=== PATIENT | male | born 1975 | race American Indian/Alaskan Native ===

== ENCOUNTER 2021-09-24 12:27 | Inpatient (IN) | payer MEDICARE ==
[2021-09-24] MEDS ORDERED: HYDROmorphone 1 MG/1 ML INJ IV ONE ×2 (14:16→17:55)
[2021-09-24] MEDS ORDERED: ONDANSETRON 4 MG/2 ML INJ IV ONE (14:16)
--- NOTE | 2021-09-24 14:55 | Emergency Department Report ---
HPI - General Chief Complaint: Abdominal Pain Time Seen by Provider: 09/24/21 14:06 - HPI HPI: Room 21 Patient is a 46-year-old male presenting with chief complaint of "pain." The patient does not answer questions or provide history despite questioning. History is obtained from the patient's son at bedside. He states yesterday the patient appeared "under the weather" and he stated states because the patient complained of feeling cold and the son noticed slightly increased work of breathing. Has been no history of cough or fever. Today the patient awakened at 11 AM and has been grabbing at his right upper quadrant. During the history the patient acknowledges he has pain but when asked where his pain is or to point the patient does not respond. Eventually the patient is seen pointing at his groin and the son believes he was trying to get to his right upper quadrant. The son believes there may have been an episode of vomiting and there was an episode of diarrhea. The son denies any recent antibiotics ED Past Medical Hx - Past Medical History Hx Renal Disease: Yes (ESRD on hemodialysis) Additional medical history: Hemolytic uremic syndrome - Surgical History Additional Surgical History: Left upper extremity fistula, renal transplant x2 - Family History Family history: no significant - Social History Smoking Status: Never Smoker Substance Use Type: None (Denies illicit drug use) ED Review of Systems ROS: Stated complaint: ABDONINAL PAIN Other details as noted in HPI Comment: Unobtainable due to pts medical conditions (Patient not answering questions) Physical Exam - Physical Exam Vital Signs: Vital Signs 09/24/21 09/24/21 09/24/21 12:33 13:02 13:16 Temperature 98.6 F Pulse Rate 120 H 117 H 118 H Respiratory 16 39 H Rate Blood Pressure Blood Pressure 183/117 [Left] O2 Sat by Pulse 94 93 Oximetry 09/24/21 09/24/21 09/24/21 13:30 13:46 14:00 Temperature Pulse Rate 116 H 116 H 112 H Respiratory 36 H 40 H 38 H Rate Blood Pressure 184/115 184/115 166/95 Blood Pressure [Left] O2 Sat by Pulse 91 91 100 Oximetry Physical Exam: GENERAL: The patient is well-developed well-nourished male lying on stretcher moaning apparently from pain but not answering questions. [] HEENT: Normocephalic. Atraumatic. Extraocular motions are intact. Patient has moist mucous membranes. NECK: Supple. Trachea midline CHEST/LUNGS: Clear to auscultation. There is no respiratory distress noted. HEART/CARDIOVASCULAR: Regular. There is no tachycardia. There is no gallop rub or murmur. ABDOMEN: Abdomen is soft, but patient moans when palpated in the right upper quadrant midepigastric region. Patient has normal bowel sounds. There is no abdominal distention. SKIN: There is no rash. There is no edema. There is no diaphoresis. NEURO: The patient is awake but does not answer questions during the interview or exam. The patient is not cooperative with history. MUSCULOSKELETAL: There is no evidence of acute injury. ED Course Vital Signs 09/24/21 09/24/21 09/24/21 12:33 13:02 13:16 Temperature 98.6 F Pulse Rate 120 H 117 H 118 H Respiratory 16 39 H Rate Blood Pressure Blood Pressure 183/117 [Left] O2 Sat by Pulse 94 93 Oximetry 09/24/21 09/24/21 09/24/21 13:30 13:46 14:00 Temperature Pulse Rate 116 H 116 H 112 H Respiratory 36 H 40 H 38 H Rate Blood Pressure 184/115 184/115 166/95 Blood Pressure [Left] O2 Sat by Pulse 91 91 100 Oximetry - Consultations Consultation #1: 09/24/21 19:17 Nephrology paged ED Medical Decision Making - Lab Data Result diagrams: 09/24/21 14:28 09/24/21 16:12 - Radiology Data Radiology results: report reviewed (Testicular ultrasound, CT abdomen pelvis, chest x-ray), image reviewed (Testicular ultrasound, CT abdomen pelvis, chest x- ray) interpreted by me: Chest [id number] bilateral infiltrates. No pneumothorax [facility] [address] [place] [address] Ultrasound Report Signed Patient: ARIN HARTMAN MR#: [id number] : 1975 Acct:[id number] Age/Sex: 46 / M ADM Date: 09/24/21 Loc: ED Attending Dr: Ordering Physician: PRISCILA GODFREY MD Date of Service: 09/24/21 Procedure(s): US testicular doppler comp Accession Number(s): [id number] cc: PRISCILA GODFREY MD SCROTAL ULTRASOUND HISTORY: Groin pain. TECHNIQUE: Grayscale and color Doppler imaging performed. COMPARISON: None FINDINGS: The right testicle measures 4.4 x 1.9 x 2.9 cm. The left testicle measures 3. By 2.0 x 3.1 cm. No evidence for testicular cyst, mass or microlithiasis. Spectral Doppler waveforms demonstrate arterial flow bilaterally. The epididymides are unremarkable. Trace bilateral hydroceles are identified which are likely physiologic. No significant varicocele. IMPRESSION: Unremarkable exam. No evidence for mass, torsion or inflammation. Signer Name: Addi Coelho Jr, MD Signed: 09/24/2021 3:27 PM Workstation Name: [id number] Transcribed By: TTR Dictated By: ADDI COELHO JR, MD Electronically Authenticated By: ADDI COELHO JR, MD Signed Date/Time: 09/24/211526 DD/ 25 TD/TT: [place] [address] Cat Scan Report Signed Patient: ARIN HARTMAN MR#: [id number] : 1975 Acct:[id number] Age/Sex: 46 / M ADM Date: 09/24/21 Loc: ED At [facility] Dr: Ordering Physician: PRISCILA GODFREY MD Date of Service: 09/24/21 Procedure(s): CT abdomen pelvis w con Accession Number(s): [id number] cc: PRISCILA GODFREY MD CT ABDOMEN AND PELVIS WITH CONTRAST HISTORY: Epigastric, right upper quadrant tenderness COMPARISON: None TECHNIQUE: Routine abdominal and pelvic CT exam performed following intravenous contrast administration.. All CT scans at this location are performed using CT dose reduction for ALARA by means of automated exposure control. FINDINGS: CT ABDOMEN: Lung Bases: There are small bilateral pleural effusions with airspace disease in the right lower lobe concerning for pneumonia. Liver: No significant abnormality. Biliary: No significant abnormality. Spleen: No significant abnormality. Unenlarged. Pancreas: No significant abnormality. Adrenals: No significant abnormality. Kidneys: Both kidneys are atrophic without focal mass. Lymphatics: No lymphadenopathy. Vasculature: No significant abnormality. Bowel/Peritoneum: No acute findings. Small gastric diverticulum arising from the posterior aspect of the gastric cardia. No obstruction or free air. CT PELVIC: : No significant abnormality. Lymphatics: No lymphadenopathy. Osseous Structures: No aggressive appearing osseous lesions. Sclerotic appearance of the bones in keeping with chronic medical renal disease. Additional Findings: None IMPRESSION: 1. Small bilateral pleural effusions with airspace disease in the right lower lobe suggesting pneumonia. 2. No additional acute findings in the abdomen or pelvis. 3. Bilateral renal atrophy. Signer Name: Kal Woods MD Signed: 09/24/2021 5:23 PM Workstation Name: [id number] Transcribed By: NETO Dictated By: Kal Woods MD Electronically Authenticated By: Kal Woods MD Signed Date/Time: 09/24/211722 DD/ 20 TD/TT: [facility] [address] [place] [address] XRay Report Signed Patient: ARIN HARTMAN MR#: [id number] : 1975 Acct:[id number] Age/Sex: 46 / M ADM Date: 09/24/21 Loc: ED Attending Dr: Ordering Physician: PRISCILA GODFREY MD Date of Service: 09/24/21 Procedure(s): XR chest 1V ap Accession Number(s): [id number] cc: PRISCILA GODFREY MD Fluoro Time In Minutes: CHEST 1 VIEW 09/24/2021 6:05 PM INDICATION / CLINICAL INFORMATION: Fever. COMPARISON: None available. FINDINGS: SUPPORT DEVICES: None. HEART / MEDIASTINUM: The heart size is normal with a left ventricular configuration. LUNGS / PLEURA: There are moderate patchy parenchymal opacities throughout both lungs, more prominent in the lower lung zones. There is a possible minimal right pleural effusion. No pneumothorax. ADDITIONAL FINDINGS: No significant addition al findings. IMPRESSION: Moderate patchy parenchymal opacities in both lungs are probably related to pneumonia. Asymmetric pulmonary edema and aspiration are less likely. Signer Name: Bandar Layton MD Signed: 09/24/2021 7:07 PM Workstation Name: [id number] Transcribed By: RT Dictated By: Bandar Layton MD Electronically Authenticated By: Bandar Layton MD Signed Date/Time: 09/24/211906 DD/ 05 TD/TT: - Differential Diagnosis Symptomatic cholelithiasis, peptic ulcer disease, SBO, testicular torsion Critical care attestation.: If time is entered above; I have spent that time in minutes in the direct care of this critically ill patient, excluding procedure time. ED Disposition Clinical Impression: Bilateral pneumonia, Hypoxia, Altered mental status, Suspected 2019 novel coronavirus infection Disposition: ADMITTED INPATIENT Is pt being admited?: Yes Does the pt Need Aspirin: No Condition: Fair Instructions: Bacterial Pneumonia (ED) Referrals: PRIMARY CARE,MD [Primary Care Provider] - 3-5 Days Time of Disposition: 19:19 (Care transferred to hospitalist (Dr. Epperson))
[2021-09-24 15:06] LABS: INR 1.09 (0.87-1.13)
[2021-09-24] MEDS ORDERED: ALBUTEROL 2.5 MG/3 ML NEBU IH ONE (15:16)
[2021-09-24 15:19] LABS: Basophils # (Auto) 0.1 K/mm3 (0.0-0.1); Basophils % (Auto) 0.4 % (0.0-1.8); Eosinophils % (Auto) 0.1 % (0.0-4.3); Hematocrit 21.1 % (35.5-45.6); Hemoglobin 6.9 gm/dl (11.8-15.2); Lymphocytes # (Auto) 1.1 K/mm3 (1.2-5.4); Lymphocytes % (Auto) 8.9 % (13.4-35.0); Mean Corpuscular HGB Conc 33 % (32-34); Mean Corpuscular Volume 85 fl (84-94); Monocytes # (Auto) 1.4 K/mm3 (0.0-0.8); Monocytes % (Auto) 12.1 % (0.0-7.3); Platelet Count 152 K/mm3 (140-440); Red Blood Count 2.47 M/mm3 (3.65-5.03); Red Cell Distribution Width 17.1 % (13.2-15.2)
--- NOTE | 2021-09-24 15:32 | Ultrasound Report ---
SCROTAL ULTRASOUND HISTORY: Groin pain. TECHNIQUE: Grayscale and color Doppler imaging performed. COMPARISON: None FINDINGS: The right testicle measures 4.4 x 1.9 x 2.9 cm. The left testicle measures 3. By 2.0 x 3.1 cm. No evidence for testicular cyst, mass or microlithiasis. Spectral Doppler waveforms demonstrate a rterial flow bilaterally. The epididymides are unremarkable. Trace bilateral hydroceles are identifie d which are likely physiologic. No significant varicocele. IMPRESSION: Unremarkable exam. No evidence for mass, torsion or inflammation. Signer Name: Addi Coelho Jr, MD Signed: 09/24/2021 3:27 PM Workstation Name: [id number]
[2021-09-24 15:54] LABS: Albumin 3.9 g/dL (3.9-5); Calcium 9.8 mg/dL (8.4-10.2)
[2021-09-24] MEDS ORDERED: ACETAMINOPHEN 500 MG TAB PO ONE (16:37)
[2021-09-24 16:59] LABS: Albumin 3.7 g/dL (3.9-5); Calcium 10.2 mg/dL (8.4-10.2)
[2021-09-24 17:16] LABS: Chol/HDL Ratio 5.08 %
--- NOTE | 2021-09-24 17:27 | Cat Scan Report ---
CT ABDOMEN AND PELVIS WITH CONTRAST HISTORY: Epigastric, right upper quadrant tenderness COMPARISON: None TECHNIQUE: Routine abdominal and pelvic CT exam performed following intravenous contrast administrat ion.. All CT scans at this location are performed using CT dose reduction for ALARA by means of autom ated exposure control. FINDINGS: CT ABDOMEN: Lung Bases: There are small bilateral pleural effusions with airspace disease in the right lower lobe concerning for pneumonia. Liver: No significant abnormality. Biliary: No significant abnormality. Spleen: No significant abnormality. Unenlarged. Pancreas: No significant abnormality. Adrenals: No significant abnormality. Kidneys: Both kidneys are atrophic without focal mass. Lymphatics: No lymphadenopathy. Vasculature: No significant abnormality. Bowel/Peritoneum: No acute findings. Small gastric diverticulum arising from the posterior aspect of the gastric cardia. No obstruction or free air. CT PELVIC: : No significant abnormality. Lymphatics: No lymphadenopathy. Osseous Structures: No aggressive appearing osseous lesions. Sclerotic appearance of the bones in mena kim with chronic medical renal disease. Additional Findings: None IMPRESSION: 1. Small bilateral pleural effusions with airspace disease in the right lower lobe suggesting pneumon ia. 2. No additional acute findings in the abdomen or pelvis. 3. Bilateral renal atrophy. Signer Name: Kal Woods MD Signed: 09/24/2021 5:23 PM Workstation Name: [id number]
[2021-09-24] MEDS ORDERED: INSULIN REGULAR, HUMAN 100 UNITS/1 ML IV ONE (17:28)
[2021-09-24] MEDS ORDERED: DEXTROSE 50% IN WATER (25GM) 50 ML SYRINGE IV ONE (17:28)
[2021-09-24] MEDS ORDERED: SODIUM BICARB 8.4% 50 MEQ/50 ML SYRINGE IV ONE (17:28)
[2021-09-24] MEDS ORDERED: hydrALAZINE 20 MG/1 ML INJ IV ONE (17:30)
[2021-09-24] MEDS ORDERED: cefTRIAXone/NS 1 GM/50 ML 1 GM/50 ML BAG IV ONE (17:41)
[2021-09-24] MEDS ORDERED: AZITHROMYCIN/NS 500 MG/250 ML 500 MG/250 ML BAG IV ONE (17:41)
[2021-09-24] MEDS ORDERED: dexAMETHasone 20 MG/5 ML VIAL IV ONE (18:32)
--- NOTE | 2021-09-24 19:12 | XRay Report ---
CHEST 1 VIEW 09/24/2021 6:05 PM INDICATION / CLINICAL INFORMATION: Fever. COMPARISON: None available. FINDINGS: SUPPORT DEVICES: None. HEART / MEDIASTINUM: The heart size is normal with a left ventricular configuration. LUNGS / PLEURA: There are moderate patchy parenchymal opacities throughout both lungs, more prominent in the lower lung zones. There is a possible minimal right pleural effusion. No pneumothorax. ADDITIONAL FINDINGS: No significant additional findings. IMPRESSION: Moderate patchy parenchymal opacities in both lungs are probably related to pneumonia. As ymmetric pulmonary edema and aspiration are less likely. Signer Name: Bandar Layton MD Signed: 09/24/2021 7:07 PM Workstation Name: [id number]
--- NOTE | 2021-09-24 19:19 | History and Physical Report ---
History of Present Illness Chief complaint: He has been under the weather for the past few days History of present illness: 46 YO Male with ESRD on Home Dialysis, HUS presents to ED for evaluation. Patient is confused with diminished cognition at the time my evaluation is unable to provide history. Patient history taken from EMS staff, ED staff, as well as the patient's son who is at bedside during exam and interview. Patient sounds at the patient has been "under the weather". Over the past 3 days with persistent and worsening symptoms over the same timeframe. Patient signed acknowledges weakness, fatigue, shortness of breath, body aches, diminished sense of smell, diminished sense of taste. The patient awakened today from sleep at 1100 hrs. and complained of abdominal discomfort. Patient was also fou nd to be confused. EMS was notified and upon arrival the patient was found to be in distress and subsequently transported to [facility] for further care and evaluation of the aforementioned symptoms. The patient was seen and evaluated in the emergency department. All lab and imaging studies reviewed. Patient was found to have a pulse oximetry of 88% on room air which is consistent with acute hypoxemic respiratory failure. Patient underwent chest x-ray and was found to have bilateral pneumonia complicated by sepsis. Patient admitted to [facility] and initiated on sepsis protocol as well as pneumonia protocol, in conjunction with coronavirus protocol. No reports of fever, chills, chest pain, palpitation, skin rash, recent ill contacts, or known exposure to COVID-19. No prior admission for review. No medication listed at time of admission for reconciliation. Advanced care planning conducted in ED. Past History Past Medical History: ESRD, other (See HPI) Past Surgical History: Other (Dialysis access, renal transplant) Social history: single. denies: smoking, alcohol abuse, prescription drug abuse Family history: no significant family history Medications and Allergies Allergies Allergy/AdvReac Type Severity Reaction Status Date / Time No Known Allergies Allergy Unverified 09/24/21 12:37 Active Meds: Active Medications Calcium Gluconate 1,000 mg/ (Sodium Chloride) 110 mls @ 660 mls/hr IV ONCE ONE Stop: 09/24/21 17:37 Review of Systems ROS unobtainable: due to mental status Exam - Constitutional Vitals: Temp Pulse Resp BP Pulse Ox 98.5 F 116 H 36 H 194/127 85 09/24/21 16:44 09/24/21 18:46 09/24/21 18:46 09/24/21 18:46 09/24/21 18:46 General appearance: Present: mild distress - EENT Eyes: Present: PERRL ENT: clear oral mucosa, hearing decreased - Neck Neck: Present: supple, normal ROM - Respiratory Respiratory effort: labored Respiratory: bilateral: diminished, rhonchi - Cardiovascular Rhythm: other (Tachycardia) Heart Sounds: Present: S1 & S2. Absent: rub, click - Extremities Extremities: pulses symmetrical, No edema Peripheral Pulses: abnormal (Capillary refill greater than 3.5 seconds) - Abdominal General gastrointestinal: Present: soft, non-tender, non-distended, normal bowel sounds Male genitourinary: Present: normal - Integumentary Integumentary: Present: clear, dry, clammy, decreased turgor - Musculoskeletal Musculoskeletal: generalized weakness - Psychiatric Psychiatric: no appropriate mood/affect, no intact judgment & insight, no memory intact - Neurologic Neurologic: CNII-XII intact, moves all extremities, no gait normal HEART Score - HEART Score Troponin: Troponin T 0.083 ng/mL (0.00-0.029) H 09/24/21 16:12 Results - Labs CBC & Chem 7: 09/24/21 14:28 09/24/21 16:12 Labs: Abnormal lab results 09/24/21 09/24/21 09/24/21 Range/Units 14:28 14:28 14:28 WBC 11.9 H (4.5-11.0) K/mm3 RBC 2.47 L (3.65-5.03) M/mm3 Hgb 6.9 L (11.8-15.2) gm/dl Hct 21.1 L (35.5-45.6) % RDW 17.1 H (13.2-15.2) % Lymph % (Auto) 8.9 L (13.4-35.0) % Eaton % (Auto) 12.1 H (0.0-7.3) % Lymph # (Auto) 1.1 L (1.2-5.4) K/mm3 Eaton # (Auto) 1.4 H (0.0-0.8) K/mm3 Seg Neutrophils % 78.5 H (40.0-70.0) % Seg Neutrophils # 9.3 H (1.8-7.7) K/mm3 PT 15.3 H (12.2-14.9) Sec. Sodium 134 L (137-145) mmol/L Potassium 5.4 H (3.6-5.0) mmol/L Chloride 91.9 L (98-107) mmol/L Carbon Dioxide (22-30) mmol/L BUN 95 H (9-20) mg/dL Creatinine 15.8 H (0.8-1.3) mg/dL Glucose (75-100) mg/dL Magnesium (1.7-2.3) mg/dL Troponin T (0.00-0.029) ng/mL Albumin (3.9-5) g/dL Triglycerides (2-149) mg/dL HDL Cholesterol (40-59) mg/dL 09/24/21 Range/Units 16:12 WBC (4.5-11.0) K/mm3 RBC (3.65-5.03) M/mm3 Hgb (11.8-15.2) gm/dl Hct (35.5-45.6) % RDW (13.2-15.2) % Lymph % (Auto) (13.4-35.0) % Eaton % (Auto) (0.0-7.3) % Lymph # (Auto) (1.2-5.4) K/mm3 Eaton # (Auto) (0.0-0.8) K/mm3 Seg Neutrophils % (40.0-70.0) % Seg Neutrophils # (1.8-7.7) K/mm3 PT (12.2-14.9) Sec. Sodium 134 L (137-145) mmol/L Potassium 5.6 H (3.6-5.0) mmol/L Chloride 89.9 L (98-107) mmol/L Carbon Dioxide 20 L (22-30) mmol/L BUN 94 H (9-20) mg/dL Creatinine 17.1 H (0.8-1.3) mg/dL Glucose 107 H (75-100) mg/dL Magnesium 2.40 H (1.7-2.3) mg/dL Troponin T 0.083 H (0.00-0.029) ng/mL Albumin 3.7 L (3.9-5) g/dL Triglycerides 169 H (2-149) mg/dL HDL Cholesterol 23 L (40-59) mg/dL Assessment and Plan - Patient Problems (1) Sepsis Current Visit: Yes Status: Acute Qualifiers: Acute respiratory failure type: with hypoxia Plan to address problem: Sepsis protocol: Chest x-ray, CBC, CMP, urinalysis, IV antibiotic therapy, IV fluid resuscitation therapy, maintain mean arterial pressure greater than or equal to 65, serial lactic acid level, monitor fluid balance, IV pressor support as clinically indicated. (2) Acute hypoxemic respiratory failure Current Visit: Yes Status: Acute Plan to address problem: Chest x-ray, supplemental oxygen, pulse oximetry, nebulizer therapy, pulmonary toilet. Will consider high flow supplemental oxygen if patient is unable to maintain pulse oximetry on supplemental oxygen via nasal cannula. (3) Pneumonia Current Visit: Yes Status: Acute Plan to address problem: Pneumonia protocol: Chest x-ray, CBC, CMP, IV antibiotic therapy, IV fluid resuscitation therapy, nebulized therapy, blood culture. (4) Anemia of chronic disease Current Visit: Yes Status: Acute Plan to address problem: Nephrology team consulted. Will consider packed red cell transfusion with dialysis. (5) End stage renal disease Current Visit: Yes Status: Acute Plan to address problem: Nephrology team consulted in ED. Dialysis as per renal team. (6) Toxic metabolic encephalopathy Current Visit: Yes Status: Acute Plan to address problem: Supportive care, treat sepsis, BMP, repeat BMP in a.m., neurochecks (7) Suspected 2019 novel coronavirus infection Current Visit: Yes Status: Acute Plan to address problem: Coronavirus protocol: IV antibiotic therapy, IV steroid therapy, supplemental oxygen, pulse oximetry, chest x-ray, vitamin C therapy, vitamin D therapy, zinc therapy, prophylactic anticoagulation, infectious disease service consulted. (8) DVT prophylaxis Current Visit: Yes Status: Acute Plan to address problem: SCD to bilateral lower extremities while in bed, prophylactic anticoagulation. (9) Advance care planning Current Visit: Yes Status: Acute Plan to address problem: Disease education data, care plan discussed, diagnoses discussed, prognosis discussed, patient is full code. Patient family knowledges understanding and agreement with care plan, +30 minutes.
[2021-09-24] MEDS ORDERED: SODIUM CHLORIDE 0.9% 1000 ML IV SOLN IV ONE (19:31)
[2021-09-24] MEDS ORDERED: HYDROmorphone 0.5 MG/0.5 ML INJ IV PRN ×2 (19:31)
[2021-09-24] MEDS ORDERED: oxyCODONE /ACETAMINOPHEN 5-325MG TAB PO PRN (19:31)
[2021-09-24] MEDS ORDERED: ALBUTEROL 2.5 MG/3 ML NEBU IH PRN (19:31)
[2021-09-24] MEDS ORDERED: ACETAMINOPHEN 325 MG TAB PO PRN ×2 (19:31)
[2021-09-24] MEDS ORDERED: CALCIUM GLUCONATE 1,000 MG in SODIUM CHLORIDE 0.9% 100 ML IV ONE (19:50)
[2021-09-24] MEDS: AZITHROMYCIN/NS 500 MG/250 ML 500 MG/250 ML BAG IV SCH (20:10)
[2021-09-24] MEDS: cefTRIAXone/NS 2 GM/100 ML 2 GM/100 ML BAG IV SCH (20:11)
[2021-09-24] MEDS: ZINC SULFATE 220 MG CAP PO SCH (22:00)
[2021-09-24] MEDS: ASCORBIC ACID 500 MG TAB PO SCH (22:00)
[2021-09-24] MEDS: methylPREDNISolone Sod Succinate 40 MG/1 ML INJ IV SCH (22:00)
[2021-09-25] MEDS: HEPARIN 5,000 UNIT/1 ML VIAL SUB-Q SCH ×2 (06:00→10:56)
[2021-09-25] MEDS: methylPREDNISolone Sod Succinate 40 MG/1 ML INJ IV SCH ×3 (06:00→23:56)
[2021-09-25 08:18] LABS: ABG Base Excess -1.4 mmol/L (-2.0-3.0); ABG HCO3 23.2 mmol/L (20.0-26.0); ABG Methemoglobin 0.5 % (0.0-1.5); ABG Oxygen Saturation 91.4 % (95.0-99.0); ABG PCO2 38.5 mm Hg; ABG PH 7.399 pH Units (7.350-7.450)
--- NOTE | 2021-09-25 10:11 | Event Note ---
Date: 09/25/21 Positive Blood Culture: Gram positive cocci in clusters.
[2021-09-25] MEDS: ASCORBIC ACID 500 MG TAB PO SCH ×2 (10:56→23:56)
[2021-09-25] MEDS: ZINC SULFATE 220 MG CAP PO SCH ×2 (10:56→23:57)
[2021-09-25] MEDS: HYDROmorphone 0.5 MG/0.5 ML INJ IV PRN ×2 (12:04→23:57)
[2021-09-25] MEDS ORDERED: VANCOMYCIN 1,500 MG in SODIUM CHLORIDE 0.9% 500 ML 500 ML IV SCH (13:00)
[2021-09-25] MEDS ORDERED: VANCOMYCIN PHARMACY TO DOSE IV SCH (13:00)
--- NOTE | 2021-09-25 13:18 | Consultation ---
History of Present Illness - Reason for Consult Consult date: 09/25/21 end stage renal disease - History of Present Illness This is a 40 year old male who presented to the hospital with a chief complaint of not feeling well. On evaluation in E.R patient is found to be Septic with Hypoxemia and placed on Sepsis protocol. Patient has ESRD and does home hemodialysis. Currently patient is awake and was able to let consent to hemodialysis and told me he does hemodialysis at home under a yard pipe grader named Dr. Estes. He has a left AVG. His orientation is brief at times and he does not remember when last he had dialysis. We are being consulted fopr management of this patient's ESRD. Past History Past Medical History: ESRD, other (See HPI) Past Surgical History: Other (Dialysis access, renal transplant) Social history: single. denies: smoking, alcohol abuse, prescription drug abuse Family history: diabetes Medications and Allergies Allergies Allergy/AdvReac Type Severity Reaction Status Date / Time No Known Allergies Allergy Unverified 09/24/21 12:37 Active Meds: Active Medications Acetaminophen (Acetaminophen 325 Mg Tab) 650 mg PO Q6H PRN PRN Reason: Pain MILD(1-3)/Fever >100.5/GARCIA Last Admin: 09/25/21 11:10 Dose: 650 mg Albuterol (Albuterol 2.5 Mg/3 Ml Nebu) 2.5 mg IH Q3HRT PRN PRN Reason: Shortness Of Breath Ascorbic Acid (Ascorbic Acid 500 Mg Tab) 500 mg PO BID [facility] Last Admin: 09/25/21 10:56 Dose: 500 mg Cholecalciferol (Cholecalciferol (Vit D3) 400 Unit Tab) 1,000 unit PO QDAY [facility] Heparin Sodium (Porcine) (Heparin 5,000 Unit/1 Ml Vial) 5,000 unit SUB-Q Q12HR [facility] Last Admin: 09/25/21 10:56 Dose: 5,000 unit Hydromorphone HCl (Hydromorphone 0.5 Mg/0.5 Ml Inj) 0.25 mg IV Q4H PRN PRN Reason: Pain, Moderate (4-6) Last Admin: 09/24/21 19:55 Dose: 0.25 mg Hydromorphone HCl (Hydromorphone 0.5 Mg/0.5 Ml Inj) 0.5 mg IV Q4H PRN PRN Reason: Pain , Severe (7-10) Last Admin: 09/25/21 12:04 Dose: 0.5 mg Ceftriaxone Sodium (Rocephin/Ns 2 Gm/100 Ml) 2 gm in 100 mls @ 200 mls/hr IV Q24H [facility]; Protocol Last Admin: 09/24/21 20:11 Dose: Not Given Azithromycin (Zithromax/Ns) 500 mg in 250 mls @ 250 mls/hr IV Q24H [facility]; Protocol Last Admin: 09/24/21 20:10 Dose: Not Given Vancomycin HCl 1,500 mg/ (Sodium Chloride) 530 mls @ 333.333 mls/hr IV ONCE@1300 [facility] Stop: 09/25/21 17:00 Methylprednisolone Sodium Succinate (Methylprednisolone Sod Succinate 40 Mg/1 Ml Inj) 40 mg IV Q8HR [facility] Last Admin: 09/25/21 06:00 Dose: 40 mg Oxycodone/Acetaminophen (Oxycodone /Acetaminophen 5-325mg Tab) 1 tab PO Q6H PRN PRN Reason: Pain, Moderate (4-6) Sodium Chloride (Sodium Chloride 0.9% 10 Ml Flush Syringe) 10 ml IV BID [facility] Last Admin: 09/25/21 10:56 Dose: 10 ml Sodium Chloride (Sodium Chloride 0.9% 10 Ml Flush Syringe) 10 ml IV PRN PRN PRN Reason: LINE FLUSH Zinc Sulfate (Zinc Sulfate 220 Mg Cap) 220 mg PO BID [facility] Last Admin: 09/25/21 10:56 Dose: 220 mg Review of Systems ROS unobtainable: due to mental status Exam - Vital Signs Vital signs: Vital Signs Temp Pulse Resp BP Pulse Ox 98.6 F 120 H 16 183/117 94 09/24/21 12:33 09/24/21 12:33 09/24/21 12:33 09/24/21 12:33 09/24/21 12:33 - General Appearance General appearance: well-developed, appears stated age EENT: ATNC, PERRL, hearing intact, vision intact Neck: Present: neck supple, trachea midline Respiratory: Decreased Breath Sounds Heart: S1S2 Gastrointestinal: Present: normoactive bowel sounds Integumentary: warm and dry Neurologic: other (Awake and alert, oriented to self and place) Musculoskeletal: Present: other (No edema. Has left AVG) Results - Lab Results 09/24/21 14:28 09/24/21 16:12 Most recent lab results ABG pH 7.399 pH Units (7.350-7.450) 09/25/21 07:52 ABG pCO2 38.5 mm Hg 09/25/21 07:52 ABG pO2 56.0 mm Hg (80.0-90.0) L 09/25/21 07:52 ABG HCO3 23.2 mmol/L (20.0-26.0) 09/25/21 07:52 ABG O2 Saturation 91.4 % (95.0-99.0) L 09/25/21 07:52 Calcium 10.2 mg/dL (8.4-10.2) 09/24/21 16:12 Magnesium 2.40 mg/dL (1.7-2.3) H 09/24/21 16:12 Assessment and Plan Assessment: ESRD on hemodialysis Hypertension AMS Sepsis Anemia Hyperkalemia Plan: Hemodialysis today for UF and clearance, will also need hemodialysis tomorrow as well Has left AVG noted to left forearm Patient consented to continue receiving HD while hospitalized Fluid restriction of 1 liter per day Low potassium diet Renally dose medications Strict I/O's daily Assess dialysis needs daily Plan of care reviewed by Dr. Villegas
--- NOTE | 2021-09-25 13:18 | Consultation ---
History of Present Illness - Reason for Consult Consult date: 09/25/21 - History of Present Illness 46-year-old male past medical history ESRD on home dialysis presented to hospital with acute encephalopathy. Family reported that he has been sick for the past few days with weakness, fatigue, shortness of breath, other typical COVID symptoms. Afebrile since admission with a white count 11.9. COVID pending. Blood cultures with gram-positive cocci in pairs Imaging personally reviewed: CT abdomen pelvis: No acute findings aside from small bilateral pleural effusions Chest x-ray: Moderate patchy parenchymal opacities Review of systems: Deferred to reduce to the risk of transmission of COVID-19 Past History Past Medical History: ESRD, other (See HPI) Past Surgical History: Other (Dialysis access, renal transplant) Social history: single. denies: smoking, alcohol abuse, prescription drug abuse Family history: diabetes Medications and Allergies Allergies Allergy/AdvReac Type Severity Reaction Status Date / Time No Known Allergies Allergy Unverified 09/24/21 12:37 Active Meds: Active Medications Acetaminophen (Acetaminophen 325 Mg Tab) 650 mg PO Q6H PRN PRN Reason: Pain MILD(1-3)/Fever >100.5/GARCIA Last Admin: 09/25/21 11:10 Dose: 650 mg Albuterol (Albuterol 2.5 Mg/3 Ml Nebu) 2.5 mg IH Q3HRT PRN PRN Reason: Shortness Of Breath Ascorbic Acid (Ascorbic Acid 500 Mg Tab) 500 mg PO BID [facility] Last Admin: 09/25/21 10:56 Dose: 500 mg Cholecalciferol (Cholecalciferol (Vit D3) 400 Unit Tab) 1,000 unit PO QDAY [facility] Heparin Sodium (Porcine) (Heparin 5,000 Unit/1 Ml Vial) 5,000 unit SUB-Q Q12HR [facility] Last Admin: 09/25/21 10:56 Dose: 5,000 unit Hydromorphone HCl (Hydromorphone 0.5 Mg/0.5 Ml Inj) 0.25 mg IV Q4H PRN PRN Reason: Pain, Moderate (4-6) Last Admin: 09/24/21 19:55 Dose: 0.25 mg Hydromorphone HCl (Hydromorphone 0.5 Mg/0.5 Ml Inj) 0.5 mg IV Q4H PRN PRN Reason: Pain , Severe (7-10) Last Admin: 09/25/21 12:04 Dose: 0.5 mg Ceftriaxone Sodium (Rocephin/Ns 2 Gm/100 Ml) 2 gm in 100 mls @ 200 mls/hr IV Q24H [facility]; Protocol Last Admin: 09/24/21 20:11 Dose: Not Given Azithromycin (Zithromax/Ns) 500 mg in 250 mls @ 250 mls/hr IV Q24H [facility]; Protocol Last Admin: 09/24/21 20:10 Dose: Not Given Vancomycin HCl 1,500 mg/ (Sodium Chloride) 530 mls @ 333.333 mls/hr IV ONCE@1300 [facility] Stop: 09/25/21 17:00 Methylprednisolone Sodium Succinate (Methylprednisolone Sod Succinate 40 Mg/1 Ml Inj) 40 mg IV Q8HR [facility] Last Admin: 09/25/21 06:00 Dose: 40 mg Oxycodone/Acetaminophen (Oxycodone /Acetaminophen 5-325mg Tab) 1 tab PO Q6H PRN PRN Reason: Pain, Moderate (4-6) Sodium Chloride (Sodium Chloride 0.9% 10 Ml Flush Syringe) 10 ml IV BID [facility] Last Admin: 09/25/21 10:56 Dose: 10 ml Sodium Chloride (Sodium Chloride 0.9% 10 Ml Flush Syringe) 10 ml IV PRN PRN PRN Reason: LINE FLUSH Zinc Sulfate (Zinc Sulfate 220 Mg Cap) 220 mg PO BID [facility] Last Admin: 09/25/21 10:56 Dose: 220 mg Physical Examination - Physical Exam Narrative exam: Physical exam deferred to reduce risk of transmission of COVID-19. Please refer to primary team's note. - Constitutional Vitals: Vital Signs Temp Pulse Resp BP Pulse Ox 97.5 F L 68 13 155/92 87 09/25/21 10:06 09/25/21 11:00 09/25/21 11:00 09/25/21 11:00 09/25/21 11:00 Temperature -Last 24 Hours Temperature 97.5 F Temperature 98.5 F Results - Labs CBC & Chem 7: 09/24/21 14:28 09/24/21 16:12 Labs: Abnormal lab results 09/24/21 09/24/21 09/24/21 Range/Units 14:28 14:28 14:28 WBC 11.9 H (4.5-11.0) K/mm3 RBC 2.47 L (3.65-5.03) M/mm3 Hgb 6.9 L (11.8-15.2) gm/dl Hct 21.1 L (35.5-45.6) % RDW 17.1 H (13.2-15.2) % Lymph % (Auto) 8.9 L (13.4-35.0) % [place] % (Auto) 12.1 H (0.0-7.3) % Lymph # (Auto) 1.1 L (1.2-5.4) K/mm3 [place] # (Auto) 1.4 H (0.0-0.8) K/mm3 Seg Neutrophils % 78.5 H (40.0-70.0) % Seg Neutrophils # 9.3 H (1.8-7.7) K/mm3 PT 15.3 H (12.2-14.9) Sec. ABG pO2 (80.0-90.0) mm Hg ABG O2 Saturation (95.0-99.0) % ABG Hemoglobin (14.0-18.0) gm/dl Oxyhemoglobin (95.0-99.0) % Sodium 134 L (137-145) mmol/L Potassium 5.4 H (3.6-5.0) mmol/L Chloride 91.9 L (98-107) mmol/L Carbon Dioxide (22-30) mmol/L BUN 95 H (9-20) mg/dL Creatinine 15.8 H (0.8-1.3) mg/dL Glucose (75-100) mg/dL POC Glucose (70-105) mg/dL Magnesium (1.7-2.3) mg/dL Troponin T (0.00-0.029) ng/mL Albumin (3.9-5) g/dL Triglycerides (2-149) mg/dL HDL Cholesterol (40-59) mg/dL 09/24/21 09/24/21 09/25/21 Range/Units 16:12 19:04 07:52 WBC (4.5-11.0) K/mm3 RBC (3.65-5.03) M/mm3 Hgb (11.8-15.2) gm/dl Hct (35.5-45.6) % RDW (13.2-15.2) % Lymph % (Auto) (13.4-35.0) % [place] % (Auto) (0.0-7.3) % Lymph # (Auto) (1.2-5.4) K/mm3 [place] # (Auto) (0.0-0.8) K/mm3 Seg Neutrophils % (40.0-70.0) % Seg Neutrophils # (1.8-7.7) K/mm3 PT (12.2-14.9) Sec. ABG pO2 56.0 L (80.0-90.0) mm Hg ABG O2 Saturation 91.4 L (95.0-99.0) % ABG Hemoglobin 7.3 L (14.0-18.0) gm/dl Oxyhemoglobin 89.5 L (95.0-99.0) % Sodium 134 L (137-145) mmol/L Potassium 5.6 H (3.6-5.0) mmol/L Chloride 89.9 L (98-107) mmol/L Carbon Dioxide 20 L (22-30) mmol/L BUN 94 H (9-20) mg/dL Creatinine 17.1 H (0.8-1.3) mg/dL Glucose 107 H (75-100) mg/dL POC Glucose 124 H (70-105) mg/dL Magnesium 2.40 H (1.7-2.3) mg/dL Troponin T 0.083 H (0.00-0.029) ng/mL Albumin 3.7 L (3.9-5) g/dL Triglycerides 169 H (2-149) mg/dL HDL Cholesterol 23 L (40-59) mg/dL Assessment and Plan Cultures: Blood culture gram-positive cocci in pairs COVID-19 pending A/P: 46-year-old male past medical history ESRD on home dialysis now with: #Acute sepsis: With leukocytosis, tachypnea. Likely secondary to gram-positive bacteremia, possible COVID-19. #COVID PUI: With medical symptoms and x-ray findings. Awaiting PCR #Gram-positive cocci bacteremia: Awaiting culture finalization. Likely secondary to dialysis. #ESRD on HD: Renally dose medications. Recs: -Continue ceftriaxone and azithromycin for now -Continue vancomycin pending culture results. -Follow-up blood cultures -Obtain TTE, repeat blood cultures -Follow COVID-19 PCR -Patient already on empiric steroids per primary -Not a candidate for Remdesivir Thank you for the consult, we will continue to follow. Isidro Sprague MD [facility] O: [phone] F: [phone]
--- NOTE | 2021-09-25 13:24 | Progress Note ---
Assessment and Plan Assessment and plan: 46 YO Male with ESRD on Home Dialysis, HUS presents to ED for evaluation. Patient is confused with diminished cognition at the time my evaluation is unable to provide history. Patient history taken from EMS staff, ED staff, as well as the patient's son who is at bedside during exam and interview. Patient sounds at the patient has been "under the weather". Over the past 3 days with persistent and worsening symptoms over the same timeframe. Patient signed acknowledges weakness, fatigue, shortness of breath, body aches, diminished sense of smell, diminished sense of taste. The patient awakened today from sleep at 1100 hrs. and complained of abdominal discomfort. Patient was also found to be confused. EMS was notified and upon arrival the patient was found to be in distress and subsequently transported to [facility] for further care and evaluation of the aforementioned symptoms. The patient was seen and evaluated in the emergency department. All lab and imaging studies reviewed. Patient was found to have a pulse oximetry of 88% on room air which is consistent with acute hypoxemic respiratory failure. Patient underwent chest x-ray and was found to have bilateral pneumonia complicated by sepsis. Patient admitted to [facility] and initiated on sepsis protocol as well as pneumonia protocol, in conjunction with coronavirus protocol. No reports of fever, chills, chest pain, palpitation, skin rash, recent ill contacts, or known exposure to COVID-19. No prior admission for review. No medication listed at time of admission for reconciliation. Advanced care planning conducted in ED. 09/25: Patient remains confused at this time. Work-up so far has been negative CT abdomen pelvis was negative except for small pleural effusion. Testicular ultrasound was reported negative. Still have not been able to speak to the family to obtain further information. Awaiting further cultures and work-up. We will obtain a CT head. We will obtain neurology evaluation if neuro status does not improve. Will reevaluate following HD. Patient at this time is tolerating bedside swallow evaluation so we will start on renal diet. (1) Sepsis of unknown etiology Current Visit: Yes Status: Acute Qualifiers: Acute respiratory failure type: with hypoxia Plan to address problem: Sepsis protocol: Chest x-ray, CBC, CMP, urinalysis, IV antibiotic therapy, IV fluid resuscitation therapy, maintain mean arterial pressure greater than or equal to 65, serial lactic acid level, monitor fluid balance, IV pressor support as clinically indicated. (2) Acute hypoxemic respiratory failure Current Visit: Yes Status: Acute Plan to address problem: Chest x-ray, supplemental oxygen, pulse oximetry, nebulizer therapy, pulmonary toilet. Will consider high flow supplemental oxygen if patient is unable to maintain pulse oximetry on supplemental oxygen via nasal cannula. (3) Pneumonia Current Visit: Yes Status: Acute Plan to address problem: Pneumonia protocol: Chest x-ray, CBC, CMP, IV antibiotic therapy, IV fluid resuscitation therapy, nebulized therapy, blood culture. (4) Anemia of chronic disease Current Visit: Yes Status: Acute Plan to address problem: Nephrology team consulted. Will consider packed red cell transfusion with dialysis. (5) End stage renal disease Current Visit: Yes Status: Acute Plan to address problem: Nephrology team consulted in ED. Dialysis as per renal team. (6) Toxic metabolic encephalopathy Current Visit: Yes Status: Acute Plan to address problem: Supportive care, treat sepsis, BMP, repeat BMP in a.m., neurochecks Will obtain CT of the head (7) Suspected 2019 novel coronavirus infection Current Visit: Yes Status: Acute Plan to address problem: Coronavirus protocol: IV antibiotic therapy, IV steroid therapy, supplemental oxygen, pulse oximetry, chest x-ray, vitamin C therapy, vitamin D therapy, zinc therapy, prophylactic anticoagulation, infectious disease service consulted. (8) hyperkalemia likely related to renal failure (9) DVT prophylaxis Current Visit: Yes Status: Acute Plan to address problem: SCD to bilateral lower extremities while in bed, prophylactic anticoagulation. (10) Advance care planning Current Visit: Yes Status: Acute Plan to address problem: Disease education data, care plan discussed, diagnoses discussed, prognosis discussed, patient is full code. Patient family knowledges understanding and agreement with care plan, +30 minutes. The high probability of a clinically significant, sudden or life threatening deterioration of the [multiple organs including renal] system(s) required my full and direct attention, intervention and personal management. The aggregate critical care time was [35] minutes. This time is in addition to time spent performing reported procedures but includes the following: [x] Data Review and interpretation [x] Patient assessment and monitoring of vital signs [x] Documentation [x] Medication orders and management History Interval history: Patient seen and examine, remains confused otherwise no new complaints. Have been trying to obtain contact information for family and no contact yet Hospitalist Physical - Physical exam Narrative exam: VITAL SIGNS: Reviewed. GENERAL: The patient appears normally developed, Vital signs as documented. HEAD: No signs of head trauma. EYES: Pupils are equal. Extraocular motions intact. EARS: Hearing grossly intact. MOUTH: Oropharynx is normal. NECK: No adenopathy, no JVD. CHEST: Chest with clear breath sounds bilaterally. No wheezes, rales, or rhonchi. CARDIAC: Regular rate and rhythm. S1 and S2, without murmurs, gallops, or rubs. VASCULAR: No Edema. Peripheral pulses normal and equal in all extremities. ABDOMEN: Soft, non tender and non distended. No rebound or guarding, and no masses palpated. Bowel Sounds normal. MUSCULOSKELETAL: Good range of motion of all major joints. Extremities without clubbing, cyanosis or edema. NEUROLOGIC EXAM: Awake but cannot assess orientation no focal sensory or s trength deficits. Follows some commands otherwise Dysphagia. PSYCHIATRIC: Flat affect SKIN: detail exam as documented in skin assessment - Constitutional Vitals: Temp Pulse Resp BP Pulse Ox 97.5 F L 68 13 155/92 87 09/25/21 10:06 09/25/21 11:00 09/25/21 11:00 09/25/21 11:00 09/25/21 11:00 General appearance: Present: mild distress HEART Score - HEART Score Troponin: Troponin T 0.083 ng/mL (0.00-0.029) H 09/24/21 16:12 Results - Labs CBC & Chem 7: 09/24/21 14:28 09/24/21 16:12 Labs: Laboratory Last Values WBC 11.9 K/mm3 (4.5-11.0) H 09/24/21 14:28 RBC 2.47 M/mm3 (3.65-5.03) L 09/24/21 14:28 Hgb 6.9 gm/dl (11.8-15.2) L 09/24/21 14:28 Hct 21.1 % (35.5-45.6) L 09/24/21 14:28 MCV 85 fl (84-94) 09/24/21 14:28 MCH 28 pg (28-32) 09/24/21 14:28 MCHC 33 % (32-34) 09/24/21 14:28 RDW 17.1 % (13.2-15.2) H 09/24/21 14:28 Plt Count 152 K/mm3 (140-440) 09/24/21 14:28 Lymph % (Auto) 8.9 % (13.4-35.0) L 09/24/21 14:28 [place] % (Auto) 12.1 % (0.0-7.3) H 09/24/21 14:28 Eos % (Auto) 0.1 % (0.0-4.3) 09/24/21 14:28 Baso % (Auto) 0.4 % (0.0-1.8) 09/24/21 14:28 Lymph # (Auto) 1.1 K/mm3 (1.2-5.4) L 09/24/21 14:28 [place] # (Auto) 1.4 K/mm3 (0.0-0.8) H 09/24/21 14:28 Eos # (Auto) 0.0 K/mm3 (0.0-0.4) 09/24/21 14:28 Baso # (Auto) 0.1 K/mm3 (0.0-0.1) 09/24/21 14:28 Seg Neutrophils % 78.5 % (40.0-70.0) H 09/24/21 14:28 Seg Neutrophils # 9.3 K/mm3 (1.8-7.7) H 09/24/21 14:28 PT 15.3 Sec. (12.2-14.9) H 09/24/21 14:28 INR 1.09 (0.87-1.13) 09/24/21 14:28 ABG pH 7.399 pH Units (7.350-7.450) 09/25/21 07:52 ABG pCO2 38.5 mm Hg 09/25/21 07:52 ABG pO2 56.0 mm Hg (80.0-90.0) L 09/25/21 07:52 ABG HCO3 23.2 mmol/L (20.0-26.0) 09/25/21 07:52 ABG O2 Saturation 91.4 % (95.0-99.0) L 09/25/21 07:52 ABG O2 Content 9.3 (0.0-44) 09/25/21 07:52 ABG Base Excess -1.4 mmol/L (-2.0-3.0) 09/25/21 07:52 ABG Hemoglobin 7.3 gm/dl (14.0-18.0) L 09/25/21 07:52 ABG Carboxyhemoglobin 1.7 % (0.0-5.0) 09/25/21 07:52 ABG Methemoglobin 0.5 % (0.0-1.5) 09/25/21 07:52 Oxyhemoglobin 89.5 % (95.0-99.0) L 09/25/21 07:52 FiO2 21 % 09/25/21 07:52 Sodium 134 mmol/L (137-145) L 09/24/21 16:12 Potassium 5.6 mmol/L (3.6-5.0) H 09/24/21 16:12 Chloride 89.9 mmol/L (98-107) L 09/24/21 16:12 Carbon Dioxide 20 mmol/L (22-30) L 09/24/21 16:12 Anion Gap 30 mmol/L 09/24/21 16:12 BUN 94 mg/dL (9-20) H 09/24/21 16:12 Creatinine 17.1 mg/dL (0.8-1.3) H 09/24/21 16:12 Estimated GFR 4 ml/min 09/24/21 16:12 BUN/Creatinine Ratio 5 % 09/24/21 16:12 Glucose 107 mg/dL (75-100) H 09/24/21 16:12 POC Glucose 124 mg/dL (70-105) H 09/24/21 19:04 Lactic Acid 1.40 mmol/L (0.7-2.0) 09/24/21 20:48 Calcium 10.2 mg/dL (8.4-10.2) 09/24/21 16:12 Magnesium 2.40 mg/dL (1.7-2.3) H 09/24/21 16:12 Total Bilirubin 0.50 mg/dL (0.1-1.2) 09/24/21 16:12 AST 15 units/L (5-40) 09/24/21 16:12 ALT 18 units/L (7-56) 09/24/21 16:12 Alkaline Phosphatase 125 units/L (35-129) 09/24/21 16:12 Total Creatine Kinase 63 units/L (55-170) 09/24/21 16:12 Troponin T 0.083 ng/mL (0.00-0.029) H 09/24/21 16:12 Total Protein 8.2 g/dL (6.3-8.2) 09/24/21 16:12 Albumin 3.7 g/dL (3.9-5) L 09/24/21 16:12 Albumin/Globulin Ratio 0.8 % 09/24/21 16:12 Triglycerides 169 mg/dL (2-149) H 09/24/21 16:12 Cholesterol 117 mg/dL (50-199) 09/24/21 16:12 LDL Cholesterol Direct 50 mg/dL (50-130) 09/24/21 16:12 HDL Cholesterol 23 mg/dL (40-59) L 09/24/21 16:12 Cholesterol/HDL Ratio 5.08 % 09/24/21 16:12 Lipase 14 units/L (13-60) 09/24/21 14:28 Microbiology: Microbiology 09/24/21 17:50 Peripheral/Venous Blood Culture - Preliminary 09/24/21 17:50 Peripheral/Venous Blood Culture - Preliminary Active Medications - Current Medications Current Medications: Generic Name Dose Route Start Last Admin Trade Name Freq PRN Reason Stop Dose Admin Acetaminophen 650 mg 09/24/21 19:31 09/25/21 11:10 Acetaminophen 325 Mg Tab PO 650 mg Q6H PRN Administration Pain MILD(1-3)/Fever >100.5/GARCIA Albuterol 2.5 mg 09/24/21 19:31 Albuterol 2.5 Mg/3 Ml Nebu IH Q3HRT PRN Shortness Of Breath Ascorbic Acid 500 mg 09/24/21 22:00 09/25/21 10:56 Ascorbic Acid 500 Mg Tab PO 500 mg BID ANTHONY Administration Cholecalciferol 1,000 unit 09/25/21 10:00 Cholecalciferol (Vit D3) 400 Unit Tab PO QDAY ANTHONY Heparin Sodium (Porcine) 5,000 unit 09/24/21 22:00 09/25/21 10:56 Heparin 5,000 Unit/1 Ml Vial SUB-Q 5,000 unit Q12HR ANTHONY Administration Hydromorphone HCl 0.25 mg 09/24/21 19:31 09/24/21 19:55 Hydromorphone 0.5 Mg/0.5 Ml Inj IV 0.25 mg Q4H PRN Administration Pain, Moderate (4-6) Hydromorphone HCl 0.5 mg 09/25/21 11:00 09/25/21 12:04 Hydromorphone 0.5 Mg/0.5 Ml Inj IV 0.5 mg Q4H PRN Administration Pain , Severe (7-10) Ceftriaxone Sodium 2 gm in 100 mls @ 200 mls/hr 09/24/21 20:00 09/24/21 20:11 Rocephin/Ns 2 Gm/100 Ml IV Not Given Q24H [facility] Protocol Azithromycin 500 mg in 250 mls @ 250 mls/hr 09/24/21 20:00 09/24/21 20:10 Zithromax/Ns IV Not Given Q24H [facility] Protocol Vancomycin HCl 1,500 mg/ 530 mls @ 333.333 mls/hr 09/25/21 13:00 Sodium Chloride IV 09/25/21 17:00 ONCE@1300 ANTHONY Methylprednisolone Sodium Succinate 40 mg 09/24/21 22:00 09/25/21 06:00 Methylprednisolone Sod Succinate 40 Mg/1 Ml Inj IV 40 mg Q8HR ANTHONY Administration Oxycodone/Acetaminophen 1 tab 09/24/21 19:31 Oxycodone /Acetaminophen 5-325mg Tab PO Q6H PRN Pain, Moderate (4-6) Sodium Chloride 10 ml 09/24/21 22:00 09/25/21 10:56 Sodium Chloride 0.9% 10 Ml Flush Syringe IV 10 ml BID ANTHONY Administration Sodium Chloride 10 ml 09/24/21 19:31 Sodium Chloride 0.9% 10 Ml Flush Syringe IV PRN PRN LINE FLUSH Zinc Sulfate 220 mg 09/24/21 22:00 09/25/21 10:56 Zinc Sulfate 220 Mg Cap PO 220 mg BID ANTHONY Administration
[2021-09-25 14:40] LABS: Hepatitis B Surface Antigen Non-Reactive (Negative); Hepatitis C Virus Antibody Non-Reactive (NonReactive)
--- NOTE | 2021-09-25 16:28 | Cat Scan Report ---
CT head/brain wo con INDICATION: Altered mental status. TECHNIQUE: Routine CT head without contrast. All CT scans at this location are performed using CT dos e reduction for ALARA by means of automated exposure control. COMPARISON: None. FINDINGS: BRAIN / INTRACRANIAL CONTENTS: No acute hemorrhage, mass effect, midline shift, or hydrocephalus. No appreciable acute large territorial or lacunar infarct. No chronic infarct or focal atrophy. Normal b rain volume and ventricular/sulcal size for age. Retained contrast in the vascular system from recent CT of the abdomen and pelvis noted. ORBITS: No significant abnormality of visualized orbits. SINUSES / MASTOIDS: No significant abnormality of visualized sinuses and mastoid air cells. ADDITIONAL FINDINGS: None. IMPRESSION: 1. No acute findings. Signer Name: Kal Woods MD Signed: 09/25/2021 4:22 PM Workstation Name: [id number]
[2021-09-25] MEDS ORDERED: hydrALAZINE 20 MG/1 ML INJ IV ONE (17:40)
[2021-09-25] MEDS: CHOLECALCIFEROL (VIT D3) 400 UNIT TAB PO SCH (17:51)
[2021-09-25] MEDS: cefTRIAXone/NS 2 GM/100 ML 2 GM/100 ML BAG IV SCH ×2 (20:15→23:56)
[2021-09-25] MEDS: AZITHROMYCIN/NS 500 MG/250 ML 500 MG/250 ML BAG IV SCH (20:16)
[2021-09-26] MEDS: HEPARIN 5,000 UNIT/1 ML VIAL SUB-Q SCH ×3 (00:24→22:39)
[2021-09-26] MEDS: AZITHROMYCIN/NS 500 MG/250 ML 500 MG/250 ML BAG IV SCH (00:30)
[2021-09-26] MEDS: hydrALAZINE 20 MG/1 ML INJ IV PRN ×2 (00:30→05:45)
[2021-09-26] MEDS: ONDANSETRON 4 MG/2 ML INJ IV PRN ×3 (01:17→19:36)
[2021-09-26 05:18] LABS: Hemoglobin 7.8 gm/dl (11.8-15.2); Red Blood Count 2.76 M/mm3 (3.65-5.03)
[2021-09-26 05:19] LABS: Hematocrit 23.2 % (35.5-45.6); Mean Corpuscular HGB Conc 34 % (32-34); Mean Corpuscular Volume 84 fl (84-94); Platelet Count 154 K/mm3 (140-440); Red Cell Distribution Width 17.1 % (13.2-15.2)
[2021-09-26 05:34] LABS: Calcium 9.5 mg/dL (8.4-10.2)
[2021-09-26] MEDS: methylPREDNISolone Sod Succinate 40 MG/1 ML INJ IV SCH (06:17)
--- NOTE | 2021-09-26 08:01 | Progress Note ---
Assessment and Plan Assessment and plan: 46 YO Male with ESRD on Home Dialysis, HUS presents to ED for evaluation. Patient is confused with diminished cognition at the time my evaluation is unable to provide history. Patient history taken from EMS staff, ED staff, as well as the patient's son who is at bedside during exam and interview. Patient sounds at the patient has been "under the weather". Over the past 3 days with persistent and worsening symptoms over the same timeframe. Patient signed acknowledges weakness, fatigue, shortness of breath, body aches, diminished sense of smell, diminished sense of taste. The patient awakened today from sleep at 1100 hrs. and complained of abdominal discomfort. Patient was also found to be confused. EMS was notified and upon arrival the patient was found to be in distress and subsequently transported to [facility] for further care and evaluation of the aforementioned symptoms. The patient was seen and evaluated in the emergency department. All lab and imaging studies reviewed. Patient was found to have a pulse oximetry of 88% on room air which is consistent with acute hypoxemic respiratory failure. Patient underwent chest x-ray and was found to have bilateral pneumonia complicated by sepsis. Patient admitted to [facility] and initiated on sepsis protocol as well as pneumonia protocol, in conjunction with coronavirus protocol. No reports of fever, chills, chest pain, palpitation, skin rash, recent ill contacts, or known exposure to COVID-19. No prior admission for review. No medication listed at time of admission for reconciliation. Advanced care planning conducted in ED. 09/25: Patient remains confused at this time. Work-up so far has been negative CT abdomen pelvis was negative except for small pleural effusion. Testicular ultrasound was reported negative. Still have not been able to speak to the family to obtain further information. Awaiting further cultures and work-up. We will obtain a CT head. We will obtain neurology evaluation if neuro status does not improve. Will reevaluate following HD. Patient at this time is tolerating bedside swallow evaluation so we will start on renal diet. 09/26: Awaiting Neurology eval, restart home meds, continue abx and follow cultures. Mental status showing some improvement but still intermittently confused. Stop IV steroids. Anemia showing some improvement without transfusion. Patient for another HD today. I discussed with the son extensively, patients last HD was on 09/20/21 before admission. Cultures growing staph aureus. Continue antibiotics await further instructions and adjustments by ID. He continues to complain of abdominal pain. Imaging studies and labs have been negative but today was noted to have green bile emesis. Will obtain abdominal ultrasound and also consult GI (1) Sepsis of unknown etiology Current Visit: Yes Status: Acute Qualifiers: Acute respiratory failure type: with hypoxia Plan to address problem: Sepsis protocol: Chest x-ray, CBC, CMP, urinalysis, IV antibiotic therapy, IV fluid resuscitation therapy, maintain mean arterial pressure greater than or equal to 65, serial lactic acid level, monitor fluid balance, IV pressor support as clinically indicated. (2) Acute hypoxemic respiratory failure Current Visit: Yes Status: Acute Plan to address problem: Chest x-ray, supplemental oxygen, pulse oximetry, nebulizer therapy, pulmonary toilet. Will consider high flow supplemental oxygen if patient is unable to maintain pulse oximetry on supplemental oxygen via nasal cannula. (3) Pneumonia Current Visit: Yes Status: Acute Plan to address problem: Pneumonia protocol: Chest x-ray, CBC, CMP, IV antibiotic therapy, IV fluid resuscitation therapy, nebulized therapy, blood culture. (4) Anemia of chronic disease Current Visit: Yes Status: Acute Plan to address problem: Nephrology team consulted. Will consider packed red cell transfusion with dialysis. (5) End stage renal disease Current Visit: Yes Status: Acute Plan to address problem: Nephrology team consulted in ED. Dialysis as per renal team. (6) Toxic metabolic encephalopathy Current Visit: Yes Status: Acute Plan to address problem: Supportive care, treat sepsis, BMP, repeat BMP in a.m., neurochecks Will obtain CT of the head (7) Suspected 2019 novel coronavirus infection Current Visit: Yes Status: Acute Plan to address problem: Coronavirus protocol: IV antibiotic therapy, IV steroid therapy, supplemental oxygen, pulse oximetry, chest x-ray, vitamin C therapy, vitamin D therapy, zinc therapy, prophylactic anticoagulation, infectious disease service consulted. (8) Herkalemia likely related to renal failure (9) DVT prophylaxis Current Visit: Yes Status: Acute Plan to address problem: SCD to bilateral lower extremities while in bed, prophylactic anticoagulation. (10) Advance care planning Current Visit: Yes Status: Acute Plan to address problem: Disease education data, care plan discussed, diagnoses discussed, prognosis discussed, patient is full code. Patient family knowledges understanding and agreement with care plan, +30 minutes. The high probability of a clinically significant, sudden or life threatening deterioration of the [multiple organs including renal] system(s) required my fu ll and direct attention, intervention and personal management. The aggregate critical care time was [35] minutes. This time is in addition to time spent performing reported procedures but includes the following: [x] Data Review and interpretation [x] Patient assessment and monitoring of vital signs [x] Documentation [x] Medication orders and management History Interval history: Patient seen and examine, remains confused otherwise no new complaints. Spoke to son extensively no prior history of confusional [place] history. Hospitalist Physical - Physical exam Narrative exam: VITAL SIGNS: Reviewed. GENERAL: The patient appears normally developed, Vital signs as documented. HEAD: No signs of head trauma. EYES: Pupils are equal. Extraocular motions intact. EARS: Hearing grossly intact. MOUTH: Oropharynx is normal. NECK: No adenopathy, no JVD. CHEST: Chest with clear breath sounds bilaterally. No wheezes, rales, or rhonchi. CARDIAC: Regular rate and rhythm. S1 and S2, without murmurs, gallops, or rubs. VASCULAR: No Edema. Peripheral pulses normal and equal in all extremities. ABDOMEN: Soft, non tender and non distended. No rebound or guarding, and no masses palpated. Bowel Sounds normal. MUSCULOSKELETAL: Good range of motion of all major joints. Extremities without clubbing, cyanosis or edema. NEUROLOGIC EXAM: Awake oriented to person and place. Follows some commands otherwise Dysphagia. PSYCHIATRIC: Flat affect SKIN: detail exam as documented in skin assessment - Constitutional Vitals: Temp Pulse Resp BP Pulse Ox 97.5 F L 64 13 154/98 98 09/26/21 02:07 09/26/21 06:15 09/26/21 06:15 09/26/21 06:15 09/26/21 06:15 General appearance: Present: mild distress HEART Score - HEART Score Troponin: Troponin T 0.083 ng/mL (0.00-0.029) H 09/24/21 16:12 Results - Labs CBC & Chem 7: 09/26/21 04:37 09/26/21 04:37 Labs: Laboratory Last Values WBC 11.0 K/mm3 (4.5-11.0) 09/26/21 04:37 RBC 2.76 M/mm3 (3.65-5.03) L 09/26/21 04:37 Hgb 7.8 gm/dl (11.8-15.2) L 09/26/21 04:37 Hct 23.2 % (35.5-45.6) L 09/26/21 04:37 MCV 84 fl (84-94) 09/26/21 04:37 MCH 28 pg (28-32) 09/26/21 04:37 MCHC 34 % (32-34) 09/26/21 04:37 RDW 17.1 % (13.2-15.2) H 09/26/21 04:37 Plt Count 154 K/mm3 (140-440) 09/26/21 04:37 Lymph % (Auto) 8.9 % (13.4-35.0) L 09/24/21 14:28 [place] % (Auto) 12.1 % (0.0-7.3) H 09/24/21 14:28 Eos % (Auto) 0.1 % (0.0-4.3) 09/24/21 14:28 Baso % (Auto) 0.4 % (0.0-1.8) 09/24/21 14:28 Lymph # (Auto) 1.1 K/mm3 (1.2-5.4) L 09/24/21 14:28 Dixon # (Auto) 1.4 K/mm3 (0.0-0.8) H 09/24/21 14:28 Eos # (Auto) 0.0 K/mm3 (0.0-0.4) 09/24/21 14:28 Baso # (Auto) 0.1 K/mm3 (0.0-0.1) 09/24/21 14:28 Seg Neutrophils % 78.5 % (40.0-70.0) H 09/24/21 14:28 Seg Neutrophils # 9.3 K/mm3 (1.8-7.7) H 09/24/21 14:28 PT 15.3 Sec. (12.2-14.9) H 09/24/21 14:28 INR 1.09 (0.87-1.13) 09/24/21 14:28 ABG pH 7.399 pH Units (7.350-7.450) 09/25/21 07:52 ABG pCO2 38.5 mm Hg 09/25/21 07:52 ABG pO2 56.0 mm Hg (80.0-90.0) L 09/25/21 07:52 ABG HCO3 23.2 mmol/L (20.0-26.0) 09/25/21 07:52 ABG O2 Saturation 91.4 % (95.0-99.0) L 09/25/21 07:52 ABG O2 Content 9.3 (0.0-44) 09/25/21 07:52 ABG Base Excess -1.4 mmol/L (-2.0-3.0) 09/25/21 07:52 ABG Hemoglobin 7.3 gm/dl (14.0-18.0) L 09/25/21 07:52 ABG Carboxyhemoglobin 1.7 % (0.0-5.0) 09/25/21 07:52 ABG Methemoglobin 0.5 % (0.0-1.5) 09/25/21 07:52 Oxyhemoglobin 89.5 % (95.0-99.0) L 09/25/21 07:52 FiO2 21 % 09/25/21 07:52 Sodium 138 mmol/L (137-145) 09/26/21 04:37 Potassium 5.1 mmol/L (3.6-5.0) H 09/26/21 04:37 Chloride 96.3 mmol/L (98-107) L 09/26/21 04:37 Carbon Dioxide 27 mmol/L (22-30) D 09/26/21 04:37 Anion Gap 20 mmol/L 09/26/21 04:37 BUN 51 mg/dL (9-20) H 09/26/21 04:37 Creatinine 9.5 mg/dL (0.8-1.3) H 09/26/21 04:37 Estimated GFR 7 ml/min 09/26/21 04:37 BUN/Creatinine Ratio 5 % 09/26/21 04:37 Glucose 176 mg/dL (75-100) H 09/26/21 04:37 POC Glucose 124 mg/dL (70-105) H 09/24/21 19:04 Lactic Acid 1.40 mmol/L (0.7-2.0) 09/24/21 20:48 Calcium 9.5 mg/dL (8.4-10.2) 09/26/21 04:37 Phosphorus 6.20 mg/dL (2.5-4.5) H 09/26/21 04:37 Magnesium 2.40 mg/dL (1.7-2.3) H 09/24/21 16:12 Total Bilirubin 0.50 mg/dL (0.1-1.2) 09/24/21 16:12 AST 15 units/L (5-40) 09/24/21 16:12 ALT 18 units/L (7-56) 09/24/21 16:12 Alkaline Phosphatase 125 units/L (35-129) 09/24/21 16:12 Total Creatine Kinase 63 units/L (55-170) 09/24/21 16:12 Troponin T 0.083 ng/mL (0.00-0.029) H 09/24/21 16:12 Total Protein 8.2 g/dL (6.3-8.2) 09/24/21 16:12 Albumin 3.7 g/dL (3.9-5) L 09/24/21 16:12 Albumin/Globulin Ratio 0.8 % 09/24/21 16:12 Triglycerides 169 mg/dL (2-149) H 09/24/21 16:12 Cholesterol 117 mg/dL (50-199) 09/24/21 16:12 LDL Cholesterol Direct 50 mg/dL (50-130) 09/24/21 16:12 HDL Cholesterol 23 mg/dL (40-59) L 09/24/21 16:12 Cholesterol/HDL Ratio 5.08 % 09/24/21 16:12 Lipase 14 units/L (13-60) 09/24/21 14:28 Coronavirus (PCR) Negative (Negative) 09/25/21 Unknown Hepatitis A IgM Ab Non-reactive (NonReactive) 09/25/21 13:32 Hep Bs Antigen Non-reactive (Negative) 09/25/21 13:32 Hep B Core IgM Ab Non-reactive (NonReactive) 09/25/21 13:32 Hepatitis C Antibody Non-reactive (NonReactive) 09/25/21 13:32 Microbiology: Microbiology 09/24/21 17:50 Peripheral/Venous Blood Culture - Preliminary 09/24/21 17:50 Peripheral/Venous Blood Culture - Preliminary Active Medications - Current Medications Current Medications: Generic Name Dose Route Start Last Admin Trade Name Freq PRN Reason Stop Dose Admin Acetaminophen 650 mg 09/24/21 19:31 09/25/21 11:10 Acetaminophen 325 Mg Tab PO 650 mg Q6H PRN Administration Pain MILD(1-3)/Fever >100.5/GARCIA Albuterol 2.5 mg 09/24/21 19:31 Albuterol 2.5 Mg/3 Ml Nebu IH Q3HRT PRN Shortness Of Breath Ascorbic Acid 500 mg 09/24/21 22:00 09/25/21 23:56 Ascorbic Acid 500 Mg Tab PO 500 mg BID ANTHONY Administration Cholecalciferol 1,000 unit 09/25/21 10:00 09/25/21 17:51 Cholecalciferol (Vit D3) 400 Unit Tab PO 1,000 unit QDAY ANTHONY Administration Cyclobenzaprine HCl 10 mg 09/26/21 07:57 Cyclobenzaprine 10 Mg Tab PO QHS PRN Sleep Heparin Sodium (Porcine) 5,000 unit 09/24/21 22:00 09/26/21 00:24 Heparin 5,000 Unit/1 Ml Vial SUB-Q 5,000 unit Q12HR ANTHONY Administration Hydralazine HCl 10 mg 09/26/21 00:19 09/26/21 05:45 Hydralazine 20 Mg/1 Ml Inj IV 10 mg Q4HR PRN Administration Increased Blood Pressure Hydromorphone HCl 0.25 mg 09/24/21 19:31 09/24/21 19:55 Hydromorphone 0.5 Mg/0.5 Ml Inj IV 0.25 mg Q4H PRN Administration Pain, Moderate (4-6) Hydromorphone HCl 0.5 mg 09/25/21 11:00 09/25/21 23:57 Hydromorphone 0.5 Mg/0.5 Ml Inj IV 0.5 mg Q4H PRN Administration Pain , Severe (7-10) Ceftriaxone Sodium 2 gm in 100 mls @ 200 mls/hr 09/24/21 20:00 09/25/21 23:56 Rocephin/Ns 2 Gm/100 Ml IV 200 mls/hr Q24H ANTHONY Administration Protocol Azithromycin 500 mg in 250 mls @ 250 mls/hr 09/24/21 20:00 09/26/21 00:30 Zithromax/Ns IV 250 mls/hr Q24H ANTHONY Administration Protocol Miscellaneous Medication 90 mg 09/26/21 10:00 Nifedipine [Nifedipine Er] PO QDAY ANTHONY Miscellaneous Medication 25 mg 09/26/21 10:00 Carvedilol PO BID ANTHONY Ondansetron HCl 4 mg 09/26/21 01:03 09/26/21 01:17 Ondansetron 4 Mg/2 Ml Inj IV 4 mg Q6H PRN Administration Nausea And Vomiting Oxycodone/Acetaminophen 1 tab 09/24/21 19:31 Oxycodone /Acetaminophen 5-325mg Tab PO Q6H PRN Pain, Moderate (4-6) Sevelamer Carbonate 800 mg 09/26/21 08:00 Sevelamer Carbonate 800 Mg Tab PO TIDWM ANTHONY Sodium Chloride 10 ml 09/24/21 22:00 09/25/21 23:57 Sodium Chloride 0.9% 10 Ml Flush Syringe IV 10 ml BID ANTHONY Administration Sodium Chloride 10 ml 09/24/21 19:31 Sodium Chloride 0.9% 10 Ml Flush Syringe IV PRN PRN LINE FLUSH Zinc Sulfate 220 mg 09/24/21 22:00 09/25/21 23:57 Zinc Sulfate 220 Mg Cap PO 220 mg BID ANTHONY Administration Nutrition/Malnutrition Assess - Dietary Evaluation Nutrition/Malnutrition Findings: Nutrition Notes Start: 09/25/21 17:29 Freq: Status: Active Protocol: Document 09/25/21 17:29 EVELIO (Rec: 09/25/21 17:52 EVELIO [id number]) Nutrition Notes Need for Assessment generated from: project planner Initial or Follow up Assessment Current Diagnosis CKD (stage V CKD),Sepsis Other Pertinent Diagnosis ESRD+HD, Pneumonia, Anemia, Metabolic Encephalopathy, COVID-19 pui, ... Current Diet Renal Diet (since D 09/25). Labs/Tests 09/24: Na 134, K 5.6, Cl 98.9, CO2 20, BUN 94, Crea 17.1, Glu 107, Mg 2.4. Pertinent Medications 09/25: Vit C, Vit D3, ZnSO4, others nutritionally unremarkable. 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 Weight Status Overweight Subjective/Other Information RD consult for skin risk assessment. No reports available on Pt's PO intake of meals at the time , will assess at F/U. Pt is on Nasal Cannula, O2 saturation @ 100%, according to Physical Assesment History notes. Pt has missing teeth, according to Physical Assesment History notes. Pt presents diarrhea, according to Physical Assesment History notes. Pt passed bedside Swallow evaluation on 09/25, according to Progress notes. Pt shows no signs of concern for skin risk at the time, according to Physical Assesment History notes. Percent of energy/protein needs met: Prescribed Renal Diet provides for energy/protein needs (2, 072 Kcal/77 g) during LOS. Burn Absent Trauma Absent GI Symptoms Diarrhea Food Allergy No Skin Integrity/Comment Assessment WNL. Minimum of two criteria No #1 Nutrition Diagnosis No nutrition diagnosis at this time Comments: Will assess Pt's PO intake of meals at F/U. Is patient on ventilator? No Is Patient Ambulatory and/or Out of Bed Yes REE-([place]ambulatory/OOB) [ 2422.784 [id number]] Kcal/Kg value to use for calculation 24 Approximate Energy Requirements Using 2232 kcal/Kg Calculation Used for Recommendations Kcal/kg Additional Notes Protein: >1.2 g/Kg ABW; >112 g /day. Fluids: 1 ml/Kcal, or as per MD. Nutrition Intervention Change Diet Order: Continue Renal Diet. Follow-Up By: 10/02/21 Additional Comments Continue monitoring food tolerance, %PO intake of meals , and BM.
--- NOTE | 2021-09-26 08:32 | Consultation ---
History of Present Illness Consult date: 09/26/21 Reason for Consult: Encephalopathy,Pneumonia,ESRD on dialysis,COVID negative History of present illness: He has been under the weather for the past few days History of present illness: 46 YO Male with ESRD on Home Dialysis, HUS presents to ED for evaluation. Patient is confused with diminished cognition at the time my evaluation is unable to provide history. Patient history taken from EMS staff, ED staff, as well as the patient's son who is at bedside during exam and interview. Patient sounds at the patient has been "under the weather". Over the past 3 days with persistent and worsening symptoms over the same timeframe. Patient signed acknowledges weakness, fatigue, shortness of breath, body aches, diminished sense of smell, diminished sense of taste. The patient awakened today from sleep at 1100 hrs. and complained of abdominal discomfort. Patient was also found to be confused. EMS was notified and upon arrival the patient was found to be in distress and subsequently transported to [facility] for further care and evaluation of the aforementioned symptoms. The patient was seen and evaluated in the emergency department. All lab and imaging studies reviewed. Patient was found to have a pulse oximetry of 88% on room air which is consistent with acute hypoxemic respiratory failure. Patient underwent chest x-ray and was found to have bilateral pneumonia complicated by sepsis. Patient admitted to [facility] and initiated on sepsis protocol as well as pneumonia protocol, in conjunction with coronavirus protocol. No reports of fever, chills, chest pain, palpitation, skin rash, recent ill contacts, or known exposure to COVID-19. No prior admission for review. No medication listed at time of admission for reconciliation. Advanced care planning conducted in ED. Neurology consulted for evaluation of change in mentation today he is alert respond to commands [id number] complains of nausea and abdominal pain Blood culture is positive Grm positive cocci Ct brain is unremarkable BUN/Cr#51/9.5 on dialysis less than a year as per pt. Past History Past Medical History: ESRD, other (See HPI) Past Surgical History: Other (Dialysis access, renal transplant) Social history: single. denies: smoking, alcohol abuse, prescription drug abuse Family history: no significant family history Medications and Allergies Allergies Allergy/AdvReac Type Severity Reaction Status Date / Time No Known Allergies Allergy Unverified 09/24/21 12:37 Active Meds: Active Medications Calcium Gluconate 1,000 mg/ (Sodium Chloride) 110 mls @ 660 mls/hr IV ONCE ONE Stop: 09/24/21 17:37 Review of Systems ROS unobtainable: due to mental status Past History Past Medical History: ESRD, other (See HPI) Past Surgical History: Other (Dialysis access, renal transplant) Social history: single. denies: smoking, alcohol abuse, prescription drug abuse Family history: diabetes Medications and Allergies Allergies Allergy/AdvReac Type Severity Reaction Status Date / Time No Known Allergies Allergy Unverified 09/24/21 12:37 Home Medications Medication Instructions Recorded Confirmed Last Taken Type Acetaminophen with Codeine 1 each PO Q8H PRN 09/25/21 09/25/21 09/16/21 21:00 H istory [Acetaminophen-Cod #3 Tablet] Cyclobenzaprine [Flexeril] 10 mg PO QHS PRN 09/25/21 09/25/21 09/23/21 21:00 History NIFEdipine [Nifedipine ER] 90 mg PO QDAY 09/25/21 09/25/21 09/23/21 09:00 History Sevelamer Carbonate [Renvela] 800 mg PO TIDWM 09/25/21 09/25/21 09/24/21 17:00 History Zolpidem Tartrate [Zolpidem 12.5 mg PO PRN PRN 09/25/21 09/25/21 09/23/21 21:00 History Tartrate ER] carvediloL 25 mg PO BID 09/25/21 09/25/21 09/23/21 21:00 History Active Meds: Active Medications Acetaminophen (Acetaminophen 325 Mg Tab) 650 mg PO Q6H PRN PRN Reason: Pain MILD(1-3)/Fever >100.5/GARCIA Last Admin: 09/25/21 11:10 Dose: 650 mg Albuterol (Albuterol 2.5 Mg/3 Ml Nebu) 2.5 mg IH Q3HRT PRN PRN Reason: Shortness Of Breath Ascorbic Acid (Ascorbic Acid 500 Mg Tab) 500 mg PO BID [facility] Last Admin: 09/25/21 23:56 Dose: 500 mg Carvedilol (Carvedilol 25 Mg Tab) 25 mg PO Q12HR ANTHONY Cholecalciferol (Cholecalciferol (Vit D3) 400 Unit Tab) 1,000 unit PO QDAY [facility] Last Admin: 09/25/21 17:51 Dose: 1,000 unit Cyclobenzaprine HCl (Cyclobenzaprine 10 Mg Tab) 10 mg PO QHS PRN PRN Reason: Sleep Heparin Sodium (Porcine) (Heparin 5,000 Unit/1 Ml Vial) 5,000 unit SUB-Q Q12HR [facility] Last Admin: 09/26/21 00:24 Dose: 5,000 unit Hydralazine HCl (Hydralazine 20 Mg/1 Ml Inj) 10 mg IV Q4HR PRN PRN Reason: Increased Blood Pressure Last Admin: 09/26/21 05:45 Dose: 10 mg Hydromorphone HCl (Hydromorphone 0.5 Mg/0.5 Ml Inj) 0.25 mg IV Q4H PRN PRN Reason: Pain, Moderate (4-6) Last Admin: 09/24/21 19:55 Dose: 0.25 mg Hydromorphone HCl (Hydromorphone 0.5 Mg/0.5 Ml Inj) 0.5 mg IV Q4H PRN PRN Reason: Pain , Severe (7-10) Last Admin: 09/25/21 23:57 Dose: 0.5 mg Ceftriaxone Sodium (Rocephin/Ns 2 Gm/100 Ml) 2 gm in 100 mls @ 200 mls/hr IV Q24H [facility]; Protocol Last Admin: 09/25/21 23:56 Dose: 200 mls/hr Azithromycin (Zithromax/Ns) 500 mg in 250 mls @ 250 mls/hr IV Q24H [facility]; Protocol Last Admin: 09/26/21 00:30 Dose: 250 mls/hr Nifedipine (Nifedipine Xl 90 Mg Tab) 90 mg PO QDAY [facility] Ondansetron HCl (Ondansetron 4 Mg/2 Ml Inj) 4 mg IV Q6H PRN PRN Reason: Nausea And Vomiting Last Admin: 09/26/21 01:17 Dose: 4 mg Oxycodone/Acetaminophen (Oxycodone /Acetaminophen 5-325mg Tab) 1 tab PO Q6H PRN PRN Reason: Pain, Moderate (4-6) Sevelamer Carbonate (Sevelamer Carbonate 800 Mg Tab) 800 mg PO TIDWM [facility] Sodium Chloride (Sodium Chloride 0.9% 10 Ml Flush Syringe) 10 ml IV BID [facility] Last Admin: 09/25/21 23:57 Dose: 10 ml Sodium Chloride (Sodium Chloride 0.9% 10 Ml Flush Syringe) 10 ml IV PRN PRN PRN Reason: LINE FLUSH Zinc Sulfate (Zinc Sulfate 220 Mg Cap) 220 mg PO BID [facility] Last Admin: 09/25/21 23:57 Dose: 220 mg Physical Examination - Vital Signs Vital Signs: Vital Signs Temp Pulse Resp BP Pulse Ox 98.6 F 120 H 16 183/117 94 09/24/21 12:33 09/24/21 12:33 09/24/21 12:33 09/24/21 12:33 09/24/21 12:33 - Constitutional General appearance: uncomfortable - EENT EENT: Present: PERRL, mucous membranes moist - Respiratory Respiratory: Present: lungs clear, rhonchi - Cardiovascular Cardiovascular: Present: regular rate, normal S1, normal S2 Extremities: Present: no peripheral edema bilatateraly, no clubbing, cyanosis - Gastrointestinal Gastrointestinal: Present: normoactive bowel sounds - Integumentary Integumentary: Present: normal - Neurologic Cranial nerve examination: PERRL, EOMI, intact Speech examination: intact Sensorimotor examination: intact Detailed motor examination: grossly full strength in - Psychiatric Psychiatric: Present: other (he is alert oriented to place and date knows p resident name ,his birthday and home address) - Level of Consciousness 1a. Level of Consciousness: alert/keenly responsive - LOC Questions 1b. LOC Questions: answers both correctly - LOC Command 1c. LOC Commands: performs tasks correctly - Best Gaze 2. Best Gaze: normal - Visual 3. Visual: no visual loss - Facial Palsy 4. Facial Palsy: normal symmetrical movement - Motor Arm 5a. Motor Arm Left: no drift 5b. Motor Arm Right: no drift - Motor Leg 6a. Motor Leg Left: no drift 6b. Motor Leg Right: no drift - Limb Ataxia 7. Limb Ataxia: absent - Sensory 8. Sensory: normal - Best Language 9. Best Language: no aphasia - Dysarthria 10. Dysarthria: normal - Extinction and Inattention 11. Extinction/Inattention: no abnormality - Scoring Total Score: 0 Stroke Severity: No Stroke Symptoms Results - Laboratory Findings CBC and BMP: 09/26/21 04:37 09/26/21 04:37 Abnormal Lab Findings: Abnormal Labs 09/24/21 09/24/21 09/24/21 14:28 14:28 14:28 WBC 11.9 H RBC 2.47 L Hgb 6.9 L Hct 21.1 L RDW 17.1 H Lymph % (Auto) 8.9 L Bay % (Auto) 12.1 H Lymph # (Auto) 1.1 L Bay # (Auto) 1.4 H Seg Neutrophils % 78.5 H Seg Neutrophils # 9.3 H PT 15.3 H ABG pO2 ABG O2 Saturation ABG Hemoglobin Oxyhemoglobin Sodium 134 L Potassium 5.4 H Chloride 91.9 L Carbon Dioxide BUN 95 H Creatinine 15.8 H Glucose POC Glucose Phosphorus Magnesium Troponin T Albumin Triglycerides HDL Cholesterol 09/24/21 09/24/21 09/25/21 16:12 19:04 07:52 WBC RBC Hgb Hct RDW Lymph % (Auto) Bay % (Auto) Lymph # (Auto) Bay # (Auto) Seg Neutrophils % Seg Neutrophils # PT ABG pO2 56.0 L ABG O2 Saturation 91.4 L ABG Hemoglobin 7.3 L Oxyhemoglobin 89.5 L Sodium 134 L Potassium 5.6 H Chloride 89.9 L Carbon Dioxide 20 L BUN 94 H Creatinine 17.1 H Glucose 107 H POC Glucose 124 H Phosphorus Magnesium 2.40 H Troponin T 0.083 H Albumin 3.7 L Triglycerides 169 H HDL Cholesterol 23 L 09/26/21 09/26/21 04:37 04:37 WBC RBC 2.76 L Hgb 7.8 L Hct 23.2 L RDW 17.1 H Lymph % (Auto) Bay % (Auto) Lymph # (Auto) Bay # (Auto) Seg Neutrophils % Seg Neutrophils # PT ABG pO2 ABG O2 Saturation ABG Hemoglobin Oxyhemoglobin Sodium Potassium 5.1 H Chloride 96.3 L Carbon Dioxide BUN 51 H Creatinine 9.5 H Glucose 176 H POC Glucose Phosphorus 6.20 H Magnesium Troponin T Albumin Triglycerides HDL Cholesterol Assessment and Plan Assessment and Plan 46 YO Male with ESRD on Home Dialysis, HUS presents to ED for evaluation. Patient is confused with diminished cognition at the time my evaluation is unable to provide history. Patient history taken from EMS staff, ED staff, as well as the patient's son who is at bedside during exam and interview. Patient sounds at the patient has been "under the weather". Over the past 3 days with persistent and worsening symptoms over the same timeframe. Patient signed acknowledges weakness, fatigue, shortness of breath, body aches, diminished sense of smell, diminished sense of taste. The patient awakened today from sleep at 1100 hrs. and complained of abdominal discomfort. Patient was also found to be confused. - Patient Problems # Acute Encephalopathy -resolved today -mostly related to underlying infection and or ESRD -CT brain is unremarkable -Cxy is remarkable for possible pneumonia bilateral -COVID-19 Is negative -Supportive care, treat sepsis, BMP, repeat BMP in a.m., neurochecks # Sepsis -Sepsis protocol: Chest x-ray, CBC, CMP, urinalysis, IV antibiotic therapy, IV fluid resuscitation therapy, maintain mean arterial pressure greater than or equal to 65, serial lactic acid level, monitor fluid balance, IV pressor support as clinically indicated. # Acute hypoxemic respiratory failure -Chest x-ray, supplemental oxygen, pulse oximetry, nebulizer therapy, pulmonary toilet. Will consider high flow supplemental oxygen if patient is unable to maintain pulse oximetry on supplemental oxygen via nasal cannula. # Pneumonia -Pneumonia protocol: Chest x-ray, CBC, CMP, IV antibiotic therapy, IV fluid resuscitation therapy, nebulized therapy, blood culture. # Anemia of chronic disease -Nephrology team consulted. Will consider packed red cell transfusion with dialysis. # End stage renal disease -Nephrology team consulted in ED. Dialysis as per renal team. # DVT prophylaxis -SCD to bilateral lower extremities while in bed, prophylactic anticoagulation. PLAN 1-Treat underlying infection 2- Hemodialysis 3- Correct elctrolytes abnormalities 4- DVT prophylaxis will follow
[2021-09-26] MEDS: SEVELAMER CARBONATE 800 MG TAB PO SCH ×3 (08:43→17:45)
[2021-09-26] MEDS ORDERED: NON-FORMULARY EACH (Nifedipine [Nifedipine Er] 90 MG Tablet.Er) PO SCH (10:00)
[2021-09-26] MEDS ORDERED: NON-FORMULARY EACH (Carvedilol 25 MG) PO SCH (10:00)
[2021-09-26] MEDS: NIFEdipine XL 90 MG TAB PO SCH (10:01)
[2021-09-26] MEDS: carvediloL 25 MG TAB PO SCH ×2 (10:01→22:38)
[2021-09-26] MEDS: ASCORBIC ACID 500 MG TAB PO SCH ×2 (10:01→22:38)
[2021-09-26] MEDS: CHOLECALCIFEROL (VIT D3) 400 UNIT TAB PO SCH (10:01)
[2021-09-26] MEDS: ZINC SULFATE 220 MG CAP PO SCH ×2 (10:01→22:38)
--- NOTE | 2021-09-26 11:04 | Gastroenterology Consultation ---
History of Present Illness - Reason for Consult Consult date: 09/26/21 - History of Present Illness Mr. Colby is a 46 y/o M with ESRD on HD who presented to the ED via EMS for "feeling under the weather" for the past few days. Upon workup pt was found to to have bilateral pneumonia, and sepsis (started on sepsis protocol). GI has been consulted for abdominal pain. On exam pt was unable to tell me why he is in the hospital. He denies abdominal pain and stated that he has x1 episode of "green" vomit this a.m. On physical exam, pt is non-tender, non-distended and has a soft abdomen. CT A/P 09/24 revealed small, bilateral pleural effusion and no other acute findings in abdomen/pelvis. Past History Past Medical History: ESRD, other (See HPI) Past Surgical History: Other (Dialysis access, renal transplant) Social history: single. denies: smoking, alcohol abuse, prescription drug abuse Family history: diabetes Medications and Allergies Allergies Allergy/AdvReac Type Severity Reaction Status Date / Time No Known Allergies Allergy Unverified 09/24/21 12:37 Home Medications Medication Instructions Recorded Confirmed Last Taken Type Acetaminophen with Codeine 1 each PO Q8H PRN 09/25/21 09/25/21 09/16/21 21:00 History [Acetaminophen-Cod #3 Tablet] Cyclobenzaprine [Flexeril] 10 mg PO QHS PRN 09/25/21 09/25/21 09/23/21 21:00 History NIFEdipine [Nifedipine ER] 90 mg PO QDAY 09/25/21 09/25/21 09/23/21 09:00 History Sevelamer Carbonate [Renvela] 800 mg PO TIDWM 09/25/21 09/25/21 09/24/21 17:00 History Zolpidem Tartrate [Zolpidem 12.5 mg PO PRN PRN 09/25/21 09/25/21 09/23/21 21:00 History Tartrate ER] carvediloL 25 mg PO BID 09/25/21 09/25/21 09/23/21 21:00 History Active Meds: Active Medications Acetaminophen (Acetaminophen 325 Mg Tab) 650 mg PO Q6H PRN PRN Reason: Pain MILD(1-3)/Fever >100.5/GARCIA Last Admin: 09/25/21 11:10 Dose: 650 mg Albuterol (Albuterol 2.5 Mg/3 Ml Nebu) 2.5 mg IH Q3HRT PRN PRN Reason: Shortness Of Breath Ascorbic Acid (Ascorbic Acid 500 Mg Tab) 500 mg PO BID [facility] Last Admin: 09/26/21 10:01 Dose: 500 mg Azithromycin (Azithromycin 250 Mg Tab) 500 mg PO Q24H [facility]; Protocol Stop: 09/29/21 20:01 Carvedilol (Carvedilol 25 Mg Tab) 25 mg PO Q12HR [facility] Last Admin: 09/26/21 10:01 Dose: 25 mg Cholecalciferol (Cholecalciferol (Vit D3) 400 Unit Tab) 1,000 unit PO QDAY [facility] Last Admin: 09/26/21 10:01 Dose: 1,000 unit Cyclobenzaprine HCl (Cyclobenzaprine 10 Mg Tab) 10 mg PO QHS PRN PRN Reason: Sleep Heparin Sodium (Porcine) (Heparin 5,000 Unit/1 Ml Vial) 5,000 unit SUB-Q Q12HR [facility] Last Admin: 09/26/21 10:01 Dose: 5,000 unit Hydralazine HCl (Hydralazine 20 Mg/1 Ml Inj) 10 mg IV Q4HR PRN PRN Reason: Increased Blood Pressure Last Admin: 09/26/21 05:45 Dose: 10 mg Hydralazine HCl (Hydralazine 25 Mg Tab) 50 mg PO Q8HR ANTHONY Hydromorphone HCl (Hydromorphone 0.5 Mg/0.5 Ml Inj) 0.25 mg IV Q4H PRN PRN Reason: Pain, Moderate (4-6) Last Admin: 09/24/21 19:55 Dose: 0.25 mg Hydromorphone HCl (Hydromorphone 0.5 Mg/0.5 Ml Inj) 0.5 mg IV Q4H PRN PRN Reason: Pain , Severe (7-10) Last Admin: 09/25/21 23:57 Dose: 0.5 mg Ceftriaxone Sodium (Rocephin/Ns 2 Gm/100 Ml) 2 gm in 100 mls @ 200 mls/hr IV Q24H [facility]; Protocol Last Admin: 09/25/21 23:56 Dose: 200 mls/hr Nifedipine (Nifedipine Xl 90 Mg Tab) 90 mg PO QDAY [facility] Last Admin: 09/26/21 10:01 Dose: 90 mg Ondansetron HCl (Ondansetron 4 Mg/2 Ml Inj) 4 mg IV Q6H PRN PRN Reason: Nausea And Vomiting Last Admin: 09/26/21 08:43 Dose: 4 mg Oxycodone/Acetaminophen (Oxycodone /Acetaminophen 5-325mg Tab) 1 tab PO Q6H PRN PRN Reason: Pain, Moderate (4-6) Sevelamer Carbonate (Sevelamer Carbonate 800 Mg Tab) 800 mg PO TIDWM [facility] Last Admin: 09/26/21 08:43 Dose: 800 mg Sodium Chloride (Sodium Chloride 0.9% 10 Ml Flush Syringe) 10 ml IV BID [facility] Last Admin: 09/26/21 10:00 Dose: 10 ml Sodium Chloride (Sodium Chloride 0.9% 10 Ml Flush Syringe) 10 ml IV PRN PRN PRN Reason: LINE FLUSH Zinc Sulfate (Zinc Sulfate 220 Mg Cap) 220 mg PO BID [facility] Last Admin: 09/26/21 10:01 Dose: 220 mg Review of Systems - Review of Systems Gastrointestinal: vomiting Exam - Constitutional Vital Signs: Temp Pulse Resp BP Pulse Ox 97.5 F L 86 18 178/119 100 09/26/21 09:15 09/26/21 11:00 09/26/21 10:00 09/26/21 11:00 09/26/21 10:00 - Gastrointestinal General gastrointestinal: Present: soft, non-tender, non-distended - Labs CBC & Chem 7: 09/26/21 04:37 09/26/21 04:37 Lab Results: Laboratory Results - last 24 hr 09/25/21 09/25/21 09/26/21 13:32 Unknown 04:37 WBC RBC Hgb Hct MCV MCH MCHC RDW Plt Count Sodium 138 Potassium 5.1 H Chloride 96.3 L Carbon Dioxide 27 D Anion Gap 20 BUN 51 H Creatinine 9.5 H Estimated GFR 7 BUN/Creatinine Ratio 5 Glucose 176 H Calcium 9.5 Phosphorus 6.20 H Random Vancomycin Coronavirus (PCR) Negative Hepatitis A IgM Ab Non-reactive Hep Bs Antigen Non-reactive Hep B Core IgM Ab Non-reactive Hepatitis C Antibody Non-reactive 09/26/21 09/26/21 04:37 09:40 WBC 11.0 RBC 2.76 L Hgb 7.8 L Hct 23.2 L MCV 84 MCH 28 MCHC 34 RDW 17.1 H Plt Count 154 Sodium Potassium Chloride Carbon Dioxide Anion Gap BUN Creatinine Estimated GFR BUN/Creatinine Ratio Glucose Calcium Phosphorus Random Vancomycin 16.0 Coronavirus (PCR) Hepatitis A IgM Ab Hep Bs Antigen Hep B Core IgM Ab Hepatitis C Antibody Assessment and Plan 1. Abdominal pain -resolved as pt denies current abdominal pain -CT A/P 09/24: small pleural effusions, no other acute a/p findings 2. Anemia -No signs of overt upper/lower GI bleeding -H/H 7.8, 23.2 -recommend GI follow-up outpatient -recommend iron studies -GI will sign off.
--- NOTE | 2021-09-26 12:19 | Progress Note ---
Assessment and Plan Assessment: ESRD on hemodialysis Hypertension AMS Sepsis Anemia Hyperkalemia Hyperphosphatemia Plan: S/P Hemodialysis yesterday. Hemodialysis again today for UF and clearance. Will place on T,T,S schedule Anemia- Epogen 20,000 units with HD today Has left AVG to left forearm Hyperphosphatemia- Start Renvela 1 tab TID with meals Fluid restriction of 1 liter per day Low potassium diet Renally dose medications Strict I/O's daily Assess dialysis needs daily Plan of care reviewed by Dr. Villegas Subjective Date of service: 09/26/21 Principal diagnosis: ESRD Interval history: Patient seen lying in bed with cellphone to ear. Objective - Vital Signs Vital signs: Vital Signs - 12hr 09/26/21 09/26/21 09/26/21 00:30 01:00 01:30 Temperature Pulse Rate 61 90 100 H Pulse Rate [ From Monitor] Respiratory 16 17 16 Rate Blood Pressure 181/110 172/119 176/128 O2 Sat by Pulse 100 98 Oximetry O2 Sat by Pulse Oximetry [ Bilateral] 09/26/21 09/26/21 09/26/21 02:00 02:07 02:30 Temperature 97.5 F L Pulse Rate 91 H 77 Pulse Rate [ From Monitor] Respiratory 15 13 Rate Blood Pressure 173/122 180/118 O2 Sat by Pulse 100 99 Oximetry O2 Sat by Pulse Oximetry [ Bilateral] 09/26/21 09/26/21 09/26/21 02:45 03:00 03:15 Temperature Pulse Rate 81 74 78 Pulse Rate [ From Monitor] Respiratory 12 12 12 Rate Blood Pressure 179/124 171/118 177/122 O2 Sat by Pulse 98 100 97 Oximetry O2 Sat by Pulse Oximetry [ Bilateral] 09/26/21 09/26/21 09/26/21 03:30 03:45 04:00 Temperature Pulse Rate 73 72 74 Pulse Rate [ From Monitor] Respiratory 10 L 12 12 Rate Blood Pressure 166/105 156/108 155/104 O2 Sat by Pulse 97 98 95 Oximetry O2 Sat by Pulse Oximetry [ Bilateral] 09/26/21 09/26/21 09/26/21 04:15 04:30 04:45 Temperature Pulse Rate 72 71 75 Pulse Rate [ From Monitor] Respiratory 12 13 18 Rate Blood Pressure 151/100 150/100 166/106 O2 Sat by Pulse 96 97 97 Oximetry O2 Sat by Pulse Oximetry [ Bilateral] 09/26/21 09/26/21 09/26/21 05:00 05:15 05:30 Temperature Pulse Rate 64 69 65 Pulse Rate [ 64 From Monitor] Respiratory 13 15 12 Rate Blood Pressure 159/99 167/104 160/98 O2 Sat by Pulse 99 99 99 Oximetry O2 Sat by Pulse Oximetry [ Bilateral] 09/26/21 09/26/21 09/26/21 05:45 06:00 06:15 Temperature Pulse Rate 71 63 64 Pulse Rate [ From Monitor] Respiratory 12 13 13 Rate Blood Pressure 161/106 153/98 154/98 O2 Sat by Pulse 99 99 98 Oximetry O2 Sat by Pulse Oximetry [ Bilateral] 09/26/21 09/26/21 09/26/21 06:30 06:45 07:00 Temperature 97.8 F Pulse Rate 80 79 84 Pulse Rate [ From Monitor] Respiratory 17 14 17 Rate Blood Pressure 158/108 150/101 156/104 O2 Sat by Pulse 100 99 97 Oximetry O2 Sat by Pulse Oximetry [ Bilateral] 09/26/21 09/26/21 09/26/21 07:15 07:30 07:45 Temperature Pulse Rate 84 82 81 Pulse Rate [ From Monitor] Respiratory 18 11 L 13 Rate Blood Pressure 161/107 159/109 162/111 O2 Sat by Pulse 100 100 100 Oximetry O2 Sat by Pulse Oximetry [ Bilateral] 09/26/21 09/26/21 09/26/21 08:00 08:04 08:15 Temperature Pulse Rate 78 83 Pulse Rate [ From Monitor] Respiratory 14 18 Rate Blood Pressure 178/109 171/114 O2 Sat by Pulse 100 100 99 Oximetry O2 Sat by Pulse Oximetry [ Bilateral] 09/26/21 09/26/21 09/26/21 08:30 08:45 09:00 Temperature Pulse Rate 87 88 85 Pulse Rate [ 76 From Monitor] Respiratory 12 21 15 Rate Blood Pressure 179/122 173/122 185/127 O2 Sat by Pulse 100 100 100 Oximetry O2 Sat by Pulse Oximetry [ Bilateral] 09/26/21 09/26/21 09/26/21 09:15 09:30 09:45 Temperature 97.5 F L Pulse Rate 80 80 88 Pulse Rate [ From Monitor] Respiratory 19 14 14 Rate Blood Pressure 183/123 176/119 173/121 O2 Sat by Pulse 100 99 99 Oximetry O2 Sat by Pulse 100 Oximetry [ Bilateral] 09/26/21 09/26/21 09/26/21 10:00 10:01 10:15 Temperature Pulse Rate 84 86 76 Pulse Rate [ From Monitor] Respiratory 18 14 Rate Blood Pressure 181/126 181/126 175/120 O2 Sat by Pulse 100 99 Oximetry O2 Sat by Pulse Oximetry [ Bilateral] 09/26/21 09/26/21 09/26/21 10:29 10:30 10:45 Temperature Pulse Rate 85 96 H 87 Pulse Rate [ From Monitor] Respiratory 17 14 Rate Blood Pressure 177/126 177/126 O2 Sat by Pulse 100 100 Oximetry O2 Sat by Pulse Oximetry [ Bilateral] 09/26/21 09/26/21 09/26/21 11:00 11:15 11:30 Temperature 98.0 F Pulse Rate 85 85 86 Pulse Rate [ From Monitor] Respiratory 13 14 13 Rate Blood Pressure 178/119 163/115 165/120 O2 Sat by Pulse 97 98 100 Oximetry O2 Sat by Pulse Oximetry [ Bilateral] 09/26/21 09/26/21 11:45 12:01 Temperature Pulse Rate 83 82 Pulse Rate [ From Monitor] Respiratory 11 L 13 Rate Blood Pressure 167/116 165/112 O2 Sat by Pulse 100 98 Oximetry O2 Sat by Pulse Oximetry [ Bilateral] - General Appearance General appearance: well-developed, appears stated age EENT: ATNC, PERRL, hearing intact, vision intact Neck: no JVD, supple Respiratory: Present: Decreased Breath Sounds Cardiology: S1S2 Gastrointestinal: normoactive bowel sounds Integumentary: warm and dry Neurologic: other (Awake and alert) - Lab 09/26/21 04:37 09/26/21 04:37 Most recent lab results ABG pH 7.399 pH Units (7.350-7.450) 09/25/21 07:52 ABG pCO2 38.5 mm Hg 09/25/21 07:52 ABG pO2 56.0 mm Hg (80.0-90.0) L 09/25/21 07:52 ABG HCO3 23.2 mmol/L (20.0-26.0) 09/25/21 07:52 ABG O2 Saturation 91.4 % (95.0-99.0) L 09/25/21 07:52 Calcium 9.5 mg/dL (8.4-10.2) 09/26/21 04:37 Phosphorus 6.20 mg/dL (2.5-4.5) H 09/26/21 04:37 Magnesium 2.40 mg/dL (1.7-2.3) H 09/24/21 16:12 Medications & Allergies - Medications Allergies/Adverse Reactions: Allergies No Known Allergies Allergy (Unverified 09/24/21 12:37) Home Medications: Home Medications Medication Instructions Recorded Confirmed Last Taken Type Acetaminophen with Codeine 1 each PO Q8H PRN 09/25/21 09/25/21 09/16/21 21:00 History [Acetaminophen-Cod #3 Tablet] Cyclobenzaprine [Flexeril] 10 mg PO QHS PRN 09/25/21 09/25/21 09/23/21 21:00 History NIFEdipine [Nifedipine ER] 90 mg PO QDAY 09/25/21 09/25/21 09/23/21 09:00 History Sevelamer Carbonate [Renvela] 800 mg PO TIDWM 09/25/21 09/25/21 09/24/21 17:00 History Zolpidem Tartrate [Zolpidem 12.5 mg PO PRN PRN 09/25/21 09/25/21 09/23/21 21:00 History Tartrate ER] carvediloL 25 mg PO BID 09/25/21 09/25/21 09/23/21 21:00 History Active Medications: Generic Name Dose Route Start Last Admin Trade Name Freq PRN Reason Stop Dose Admin Acetaminophen 650 mg 09/24/21 19:31 09/25/21 11:10 Acetaminophen 325 Mg Tab PO 650 mg Q6H PRN Administration Pain MILD(1-3)/Fever >100.5/GARCIA Albuterol 2.5 mg 09/24/21 19:31 Albuterol 2.5 Mg/3 Ml Nebu IH Q3HRT PRN Shortness Of Breath Ascorbic Acid 500 mg 09/24/21 22:00 09/26/21 10:01 Ascorbic Acid 500 Mg Tab PO 500 mg BID ANTHONY Administration Azithromycin 500 mg 09/26/21 20:00 Azithromycin 250 Mg Tab PO 09/29/21 20:01 Q24H ANTHONY Protocol Carvedilol 25 mg 09/26/21 10:00 09/26/21 10:01 Carvedilol 25 Mg Tab PO 25 mg Q12HR ANTHONY Administration Cholecalciferol 1,000 unit 09/27/21 10:00 Cholecalciferol (Vit D3) 1000 Unit (25 Mcg) Tab PO QDAY ANTHONY Cyclobenzaprine HCl 10 mg 09/26/21 22:00 Cyclobenzaprine 10 Mg Tab PO QHS PRN Sleep Heparin Sodium (Porcine) 5,000 unit 09/24/21 22:00 09/26/21 10:01 Heparin 5,000 Unit/1 Ml Vial SUB-Q 5,000 unit Q12HR ANTHONY Administration Hydralazine HCl 10 mg 09/26/21 00:19 09/26/21 05:45 Hydralazine 20 Mg/1 Ml Inj IV 10 mg Q4HR PRN Administration Increased Blood Pressure Hydralazine HCl 50 mg 09/26/21 14:00 Hydralazine 25 Mg Tab PO Q8HR [facility] Hydromorphone HCl 0.25 mg 09/24/21 19:31 09/24/21 19:55 Hydromorphone 0.5 Mg/0.5 Ml Inj IV 0.25 mg Q4H PRN Administration Pain, Moderate (4-6) Hydromorphone HCl 0.5 mg 09/25/21 11:00 09/25/21 23:57 Hydromorphone 0.5 Mg/0.5 Ml Inj IV 0.5 mg Q4H PRN Administration Pain , Severe (7-10) Ceftriaxone Sodium 2 gm in 100 mls @ 200 mls/hr 09/24/21 20:00 09/25/21 23:56 Rocephin/Ns 2 Gm/100 Ml IV 200 mls/hr Q24H [facility] Administration Protocol Vancomycin HCl 1 gm in 250 mls @ 167.007 mls/hr 09/26/21 21:00 Vancomycin/Ns 1 Gm/250 Ml IV 09/26/21 23:59 ONCE@2100 [facility] Nifedipine 90 mg 09/26/21 10:00 09/26/21 10:01 Nifedipine Xl 90 Mg Tab PO 90 mg QDAY [facility] Administration Ondansetron HCl 4 mg 09/26/21 01:03 09/26/21 08:43 Ondansetron 4 Mg/2 Ml Inj IV 4 mg Q6H PRN Administration Nausea And Vomiting Oxycodone/Acetaminophen 1 tab 09/24/21 19:31 Oxycodone /Acetaminophen 5-325mg Tab PO Q6H PRN Pain, Moderate (4-6) Sevelamer Carbonate 800 mg 09/26/21 08:00 09/26/21 08:43 Sevelamer Carbonate 800 Mg Tab PO 800 mg TIDWM ANTHONY Administration Sodium Chloride 10 ml 09/24/21 22:00 09/26/21 10:00 Sodium Chloride 0.9% 10 Ml Flush Syringe IV 10 ml BID ANTHONY Administration Sodium Chloride 10 ml 09/24/21 19:31 Sodium Chloride 0.9% 10 Ml Flush Syringe IV PRN PRN LINE FLUSH Zinc Sulfate 220 mg 09/24/21 22:00 09/26/21 10:01 Zinc Sulfate 220 Mg Cap PO 220 mg BID ANTHONY Administration
[2021-09-26] MEDS ORDERED: EPOETIN ALFA-EPBX 20,000 UNIT/1 ML VIAL IV PRN (12:22)
--- NOTE | 2021-09-26 14:47 | Progress Note ---
Assessment and Plan Cultures: Blood culture staph aureus COVID-19 pending A/P: 46-year-old male past medical history ESRD on home dialysis now with: #Acute sepsis: With leukocytosis, tachypnea. Likely secondary to gram-positive bacteremia, possible COVID-19. #Staph bacteremia: Awaiting culture finalization. Likely secondary to dialysis. #Pneumonia: Negative COVID-19 PCR. #ESRD on HD: Renally dose medications. Recs: -Continue ceftriaxone and azithromycin for now for pneumonia -Continue vancomycin pending culture results. -Follow-up blood cultures -Obtain TTE, repeat blood cultures -If blood cultures remain persistently positive will check ultrasound of left AVG Thank you for the consult, we will continue to follow. Isidro Sprague MD [facility] O: [phone] F: [phone] Subjective Date of service: 09/26/21 Principal diagnosis: ESRD Interval history: Afebrile, normal white count. Blood cultures with staph aureus. Objective - Exam Narrative Exam: Physical exam deferred to reduce risk of transmission of COVID-19. Please refer to primary team's note. - Constitutional Vitals: Vital Signs Temp Pulse Resp BP Pulse Ox 97.5 F L 82 12 145/98 100 09/26/21 13:30 09/26/21 14:00 09/26/21 14:00 09/26/21 14:00 09/26/21 14:00 Temperature -Last 24 Hours Temperature 97.5 F Temperature 98.0 F Temperature 97.5 F Temperature 97.8 F Temperature 97.5 F Temperature 98.0 F Temperature 97.7 F Temperature 97.7 F - Labs CBC & Chem 7: 09/26/21 04:37 09/26/21 04:37 Labs: Abnormal lab results 09/26/21 09/26/21 Range/Units 04:37 04:37 RBC 2.76 L (3.65-5.03) M/mm3 Hgb 7.8 L (11.8-15.2) gm/dl Hct 23.2 L (35.5-45.6) % RDW 17.1 H (13.2-15.2) % Potassium 5.1 H (3.6-5.0) mmol/L Chloride 96.3 L (98-107) mmol/L BUN 51 H (9-20) mg/dL Creatinine 9.5 H (0.8-1.3) mg/dL Glucose 176 H (75-100) mg/dL Phosphorus 6.20 H (2.5-4.5) mg/dL
[2021-09-26] MEDS: hydrALAZINE 25 MG TAB PO SCH ×2 (15:41→22:38)
--- NOTE | 2021-09-26 17:37 | Ultrasound Report ---
US abdomen limited INDICATION / CLINICAL INFORMATION: gallbladder. COMPARISON: CT from 09/24/2021. FINDINGS: PANCREAS: No significant abnormality. ABDOMINAL AORTA: No significant abnormality. IVC: No significant abnormality. LIVER: Liver is normal in size. The liver demonstrates increased echogenicity. No focal hepatic lesio n. PORTAL VEIN: Normal hepatopedal blood flow in the main portal vein. GALLBLADDER: Gallbladder is contracted. Tiny gallbladder polyps are present. Despite contraction, the re is no significant gallbladder wall thickening. Negative sonographic Cooney's sign. BILE DUCTS: Common bile duct measures 4 mm. No significant abnormality. RIGHT KIDNEY: Right kidney is atrophic with increased cortical echogenicity, consistent with chronic medical renal disease. No acute abnormality. FREE FLUID: None. ADDITIONAL FINDINGS: None. IMPRESSION: 1. Tiny gallbladder polyps. Gallbladder is contracted without evidence of cholecystitis. 2. Fatty infiltration of the liver. 3. Findings indicative of chronic medical renal disease in the right kidney without acute abnormality . Signer Name: Stu Colin MD Signed: 09/26/2021 5:32 PM Workstation Name: [id number]
[2021-09-26] MEDS: cefTRIAXone/NS 2 GM/100 ML 2 GM/100 ML BAG IV SCH (19:36)
[2021-09-26] MEDS: HYDROmorphone 0.5 MG/0.5 ML INJ IV PRN (19:36)
[2021-09-26] MEDS: AZITHROMYCIN 250 MG TAB PO SCH (19:50)
[2021-09-26] MEDS ORDERED: VANCOMYCIN/NS 1 GM/250 ML 1 GM/250 ML BAG IV SCH (21:00)
[2021-09-26] MEDS: CYCLOBENZAPRINE 10 MG TAB PO PRN (22:38)
[2021-09-27] MEDS: ONDANSETRON 4 MG/2 ML INJ IV PRN (00:49)
[2021-09-27] MEDS: HYDROmorphone 0.5 MG/0.5 ML INJ IV PRN (00:49)
[2021-09-27 04:56] LABS: Hematocrit 25.4 % (35.5-45.6); Hemoglobin 8.3 gm/dl (11.8-15.2); Mean Corpuscular HGB Conc 33 % (32-34); Mean Corpuscular Volume 86 fl (84-94); Platelet Count 200 K/mm3 (140-440); Red Blood Count 2.95 M/mm3 (3.65-5.03); Red Cell Distribution Width 17.6 % (13.2-15.2)
[2021-09-27 05:14] LABS: Calcium 9.4 mg/dL (8.4-10.2)
[2021-09-27] MEDS: hydrALAZINE 25 MG TAB PO SCH ×3 (06:42→21:59)
--- NOTE | 2021-09-27 09:50 | Electrocardiograph Report ---
[facility] Test Date: 2021-09-24 Test Time: 13:57:57 Pat Name: ARIN REZA Department: Room: A265 1 Gender: M [employer]: LOGAN : 1975 Requested By: PRISCILA GODFREY Order Number: [id number] Reading MD: Walter Wild Measurements Intervals [place] Rate: 111 P: 56 NH: 178 QRS: 43 QRSD: 86 T: 47 QT: 327 QTc: 445 Interpretive Statements Sinus tachycardia Probable left atrial enlargement Left ventricular hypertrophy PRWP ST elev, probable normal early repol pattern No previous ECG available for comparison Electronically Signed On 09-27-2021 9:50:46 EDT by Walter Wild
--- NOTE | 2021-09-27 10:23 | Progress Note ---
Assessment and Plan Assessment: ESRD on hemodialysis Hypertension AMS Sepsis Anemia Hyperkalemia, Resolved Hyperphosphatemia Plan: S/P Hemodialysis yesterday for UF and clearance. On ,, schedule Anemia- Epogen 20,000 units with HD Has left AVG to left forearm Hyperphosphatemia-On Renvela 1 tab TID with meals Fluid restriction of 1 liter per day Low potassium diet Renally dose medications Strict I/O's daily Assess dialysis needs daily Plan of care reviewed by Dr. Villegas Subjective Date of service: 09/27/21 Principal diagnosis: ESRD Interval history: Patient seen siting up at edge of bed. States he is washing up. Allowed patient to cover himself during visit. Objective - Vital Signs Vital signs: Vital Signs - 12hr 09/26/21 09/26/21 09/26/21 22:30 22:38 22:45 Temperature Pulse Rate 100 H 103 H 110 H Pulse Rate [ From Monitor] Respiratory 13 26 H Rate Blood Pressure 130/89 130/89 134/97 O2 Sat by Pulse 96 Oximetry 09/26/21 09/26/21 09/26/21 23:00 23:15 23:30 Temperature Pulse Rate 95 H 95 H 96 H Pulse Rate [ From Monitor] Respiratory 18 19 17 Rate Blood Pressure 125/92 132/91 125/94 O2 Sat by Pulse 97 97 Oximetry 09/26/21 09/26/21 09/26/21 23:35 23:45 23:50 Temperature Pulse Rate 98 H 96 H 96 H Pulse Rate [ From Monitor] Respiratory 15 17 Rate Blood Pressure 125/94 135/89 O2 Sat by Pulse 97 96 Oximetry 09/27/21 09/27/21 09/27/21 00:00 00:30 01:00 Temperature 98.8 F Pulse Rate 92 H 94 H 91 H Pulse Rate [ 92 H From Monitor] Respiratory 19 16 15 Rate Blood Pressure 131/94 123/89 123/86 O2 Sat by Pulse 97 95 Oximetry 09/27/21 09/27/21 09/27/21 01:30 02:00 02:30 Temperature Pulse Rate 88 87 86 Pulse Rate [ From Monitor] Respiratory 11 L 12 22 Rate Blood Pressure 120/85 119/82 122/80 O2 Sat by Pulse 94 Oximetry 09/27/21 09/27/21 09/27/21 03:00 03:30 03:55 Temperature Pulse Rate 86 85 87 Pulse Rate [ From Monitor] Respiratory 18 22 Rate Blood Pressure 118/81 116/82 O2 Sat by Pulse 94 Oximetry 09/27/21 09/27/21 09/27/21 04:00 04:30 05:00 Temperature 98.9 F Pulse Rate 88 85 87 Pulse Rate [ 85 From Monitor] Respiratory 17 13 13 Rate Blood Pressure 119/83 120/79 121/82 O2 Sat by Pulse 97 Oximetry 09/27/21 09/27/21 09/27/21 05:30 06:00 06:30 Temperature Pulse Rate 86 89 89 Pulse Rate [ From Monitor] Respiratory 13 15 12 Rate Blood Pressure 122/83 126/89 123/89 O2 Sat by Pulse 98 96 Oximetry 09/27/21 06:42 Temperature Pulse Rate 88 Pulse Rate [ From Monitor] Respiratory Rate Blood Pressure 123/89 O2 Sat by Pulse Oximetry - General Appearance General appearance: well-developed, appears stated age EENT: ATNC, PERRL, hearing intact, vision intact Neck: no JVD, supple Respiratory: Present: Decreased Breath Sounds Cardiology: S1S2 Gastrointestinal: normoactive bowel sounds Integumentary: warm and dry Neurologic: alert and oriented x3 Musculoskeletal: other (no edma) - Lab 09/27/21 04:06 09/27/21 04:06 Most recent lab results ABG pH 7.399 pH Units (7.350-7.450) 09/25/21 07:52 ABG pCO2 38.5 mm Hg 09/25/21 07:52 ABG pO2 56.0 mm Hg (80.0-90.0) L 09/25/21 07:52 ABG HCO3 23.2 mmol/L (20.0-26.0) 09/25/21 07:52 ABG O2 Saturation 91.4 % (95.0-99.0) L 09/25/21 07:52 Calcium 9.4 mg/dL (8.4-10.2) 09/27/21 04:06 Phosphorus 6.20 mg/dL (2.5-4.5) H 09/26/21 04:37 Magnesium 2.40 mg/dL (1.7-2.3) H 09/24/21 16:12 Medications & Allergies - Medications Allergies/Adverse Reactions: Allergies No Known Allergies Allergy (Unverified 09/24/21 12:37) Home Medications: Home Medications Medication Instructions Recorded Confirmed Last Taken Type Acetaminophen with Codeine 1 each PO Q8H PRN 09/25/21 09/25/21 09/16/21 21:00 History [Acetaminophen-Cod #3 Tablet] Cyclobenzaprine [Flexeril] 10 mg PO QHS PRN 09/25/21 09/25/21 09/23/21 21:00 History NIFEdipine [Nifedipine ER] 90 mg PO QDAY 09/25/21 09/25/21 09/23/21 09:00 History Sevelamer Carbonate [Renvela] 800 mg PO TIDWM 09/25/21 09/25/21 09/24/21 17:00 History Zolpidem Tartrate [Zolpidem 12.5 mg PO PRN PRN 09/25/21 09/25/21 09/23/21 21:00 History Tartrate ER] carvediloL 25 mg PO BID 09/25/21 09/25/21 09/23/21 21:00 History Active Medications: Generic Name Dose Route Start Last Admin Trade Name Freq PRN Reason Stop Dose Admin Acetaminophen 650 mg 09/24/21 19:31 09/25/21 11:10 Acetaminophen 325 Mg Tab PO 650 mg Q6H PRN Administration Pain MILD(1-3)/Fever >100.5/GARCIA Albuterol 2.5 mg 09/24/21 19:31 Albuterol 2.5 Mg/3 Ml Nebu IH Q3HRT PRN Shortness Of Breath Ascorbic Acid 500 mg 09/24/21 22:00 09/26/21 22:38 Ascorbic Acid 500 Mg Tab PO 500 mg BID ANTHONY Administration Azithromycin 500 mg 09/26/21 20:00 09/26/21 19:50 Azithromycin 250 Mg Tab PO 09/29/21 20:01 500 mg Q24H ANTHONY Administration Protocol Carvedilol 25 mg 09/26/21 10:00 09/26/21 22:38 Carvedilol 25 Mg Tab PO 25 mg Q12HR ANTHONY Administration Cholecalciferol 1,000 unit 09/27/21 10:00 Cholecalciferol (Vit D3) 1000 Unit (25 Mcg) Tab PO QDAY [facility] Cyclobenzaprine HCl 10 mg 09/26/21 22:00 09/26/21 22:38 Cyclobenzaprine 10 Mg Tab PO 10 mg QHS PRN Administration Sleep Epoetin Stephen-epbx 20,000 unit 09/26/21 12:22 Epoetin Stephen-Epbx 20,000 Unit/1 Ml Vial IV PRUDENCE PRN hemodialysis Heparin Sodium (Porcine) 5,000 unit 09/24/21 22:00 09/26/21 22:39 Heparin 5,000 Unit/1 Ml Vial SUB-Q 5,000 unit Q12HR ANTHONY Administration Hydralazine HCl 10 mg 09/26/21 00:19 09/26/21 05:45 Hydralazine 20 Mg/1 Ml Inj IV 10 mg Q4HR PRN Administration Increased Blood Pressure Hydralazine HCl 50 mg 09/26/21 14:00 09/27/21 06:42 Hydralazine 25 Mg Tab PO 50 mg Q8HR ANTHONY Administration Hydromorphone HCl 0.25 mg 09/24/21 19:31 09/24/21 19:55 Hydromorphone 0.5 Mg/0.5 Ml Inj IV 0.25 mg Q4H PRN Administration Pain, Moderate (4-6) Hydromorphone HCl 0.5 mg 09/25/21 11:00 09/27/21 00:49 Hydromorphone 0.5 Mg/0.5 Ml Inj IV 0.5 mg Q4H PRN Administration Pain , Severe (7-10) Ceftriaxone Sodium 2 gm in 100 mls @ 200 mls/hr 09/24/21 20:00 09/26/21 19:36 Rocephin/Ns 2 Gm/100 Ml IV 200 mls/hr Q24H ANTHONY Administration Protocol Nifedipine 90 mg 09/26/21 10:00 09/26/21 10:01 Nifedipine Xl 90 Mg Tab PO 90 mg QDAY ANTHONY Administration Ondansetron HCl 4 mg 09/26/21 01:03 09/27/21 00:49 Ondansetron 4 Mg/2 Ml Inj IV 4 mg Q6H PRN Administration Nausea And Vomiting Oxycodone/Acetaminophen 1 tab 09/24/21 19:31 Oxycodone /Acetaminophen 5-325mg Tab PO Q6H PRN Pain, Moderate (4-6) Sevelamer Carbonate 800 mg 09/26/21 08:00 09/26/21 17:45 Sevelamer Carbonate 800 Mg Tab PO 800 mg TIDWM ANTHONY Administration Sodium Chloride 10 ml 09/24/21 22:00 09/26/21 22:39 Sodium Chloride 0.9% 10 Ml Flush Syringe IV 10 ml BID ANTHONY Administration Sodium Chloride 10 ml 09/24/21 19:31 Sodium Chloride 0.9% 10 Ml Flush Syringe IV PRN PRN LINE FLUSH Zinc Sulfate 220 mg 09/24/21 22:00 09/26/21 22:38 Zinc Sulfate 220 Mg Cap PO 220 mg BID ANTHONY Administration
[2021-09-27] MEDS: HEPARIN 5,000 UNIT/1 ML VIAL SUB-Q SCH ×2 (10:30→21:59)
[2021-09-27] MEDS: ZINC SULFATE 220 MG CAP PO SCH ×2 (10:30→21:59)
[2021-09-27] MEDS: NIFEdipine XL 90 MG TAB PO SCH (10:30)
[2021-09-27] MEDS: carvediloL 25 MG TAB PO SCH ×2 (10:30→21:59)
[2021-09-27] MEDS: ASCORBIC ACID 500 MG TAB PO SCH ×2 (10:30→21:59)
[2021-09-27] MEDS: CHOLECALCIFEROL (VIT D3) 1000 UNIT (25 mcg) TAB PO SCH (10:30)
[2021-09-27] MEDS: SEVELAMER CARBONATE 800 MG TAB PO SCH ×4 (10:30→17:06)
--- NOTE | 2021-09-27 10:30 | Progress Note ---
Assessment and Plan Assessment and plan: 46 YO Male with ESRD on Home Dialysis, HUS presents to ED for evaluation. Patient is confused with diminished cognition at the time my evaluation is unable to provide history. Patient history taken from EMS staff, ED staff, as well as the patient's son who is at bedside during exam and interview. Patient sounds at the patient has been "under the weather". Over the past 3 days with persistent and worsening symptoms over the same timeframe. Patient signed acknowledges weakness, fatigue, shortness of breath, body aches, diminished sense of smell, diminished sense of taste. The patient awakened today from sleep at 1100 hrs. and complained of abdominal discomfort. Patient was also found to be confused. EMS was notified and upon arrival the patient was found to be in distress and subsequently transported to [facility] for further care and evaluation of the aforementioned symptoms. The patient was seen and evaluated in the emergency department. All lab and imaging studies reviewed. Patient was found to have a pulse oximetry of 88% on room air which is consistent with acute hypoxemic respiratory failure. Patient underwent chest x-ray and was found to have bilateral pneumonia complicated by sepsis. Patient admitted to [facility] and initiated on sepsis protocol as well as pneumonia protocol, in conjunction with coronavirus protocol. No reports of fever, chills, chest pain, palpitation, skin rash, recent ill contacts, or known exposure to COVID-19. No prior admission for review. No medication listed at time of admission for reconciliation. Advanced care planning conducted in ED. 09/25: Patient remains confused at this time. Work-up so far has been negative CT abdomen pelvis was negative except for small pleural effusion. Testicular ultrasound was reported negative. Still have not been able to speak to the family to obtain further information. Awaiting further cultures and work-up. We will obtain a CT head. We will obtain neurology evaluation if neuro status does not improve. Will reevaluate following HD. Patient at this time is tolerating bedside swallow evaluation so we will start on renal diet. 09/26: Awaiting Neurology eval, restart home meds, continue abx and follow cultures. Mental status showing some improvement but still intermittently confused. Stop IV steroids. Anemia showing some improvement without transfusion. Patient for another HD today. I discussed with the son extensively, patients last HD was on 09/20/21 before admission. Cultures growing staph aureus. Continue antibiotics await further instructions and adjustments by ID. He continues to complain of abdominal pain. Imaging studies and labs have been negative but today was noted to have green bile emesis. Will obtain abdominal ultrasound and also consult GI 09/27: Patient seen and examined, no fever today, repeat culture and Echo pending. Continue HD and Antibiotics (1) Sepsis of unknown etiology Current Visit: Yes Status: Acute Qualifiers: Acute respiratory failure type: with hypoxia Plan to address problem: Sepsis protocol: Chest x-ray, CBC, CMP, urinalysis, IV antibiotic therapy, IV fluid resuscitation therapy, maintain mean arterial pressure greater than or equal to 65, serial lactic acid level, monitor fluid balance, IV pressor support as clinically indicated. (2) Acute hypoxemic respiratory failure Current Visit: Yes Status: Acute Plan to address problem: Chest x-ray, supplemental oxygen, pulse oximetry, nebulizer therapy, pulmonary t oilet. Will consider high flow supplemental oxygen if patient is unable to maintain pulse oximetry on supplemental oxygen via nasal cannula. (3) Pneumonia Current Visit: Yes Status: Acute Plan to address problem: Pneumonia protocol: Chest x-ray, CBC, CMP, IV antibiotic therapy, IV fluid resuscitation therapy, nebulized therapy, blood culture. (4) Anemia of chronic disease Current Visit: Yes Status: Acute Plan to address problem: Nephrology team consulted. Will consider packed red cell transfusion with dialysis. (5) End stage renal disease Current Visit: Yes Status: Acute Plan to address problem: Nephrology team consulted in ED. Dialysis as per renal team. (6) Toxic metabolic encephalopathy Current Visit: Yes Status: Acute Plan to address problem: Supportive care, treat sepsis, BMP, repeat BMP in a.m., neurochecks Will obtain CT of the head (7) Suspected 2019 novel coronavirus infection Current Visit: Yes Status: Acute Plan to address problem: Negative (8) Hyperkalemia likely related to renal failure (9) DVT prophylaxis Current Visit: Yes Status: Acute Plan to address problem: SCD to bilateral lower extremities while in bed, prophylactic anticoagulation. (10) Advance care planning Current Visit: Yes Status: Acute Plan to address problem: Disease education data, care plan discussed, diagnoses discussed, prognosis discussed, patient is full code. Patient family knowledges understanding and agreement with care plan, +30 minutes. The high probability of a clinically significant, sudden or life threatening deterioration of the [multiple organs including renal] system(s) required my full and direct attention, intervention and personal management. The aggregate critical care time was [35] minutes. This time is in addition to time spent performing reported procedures but includes the following: [x] Data Review and interpretation [x] Patient assessment and monitoring of vital signs [x] Documentation [x] Medication orders and management Hospitalist Physical - Constitutional Vitals: Temp Pulse Resp BP Pulse Ox 98.9 F 88 12 123/89 96 09/27/21 04:00 09/27/21 06:42 09/27/21 06:30 09/27/21 06:42 09/27/21 06:00 General appearance: Present: mild distress HEART Score - HEART Score Troponin: Troponin T 0.083 ng/mL (0.00-0.029) H 09/24/21 16:12 Results - Labs CBC & Chem 7: 09/27/21 04:06 09/27/21 04:06 Labs: Laboratory Last Values WBC 9.1 K/mm3 (4.5-11.0) 09/27/21 04:06 RBC 2.95 M/mm3 (3.65-5.03) L 09/27/21 04:06 Hgb 8.3 gm/dl (11.8-15.2) L 09/27/21 04:06 Hct 25.4 % (35.5-45.6) L 09/27/21 04:06 MCV 86 fl (84-94) 09/27/21 04:06 MCH 28 pg (28-32) 09/27/21 04:06 MCHC 33 % (32-34) 09/27/21 04:06 RDW 17.6 % (13.2-15.2) H 09/27/21 04:06 Plt Count 200 K/mm3 (140-440) 09/27/21 04:06 Lymph % (Auto) 8.9 % (13.4-35.0) L 09/24/21 14:28 [place] % (Auto) 12.1 % (0.0-7.3) H 09/24/21 14:28 Eos % (Auto) 0.1 % (0.0-4.3) 09/24/21 14:28 Baso % (Auto) 0.4 % (0.0-1.8) 09/24/21 14:28 Lymph # (Auto) 1.1 K/mm3 (1.2-5.4) L 09/24/21 14:28 [place] # (Auto) 1.4 K/mm3 (0.0-0.8) H 09/24/21 14:28 Eos # (Auto) 0.0 K/mm3 (0.0-0.4) 09/24/21 14:28 Baso # (Auto) 0.1 K/mm3 (0.0-0.1) 09/24/21 14:28 Seg Neutrophils % 78.5 % (40.0-70.0) H 09/24/21 14:28 Seg Neutrophils # 9.3 K/mm3 (1.8-7.7) H 09/24/21 14:28 PT 15.3 Sec. (12.2-14.9) H 09/24/21 14:28 INR 1.09 (0.87-1.13) 09/24/21 14:28 ABG pH 7.399 pH Units (7.350-7.450) 09/25/21 07:52 ABG pCO2 38.5 mm Hg 09/25/21 07:52 ABG pO2 56.0 mm Hg (80.0-90.0) L 09/25/21 07:52 ABG HCO3 23.2 mmol/L (20.0-26.0) 09/25/21 07:52 ABG O2 Saturation 91.4 % (95.0-99.0) L 09/25/21 07:52 ABG O2 Content 9.3 (0.0-44) 09/25/21 07:52 ABG Base Excess -1.4 mmol/L (-2.0-3.0) 09/25/21 07:52 ABG Hemoglobin 7.3 gm/dl (14.0-18.0) L 09/25/21 07:52 ABG Carboxyhemoglobin 1.7 % (0.0-5.0) 09/25/21 07:52 ABG Methemoglobin 0.5 % (0.0-1.5) 09/25/21 07:52 Oxyhemoglobin 89.5 % (95.0-99.0) L 09/25/21 07:52 FiO2 21 % 09/25/21 07:52 Sodium 137 mmol/L (137-145) 09/27/21 04:06 Potassium 4.5 mmol/L (3.6-5.0) 09/27/21 04:06 Chloride 93.3 mmol/L (98-107) L 09/27/21 04:06 Carbon Dioxide 27 mmol/L (22-30) 09/27/21 04:06 Anion Gap 21 mmol/L 09/27/21 04:06 BUN 41 mg/dL (9-20) H 09/27/21 04:06 Creatinine 7.6 mg/dL (0.8-1.3) H 09/27/21 04:06 Estimated GFR 9 ml/min 09/27/21 04:06 BUN/Creatinine Ratio 5 % 09/27/21 04:06 Glucose 148 mg/dL (75-100) H 09/27/21 04:06 POC Glucose 124 mg/dL (70-105) H 09/24/21 19:04 Lactic Acid 1.40 mmol/L (0.7-2.0) 09/24/21 20:48 Calcium 9.4 mg/dL (8.4-10.2) 09/27/21 04:06 Phosphorus 6.20 mg/dL (2.5-4.5) H 09/26/21 04:37 Magnesium 2.40 mg/dL (1.7-2.3) H 09/24/21 16:12 Total Bilirubin 0.50 mg/dL (0.1-1.2) 09/24/21 16:12 AST 15 units/L (5-40) 09/24/21 16:12 ALT 18 units/L (7-56) 09/24/21 16:12 Alkaline Phosphatase 125 units/L (35-129) 09/24/21 16:12 Total Creatine Kinase 63 units/L (55-170) 09/24/21 16:12 Troponin T 0.083 ng/mL (0.00-0.029) H 09/24/21 16:12 Total Protein 8.2 g/dL (6.3-8.2) 09/24/21 16:12 Albumin 3.7 g/dL (3.9-5) L 09/24/21 16:12 Albumin/Globulin Ratio 0.8 % 09/24/21 16:12 Triglycerides 169 mg/dL (2-149) H 09/24/21 16:12 Cholesterol 117 mg/dL (50-199) 09/24/21 16:12 LDL Cholesterol Direct 50 mg/dL (50-130) 09/24/21 16:12 HDL Cholesterol 23 mg/dL (40-59) L 09/24/21 16:12 Cholesterol/HDL Ratio 5.08 % 09/24/21 16:12 Lipase 14 units/L (13-60) 09/24/21 14:28 Nasal Screen MRSA (PCR) Negative (Negative) 09/25/21 Unknown Random Vancomycin 16.0 ug/mL (0-40.0) 09/26/21 09:40 Coronavirus (PCR) Negative (Negative) 09/25/21 Unknown Hepatitis A IgM Ab Non-reactive (NonReactive) 09/25/21 13:32 Hep Bs Antigen Non-reactive (Negative) 09/25/21 13:32 Hep B Core IgM Ab Non-reactive (NonReactive) 09/25/21 13:32 Hepatitis C Antibody Non-reactive (NonReactive) 09/25/21 13:32 Microbiology: Microbiology 09/24/21 17:50 Peripheral/Venous Blood Culture - Preliminary Staphylococcus Aureus 09/24/21 17:50 Peripheral/Venous Blood Culture - Preliminary Staphylococcus Aureus 09/26/21 15:46 Peripheral/Venous Blood Culture - Preliminary Culture in Progress 09/26/21 15:46 Peripheral/Venous Blood Culture - Preliminary Culture in Progress Active Medications - Current Medications Current Medications: Generic Name Dose Route Start Last Admin Trade Name Freq PRN Reason Stop Dose Admin Acetaminophen 650 mg 09/24/21 19:31 09/25/21 11:10 Acetaminophen 325 Mg Tab PO 650 mg Q6H PRN Administration Pain MILD(1-3)/Fever >100.5/GARCIA Albuterol 2.5 mg 09/24/21 19:31 Albuterol 2.5 Mg/3 Ml Nebu IH Q3HRT PRN Shortness Of Breath Ascorbic Acid 500 mg 09/24/21 22:00 09/26/21 22:38 Ascorbic Acid 500 Mg Tab PO 500 mg BID ANTHONY Administration Azithromycin 500 mg 09/26/21 20:00 09/26/21 19:50 Azithromycin 250 Mg Tab PO 09/29/21 20:01 500 mg Q24H ANTHONY Administration Protocol Carvedilol 25 mg 09/26/21 10:00 09/26/21 22:38 Carvedilol 25 Mg Tab PO 25 mg Q12HR ANTHONY Administration Cholecalciferol 1,000 unit 09/27/21 10:00 Cholecalciferol (Vit D3) 1000 Unit (25 Mcg) Tab PO QDAY ANTHONY Cyclobenzaprine HCl 10 mg 09/26/21 22:00 09/26/21 22:38 Cyclobenzaprine 10 Mg Tab PO 10 mg QHS PRN Administration Sleep Epoetin Stephen-epbx 20,000 unit 09/26/21 12:22 Epoetin Stephen-Epbx 20,000 Unit/1 Ml Vial IV PRUDENCE PRN hemodialysis Heparin Sodium (Porcine) 5,000 unit 09/24/21 22:00 09/26/21 22:39 Heparin 5,000 Unit/1 Ml Vial SUB-Q 5,000 unit Q12HR ANTHONY Administration Hydralazine HCl 10 mg 09/26/21 00:19 09/26/21 05:45 Hydralazine 20 Mg/1 Ml Inj IV 10 mg Q4HR PRN Administration Increased Blood Pressure Hydralazine HCl 50 mg 09/26/21 14:00 09/27/21 06:42 Hydralazine 25 Mg Tab PO 50 mg Q8HR ANTHONY Administration Hydromorphone HCl 0.25 mg 09/24/21 19:31 09/24/21 19:55 Hydromorphone 0.5 Mg/0.5 Ml Inj IV 0.25 mg Q4H PRN Administration Pain, Moderate (4-6) Hydromorphone HCl 0.5 mg 09/25/21 11:00 09/27/21 00:49 Hydromorphone 0.5 Mg/0.5 Ml Inj IV 0.5 mg Q4H PRN Administration Pain , Severe (7-10) Ceftriaxone Sodium 2 gm in 100 mls @ 200 mls/hr 09/24/21 20:00 09/26/21 19:36 Rocephin/Ns 2 Gm/100 Ml IV 200 mls/hr Q24H ANTHONY Administration Protocol Nifedipine 90 mg 09/26/21 10:00 09/26/21 10:01 Nifedipine Xl 90 Mg Tab PO 90 mg QDAY ANTHONY Administration Ondansetron HCl 4 mg 09/26/21 01:03 09/27/21 00:49 Ondansetron 4 Mg/2 Ml Inj IV 4 mg Q6H PRN Administration Nausea And Vomiting Oxycodone/Acetaminophen 1 tab 09/24/21 19:31 Oxycodone /Acetaminophen 5-325mg Tab PO Q6H PRN Pain, Moderate (4-6) Sevelamer Carbonate 800 mg 09/26/21 08:00 09/26/21 17:45 Sevelamer Carbonate 800 Mg Tab PO 800 mg TIDWM ANTHONY Administration Sodium Chloride 10 ml 09/24/21 22:00 09/26/21 22:39 Sodium Chloride 0.9% 10 Ml Flush Syringe IV 10 ml BID ANTHONY Administration Sodium Chloride 10 ml 09/24/21 19:31 Sodium Chloride 0.9% 10 Ml Flush Syringe IV PRN PRN LINE FLUSH Zinc Sulfate 220 mg 09/24/21 22:00 09/26/21 22:38 Zinc Sulfate 220 Mg Cap PO 220 mg BID ANTHONY Administration Nutrition/Malnutrition Assess - Dietary Evaluation Nutrition/Malnutrition Findings: Nutrition Notes Start: 09/25/21 17: 29 Freq: Status: Active Protocol: Document 09/25/21 17:29 EVELIO (Rec: 09/25/21 17:52 EVELIO [email or web address]) Nutrition Notes 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 Current Diet Renal Diet (since D 09/25). Labs/Tests 09/24: Na 134, K 5.6, Cl 98.9, CO2 20, BUN 94, Crea 17.1, Glu 107, Mg 2.4. Pertinent Medications 09/25: Vit C, Vit D3, ZnSO4, others nutritionally unremarkable. 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 Weight Status Overweight Subjective/Other Information RD consult for skin risk assessment. No reports available on Pt's PO intake of meals at the time , will assess at F/U. Pt is on Nasal Cannula, O2 saturation @ 100%, according to Physical Assesment History notes. Pt has missing teeth, according to Physical Assesment History notes. Pt presents diarrhea, according to Physical Assesment History notes. Pt passed bedside Swallow evaluation on 09/25, according to Progress notes. Pt shows no signs of concern for skin risk at the time, according to Physical Assesment History notes. Percent of energy/protein needs met: Prescribed Renal Diet provides for energy/protein needs (2, 072 Kcal/77 g) during LOS. Burn Absent Trauma Absent GI Symptoms Diarrhea Food Allergy No Skin Integrity/Comment Assessment WNL. Minimum of two criteria No #1 Nutrition Diagnosis No nutrition diagnosis at this time Comments: Will assess Pt's PO intake of meals at F/U. Is patient on ventilator? No Is Patient Ambulatory and/or Out of Bed Yes REE-([place]-St. Jeor-ambulatory/OOB) [ 2422.784 [id number]] Kcal/Kg value to use for calculation 24 Approximate Energy Requirements Using 2232 kcal/Kg Calculation Used for Recommendations Kcal/kg Additional Notes Protein: >1.2 g/Kg ABW; >112 g /day. Fluids: 1 ml/Kcal, or as per MD. Nutrition Intervention Change Diet Order: Continue Renal Diet. Follow-Up By: 10/02/21 Additional Comments Continue monitoring food tolerance, %PO intake of meals , and BM.
--- NOTE | 2021-09-27 11:51 | Progress Note ---
Assessment and Plan Assessment and Plan 46 YO Male with ESRD on Home Dialysis, HUS presents to ED for evaluation. Patient is confused with diminished cognition at the time my evaluation is unable to provide history. Patient history taken from EMS staff, ED staff, as well as the patient's son who is at bedside during exam and interview. Patient sounds at the patient has been "under the weather". Over the past 3 days with persistent and worsening symptoms over the same timeframe. Patient signed acknowledges weakness, fatigue, shortness of breath, body aches, diminished sense of smell, diminished sense of taste. The patient awakened today from sleep at 1100 hrs. and complained of abdominal discomfort. Patient was also f ound to be confused. - Patient Problems # Acute Encephalopathy -resolved today -mostly related to underlying infection and or ESRD -CT brain is unremarkable -Cxy is remarkable for possible pneumonia bilateral -COVID-19 Is negative -Positive blood culture Gram positive cocci -Echo is pending -Supportive care, treat sepsis, BMP, repeat BMP in a.m., neurochecks # Sepsis -Sepsis protocol: Chest x-ray, CBC, CMP, urinalysis, IV antibiotic therapy, IV fluid resuscitation therapy, maintain mean arterial pressure greater than or equal to 65, serial lactic acid level, monitor fluid balance, IV pressor support as clinically indicated. # Acute hypoxemic respiratory failure -Chest x-ray, supplemental oxygen, pulse oximetry, nebulizer therapy, pulmonary toilet. Will consider high flow supplemental oxygen if patient is unable to maintain pulse oximetry on supplemental oxygen via nasal cannula. # Pneumonia -Pneumonia protocol: Chest x-ray, CBC, CMP, IV antibiotic therapy, IV fluid resuscitation therapy, nebulized therapy, blood culture. # Anemia of chronic disease -Nephrology team consulted. Will consider packed red cell transfusion with dialysis. # End stage renal disease -Nephrology team consulted in ED. Dialysis as per renal team. # DVT prophylaxis -SCD to bilateral lower extremities while in bed, prophylactic anticoagulation. PLAN 1-Treat underlying infection 2- Hemodialysis 3- Correct elctrolytes abnormalities 4- DVT prophylaxis 5- review echo 6- ID is following will follow Subjective Date of service: 09/27/21 Principal diagnosis: ESRD Interval history: More alert interactive Blood c/s is positive had dialysis Creat--7.6 Objective - Vital Sign Vital Signs - 12hr 09/26/21 09/27/21 09/27/21 23:50 00:00 00:30 Temperature 98.8 F Pulse Rate 96 H 92 H 94 H Pulse Rate [ 92 H From Monitor] Respiratory 19 16 Rate Blood Pressure 131/94 123/89 O2 Sat by Pulse 97 95 Oximetry 09/27/21 09/27/21 09/27/21 01:00 01:30 02:00 Temperature Pulse Rate 91 H 88 87 Pulse Rate [ From Monitor] Respiratory 15 11 L 12 Rate Blood Pressure 123/86 120/85 119/82 O2 Sat by Pulse Oximetry 09/27/21 09/27/21 09/27/21 02:30 03:00 03:30 Temperature Pulse Rate 86 86 85 Pulse Rate [ From Monitor] Respiratory 22 18 22 Rate Blood Pressure 122/80 118/81 116/82 O2 Sat by Pulse 94 94 Oximetry 09/27/21 09/27/21 09/27/21 03:55 04:00 04:30 Temperature 98.9 F Pulse Rate 87 88 85 Pulse Rate [ 85 From Monitor] Respiratory 17 13 Rate Blood Pressure 119/83 120/79 O2 Sat by Pulse 97 Oximetry 09/27/21 09/27/21 09/27/21 05:00 05:30 06:00 Temperature Pulse Rate 87 86 89 Pulse Rate [ From Monitor] Respiratory 13 13 15 Rate Blood Pressure 121/82 122/83 126/89 O2 Sat by Pulse 98 96 Oximetry 09/27/21 09/27/21 09/27/21 06:30 06:42 10:30 Temperature Pulse Rate 89 88 92 H Pulse Rate [ From Monitor] Respiratory 12 Rate Blood Pressure 123/89 123/89 128/90 O2 Sat by Pulse Oximetry - General Apperance Constitutional: comfortable - EENT EENT: PERRL - Respiratory Respiratory: lungs clear, rhonchi - Cardiovascular Cardiovascular: regular rate, normal S1, normal S2 Extremities: no peripheral edema bilat, no clubbing, cyanosis - Gastrointestinal Gastrointestinal: normoactive bowel sounds - Integumentary Integumentary: normal - Neurologic Cranial nerve examination: PERRL, EOMI, intact Speech examination: intact Detailed motor examination: grossly full strength in - Laboratory Findings CBC and BMP: 09/27/21 04:06 09/27/21 04:06 Abnormal Lab Findings: Abnormal Labs 09/24/21 09/24/21 09/24/21 14:28 14:28 14:28 WBC 11.9 H RBC 2.47 L Hgb 6.9 L Hct 21.1 L RDW 17.1 H Lymph % (Auto) 8.9 L [place] % (Auto) 12.1 H Lymph # (Auto) 1.1 L [place] # (Auto) 1.4 H Seg Neutrophils % 78.5 H Seg Neutrophils # 9.3 H PT 15.3 H ABG pO2 ABG O2 Saturation ABG Hemoglobin Oxyhemoglobin Sodium 134 L Potassium 5.4 H Chloride 91.9 L Carbon Dioxide BUN 95 H Creatinine 15.8 H Glucose POC Glucose Phosphorus Magnesium Troponin T Albumin Triglycerides HDL Cholesterol 09/24/21 09/24/21 09/25/21 16:12 19:04 07:52 WBC RBC Hgb Hct RDW Lymph % (Auto) [place] % (Auto) Lymph # (Auto) [place] # (Auto) Seg Neutrophils % Seg Neutrophils # PT ABG pO2 56.0 L ABG O2 Saturation 91.4 L ABG Hemoglobin 7.3 L Oxyhemoglobin 89.5 L Sodium 134 L Potassium 5.6 H Chloride 89.9 L Carbon Dioxide 20 L BUN 94 H Creatinine 17.1 H Glucose 107 H POC Glucose 124 H Phosphorus Magnesium 2.40 H Troponin T 0.083 H Albumin 3.7 L Triglycerides 169 H HDL Cholesterol 23 L 09/26/21 09/26/21 09/27/21 04:37 04:37 04:06 WBC RBC 2.76 L 2.95 L Hgb 7.8 L 8.3 L Hct 23.2 L 25.4 L RDW 17.1 H 17.6 H Lymph % (Auto) [place] % (Auto) Lymph # (Auto) [place] # (Auto) Seg Neutrophils % Seg Neutrophils # PT ABG pO2 ABG O2 Saturation ABG Hemoglobin Oxyhemoglobin Sodium Potassium 5.1 H Chloride 96.3 L Carbon Dioxide BUN 51 H Creatinine 9.5 H Glucose 176 H POC Glucose Phosphorus 6.20 H Magnesium Troponin T Albumin Triglycerides HDL Cholesterol 09/27/21 04:06 WBC RBC Hgb Hct RDW Lymph % (Auto) [place] % (Auto) Lymph # (Auto) [place] # (Auto) Seg Neutrophils % Seg Neutrophils # PT ABG pO2 ABG O2 Saturation ABG Hemoglobin Oxyhemoglobin Sodium Potassium Chloride 93.3 L Carbon Dioxide BUN 41 H Creatinine 7.6 H Glucose 148 H POC Glucose Phosphorus Magnesium Troponin T Albumin Triglycerides HDL Cholesterol
--- NOTE | 2021-09-27 15:36 | Progress Note ---
Assessment and Plan Cultures: Blood culture MSSA COVID-19 pending A/P: 46-year-old male past medical history ESRD on home dialysis now with: #Acute sepsis: With leukocytosis, tachypnea. Likely secondary to gram-positive bacteremia, possible COVID-19. #Staph bacteremia: MSSA. Likely secondary to dialysis. #Pneumonia: Negative COVID-19 PCR. #ESRD on HD: Renally dose medications. Recs: -Stop ceftriaxone and vancomycin. -Start Ancef renally dosed -Obtain TTE, follow-up repeat blood cultures -If blood cultures remain persistently positive will check ultrasound of left AVG Thank you for the consult, we will continue to follow. Isidro Sprague MD [facility] ([facility] O: [phone] F: [phone] Subjective Date of service: 09/27/21 Principal diagnosis: ESRD Interval history: Afebrile, normal white count. Cultures with MSSA. Objective - Exam Narrative Exam: Physical exam deferred to reduce risk of transmission of COVID-19. Please refer to primary team's note. - Constitutional Vitals: Vital Signs Temp Pulse Resp BP Pulse Ox 98.8 F 81 15 120/73 100 09/27/21 12:00 09/27/21 15:10 09/27/21 14:30 09/27/21 15:10 09/27/21 14:30 Temperature -Last 24 Hours Temperature 98.8 F Temperature 98.7 F Temperature 98.9 F Temperature 98.8 F Temperature 98.3 F - Labs CBC & Chem 7: 09/27/21 04:06 09/27/21 04:06 Labs: Abnormal lab results 09/27/21 09/27/21 Range/Units 04:06 04:06 RBC 2.95 L (3.65-5.03) M/mm3 Hgb 8.3 L (11.8-15.2) gm/dl Hct 25.4 L (35.5-45.6) % RDW 17.6 H (13.2-15.2) % Chloride 93.3 L (98-107) mmol/L BUN 41 H (9-20) mg/dL Creatinine 7.6 H (0.8-1.3) mg/dL Glucose 148 H (75-100) mg/dL
[2021-09-27] MEDS ORDERED: PNEUMOCOCCAL 23 Valent 0.5 ML VIAL IM ONE (15:38)
[2021-09-27] MEDS: AZITHROMYCIN 250 MG TAB PO SCH (20:48)
[2021-09-28] MEDS: HYDROmorphone 0.5 MG/0.5 ML INJ IV PRN ×3 (00:13→23:47)
[2021-09-28 05:16] LABS: Calcium 8.8 mg/dL (8.4-10.2)
[2021-09-28] MEDS: hydrALAZINE 25 MG TAB PO SCH ×3 (05:39→21:10)
[2021-09-28] MEDS: SEVELAMER CARBONATE 800 MG TAB PO SCH ×4 (08:38→19:49)
[2021-09-28] MEDS: CHOLECALCIFEROL (VIT D3) 1000 UNIT (25 mcg) TAB PO SCH (09:51)
[2021-09-28] MEDS: NIFEdipine XL 90 MG TAB PO SCH (09:51)
[2021-09-28] MEDS: ZINC SULFATE 220 MG CAP PO SCH ×2 (09:51→23:45)
[2021-09-28] MEDS: carvediloL 25 MG TAB PO SCH ×2 (09:51→21:09)
[2021-09-28] MEDS: HEPARIN 5,000 UNIT/1 ML VIAL SUB-Q SCH ×2 (09:52→21:09)
[2021-09-28] MEDS: ASCORBIC ACID 500 MG TAB PO SCH ×2 (09:52→21:10)
--- NOTE | 2021-09-28 09:52 | Progress Note ---
Assessment and Plan Assessment and plan: 46 YO Male with ESRD on Home Dialysis, HUS presents to ED for evaluation. Patient is confused with diminished cognition at the time my evaluation is unable to provide history. Patient history taken from EMS staff, ED staff, as well as the patient's son who is at bedside during exam and interview. Patient sounds at the patient has been "under the weather". Over the past 3 days with persistent and worsening symptoms over the same timeframe. Patient signed acknowledges weakness, fatigue, shortness of breath, body aches, diminished sense of smell, diminished sense of taste. The patient awakened today from sleep at 1100 hrs. and complained of abdominal discomfort. Patient was also found to be confused. EMS was notified and upon arrival the patient was found to be in distress and subsequently transported to [facility] for further care and evaluation of the aforementioned symptoms. The patient was seen and evaluated in the emergency department. All lab and imaging studies reviewed. Patient was found to have a pulse oximetry of 88% on room air which is consistent with acute hypoxemic respiratory failure. Patient underwent chest x-ray and was found to have bilateral pneumonia complicated by sepsis. Patient admitted to [facility] and initiated on sepsis protocol as well as pneumonia protocol, in conjunction with coronavirus protocol. No reports of fever, chills, chest pain, palpitation, skin rash, recent ill contacts, or known exposure to COVID-19. No prior admission for review. No medication listed at time of admission for reconciliation. Advanced care planning conducted in ED. 09/25: Patient remains confused at this time. Work-up so far has been negative CT abdomen pelvis was negative except for small pleural effusion. Testicular ultrasound was reported negative. Still have not been able to speak to the family to obtain further information. Awaiting further cultures and work-up. We will obtain a CT head. We will obtain neurology evaluation if neuro status does not improve. Will reevaluate following HD. Patient at this time is tolerating bedside swallow evaluation so we will start on renal diet. 09/26: Awaiting Neurology eval, restart home meds, continue abx and follow cultures. Mental status showing some improvement but still intermittently confused. Stop IV steroids. Anemia showing some improvement without transfusion. Patient for another HD today. I discussed with the son extensively, patients last HD was on 09/20/21 before admission. Cultures growing staph aureus. Continue antibiotics await further instructions and adjustments by ID. He continues to complain of abdominal pain. Imaging studies and labs have been negative but today was noted to have green bile emesis. Will obtain abdominal ultrasound and also consult GI 09/27: Patient seen and examined, no fever today, repeat culture and Echo pending. Continue HD and Antibiotics 09/28: Patient continues to show remarkable improvements. Renal function stable with HD. He undergoes HD at home. He tells me that he is on the transplant list and his son will be done eating. At this time awaiting for culture at 48 back to normal if any growth. Echocardiogram shows preserved EF with no vegetations noted. If cleared by renal patient can be discharged tomorrow. (1) Sepsis secondary to pneumonia Current Visit: Yes Status: Acute Qualifiers: Acute respiratory failure type: with hypoxia Plan to address problem: Sepsis protocol: Chest x-ray, CBC, CMP, urinalysis, IV antibiotic therapy, IV fluid resuscitation therapy, maintain mean arterial pressure greater than or equal to 65, serial lactic acid level, monitor fluid balance, IV pressor support as clinically indicated. (2) Acute hypoxemic respiratory failure Current Visit: Yes Status: Acute Plan to address problem: Chest x-ray, supplemental oxygen, pulse oximetry, nebulizer therapy, pulmonary toilet. Will consider high flow supplemental oxygen if patient is unable to maintain pulse oximetry on supplemental oxygen via nasal cannula. (3) Pneumonia Current Visit: Yes Status: Acute Plan to address problem: Pneumonia protocol: Chest x-ray, CBC, CMP, IV antibiotic therapy, IV fluid resuscitation therapy, nebulized therapy, blood culture. (4) Anemia of chronic disease Current Visit: Yes Status: Acute Plan to address problem: Nephrology team consulted. Will consider packed red cell transfusion with dialysis. (5) End stage renal disease Current Visit: Yes Status: Acute Plan to address problem: Nephrology team consulted in ED. Dialysis as per renal team. (6) Toxic metabolic encephalopathy Current Visit: Yes Status: Acute Plan to address problem: Supportive care, treat sepsis, BMP, repeat BMP in a.m., neurochecks Will obtain CT of the head (7) Suspected 2019 novel coronavirus infection Current Visit: Yes Status: Acute Plan to address problem: Negative (8) Hyperkalemia likely related to renal failure (9) MSSA bacteremia (10) DVT prophylaxis Current Visit: Yes Status: Acute Plan to address problem: SCD to bilateral lower extremities while in bed, prophylactic anticoagulation. (11) Advance care planning Current Visit: Yes Status: Acute Plan to address problem: Disease education data, care plan discussed, diagnoses discussed, prognosis discussed, patient is full code. Patient family knowledges understanding and agreement with care plan, +30 minutes. History Interval history: Patient seen and examine, no further confusion noted. Hospitalist Physical - Physical exam Narrative exam: VITAL SIGNS: Reviewed. GENERAL: The patient appears normally developed, Vital signs as documented. HEAD: No signs of head trauma. EYES: Pupils are equal. Extraocular motions intact. EARS: Hearing grossly intact. MOUTH: Oropharynx is normal. NECK: No adenopathy, no JVD. CHEST: Chest with clear breath sounds bilaterally. No wheezes, rales, or rhonchi. CARDIAC: Regular rate and rhythm. S1 and S2, without murmurs, gallops, or rubs. VASCULAR: No Edema. Peripheral pulses normal and equal in all extremities. ABDOMEN: Soft, non tender and non distended. No rebound or guarding, and no masses palpated. Bowel Sounds normal. MUSCULOSKELETAL: Good range of motion of all major joints. Extremities without clubbing, cyanosis or edema. NEUROLOGIC EXAM: Awake and oriented x3. Follows all commands. No dysphagia noted PSYCHIATRIC: Flat affect SKIN: detail exam as documented in skin assessment - Constitutional Vitals: Temp Pulse Resp BP Pulse Ox 97.5 F L 81 27 H 127/82 93 09/28/21 04:00 09/28/21 06:00 09/28/21 06:00 09/28/21 06:00 09/28/21 06:00 General appearance: Present: mild distress HEART Score - HEART Score Troponin: Troponin T 0.083 ng/mL (0.00-0.029) H 09/24/21 16:12 Results - Labs CBC & Chem 7: 09/27/21 04:06 09/28/21 04:33 Labs: Laboratory Last Values WBC 9.1 K/mm3 (4.5-11.0) 09/27/21 04:06 RBC 2.95 M/mm3 (3.65-5.03) L 09/27/21 04:06 Hgb 8.3 gm/dl (11.8-15.2) L 09/27/21 04:06 Hct 25.4 % (35.5-45.6) L 09/27/21 04:06 MCV 86 fl (84-94) 09/27/21 04:06 MCH 28 pg (28-32) 09/27/21 04:06 MCHC 33 % (32-34) 09/27/21 04:06 RDW 17.6 % (13.2-15.2) H 09/27/21 04:06 Plt Count 200 K/mm3 (140-440) 09/27/21 04:06 Lymph % (Auto) 8.9 % (13.4-35.0) L 09/24/21 14:28 [place] % (Auto) 12.1 % (0.0-7.3) H 09/24/21 14:28 Eos % (Auto) 0.1 % (0.0-4.3) 09/24/21 14:28 Baso % (Auto) 0.4 % (0.0-1.8) 09/24/21 14:28 Lymph # (Auto) 1.1 K/mm3 (1.2-5.4) L 09/24/21 14:28 [place] # (Auto) 1.4 K/mm3 (0.0-0.8) H 09/24/21 14:28 Eos # (Auto) 0.0 K/mm3 (0.0-0.4) 09/24/21 14:28 Baso # (Auto) 0.1 K/mm3 (0.0-0.1) 09/24/21 14:28 Seg Neutrophils % 78.5 % (40.0-70.0) H 09/24/21 14:28 Seg Neutrophils # 9.3 K/mm3 (1.8-7.7) H 09/24/21 14:28 PT 15.3 Sec. (12.2-14.9) H 09/24/21 14:28 INR 1.09 (0.87-1.13) 09/24/21 14:28 ABG pH 7.399 pH Units (7.350-7.450) 09/25/21 07:52 ABG pCO2 38.5 mm Hg 09/25/21 07:52 ABG pO2 56.0 mm Hg (80.0-90.0) L 09/25/21 07:52 ABG HCO3 23.2 mmol/L (20.0-26.0) 09/25/21 07:52 ABG O2 Saturation 91.4 % (95.0-99.0) L 09/25/21 07:52 ABG O2 Content 9.3 (0.0-44) 09/25/21 07:52 ABG Base Excess -1.4 mmol/L (-2.0-3.0) 09/25/21 07:52 ABG Hemoglobin 7.3 gm/dl (14.0-18.0) L 09/25/21 07:52 ABG Carboxyhemoglobin 1.7 % (0.0-5.0) 09/25/21 07:52 ABG Methemoglobin 0.5 % (0.0-1.5) 09/25/21 07:52 Oxyhemoglobin 89.5 % (95.0-99.0) L 09/25/21 07:52 FiO2 21 % 09/25/21 07:52 Sodium 134 mmol/L (137-145) L 09/28/21 04:33 Potassium 3.6 mmol/L (3.6-5.0) 09/28/21 04:33 Chloride 91.1 mmol/L (98-107) L 09/28/21 04:33 Carbon Dioxide 25 mmol/L (22-30) 09/28/21 04:33 Anion Gap 22 mmol/L 09/28/21 04:33 BUN 57 mg/dL (9-20) H 09/28/21 04:33 Creatinine 10.7 mg/dL (0.8-1.3) H 09/28/21 04:33 Estimated GFR 6 ml/min 09/28/21 04:33 BUN/Creatinine Ratio 5 % 09/28/21 04:33 Glucose 105 mg/dL (75-100) H 09/28/21 04:33 POC Glucose 124 mg/dL (70-105) H 09/24/21 19:04 Lactic Acid 1.40 mmol/L (0.7-2.0) 09/24/21 20:48 Calcium 8.8 mg/dL (8.4-10.2) 09/28/21 04:33 Phosphorus 6.20 mg/dL (2.5-4.5) H 09/26/21 04:37 Magnesium 2.40 mg/dL (1.7-2.3) H 09/24/21 16:12 Total Bilirubin 0.50 mg/dL (0.1-1.2) 09/24/21 16:12 AST 15 units/L (5-40) 09/24/21 16:12 ALT 18 units/L (7-56) 09/24/21 16:12 Alkaline Phosphatase 125 units/L (35-129) 09/24/21 16:12 Total Creatine Kinase 63 units/L (55-170) 09/24/21 16:12 Troponin T 0.083 ng/mL (0.00-0.029) H 09/24/21 16:12 Total Protein 8.2 g/dL (6.3-8.2) 09/24/21 16:12 Albumin 3.7 g/dL (3.9-5) L 09/24/21 16:12 Albumin/Globulin Ratio 0.8 % 09/24/21 16:12 Triglycerides 169 mg/dL (2-149) H 09/24/21 16:12 Cholesterol 117 mg/dL (50-199) 09/24/21 16:12 LDL Cholesterol Direct 50 mg/dL (50-130) 09/24/21 16:12 HDL Cholesterol 23 mg/dL (40-59) L 09/24/21 16:12 Cholesterol/HDL Ratio 5.08 % 09/24/21 16:12 Lipase 14 units/L (13-60) 09/24/21 14:28 Nasal Screen MRSA (PCR) Negative (Negative) 09/25/21 Unknown Random Vancomycin 16.0 ug/mL (0-40.0) 09/26/21 09:40 Coronavirus (PCR) Negative (Negative) 09/25/21 Unknown Hepatitis A IgM Ab Non-reactive (NonReactive) 09/25/21 13:32 Hep Bs Antigen Non-reactive (Negative) 09/25/21 13:32 Hep B Core IgM Ab Non-reactive (NonReactive) 09/25/21 13:32 Hepatitis C Antibody Non-reactive (NonReactive) 09/25/21 13:32 Microbiology: Microbiology 09/24/21 17:50 Peripheral/Venous Blood Culture - Preliminary Staphylococcus Aureus 09/26/21 15:46 Peripheral/Venous Blood Culture - Preliminary NO GROWTH AFTER 24 HOURS 09/26/21 15:46 Peripheral/Venous Blood Culture - Preliminary NO GROWTH AFTER 24 HOURS 09/24/21 17:50 Peripheral/Venous Blood Culture - Preliminary Staphylococcus Aureus Active Medications - Current Medications Current Medications: Generic Name Dose Route Start Last Admin Trade Name Freq PRN Reason Stop Dose Admin Acetaminophen 650 mg 09/24/21 19:31 09/25/21 11:10 Acetaminophen 325 Mg Tab PO 650 mg Q6H PRN Administration Pain MILD(1-3)/Fever >100.5/GARCIA Albuterol 2.5 mg 09/24/21 19:31 Albuterol 2.5 Mg/3 Ml Nebu IH Q3HRT PRN Shortness Of Breath Ascorbic Acid 500 mg 09/24/21 22:00 09/27/21 21:59 Ascorbic Acid 500 Mg Tab PO 500 mg BID ANTHONY Administration Azithromycin 500 mg 09/26/21 20:00 09/27/21 20:48 Azithromycin 250 Mg Tab PO 09/29/21 20:01 500 mg Q24H ANTHONY Administration Protocol Carvedilol 25 mg 09/26/21 10:00 09/27/21 21:59 Carvedilol 25 Mg Tab PO 25 mg Q12HR ANTHONY Administration Cholecalciferol 1,000 unit 09/27/21 10:00 09/27/21 10:30 Cholecalciferol (Vit D3) 1000 Unit (25 Mcg) Tab PO 1,000 unit QDAY ANTHONY Administration Cyclobenzaprine HCl 10 mg 09/26/21 22:00 09/26/21 22:38 Cyclobenzaprine 10 Mg Tab PO 10 mg QHS PRN Administration Sleep Epoetin Stephen-epbx 20,000 unit 09/26/21 12:22 Epoetin Stephen-Epbx 20,000 Unit/1 Ml Vial IV PRUDENCE PRN hemodialysis Heparin Sodium (Porcine) 5,000 unit 09/24/21 22:00 09/27/21 21:59 Heparin 5,000 Unit/1 Ml Vial SUB-Q 5,000 unit Q12HR ANTHONY Administration Hydralazine HCl 10 mg 09/26/21 00:19 09/26/21 05:45 Hydralazine 20 Mg/1 Ml Inj IV 10 mg Q4HR PRN Administration Increased Blood Pressure Hydralazine HCl 50 mg 09/26/21 14:00 09/28/21 05:39 Hydralazine 25 Mg Tab PO 50 mg Q8HR ANTHONY Administration Hydromorphone HCl 0.25 mg 09/24/21 19:31 09/24/21 19:55 Hydromorphone 0.5 Mg/0.5 Ml Inj IV 0.25 mg Q4H PRN Administration Pain, Moderate (4-6) Hydromorphone HCl 0.5 mg 09/25/21 11:00 09/28/21 00:13 Hydromorphone 0.5 Mg/0.5 Ml Inj IV 0.5 mg Q4H PRN Administration Pain , Severe (7-10) Cefazolin Sodium 2 gm/ Sodium 100 mls @ 200 mls/hr 09/28/21 18:00 Chloride IV Q24H ANTHONY Protocol Nifedipine 90 mg 09/26/21 10:00 09/27/21 10:30 Nifedipine Xl 90 Mg Tab PO 90 mg QDAY ANTHONY Administration Ondansetron HCl 4 mg 09/26/21 01:03 09/27/21 00:49 Ondansetron 4 Mg/2 Ml Inj IV 4 mg Q6H PRN Administration Nausea And Vomiting Oxycodone/Acetaminophen 1 tab 09/24/21 19:31 Oxycodone /Acetaminophen 5-325mg Tab PO Q6H PRN Pain, Moderate (4-6) Sevelamer Carbonate 800 mg 09/26/21 08:00 09/28/21 08:38 Sevelamer Carbonate 800 Mg Tab PO 800 mg TIDWM ANTHONY Administration Sodium Chloride 10 ml 09/24/21 22:00 09/27/21 21:59 Sodium Chloride 0.9% 10 Ml Flush Syringe IV 10 ml BID ANTHONY Administration Sodium Chloride 10 ml 09/24/21 19:31 Sodium Chloride 0.9% 10 Ml Flush Syringe IV PRN PRN LINE FLUSH Zinc Sulfate 220 mg 09/24/21 22:00 09/27/21 21:59 Zinc Sulfate 220 Mg Cap PO 220 mg BID ANTHONY Administration Nutrition/Malnutrition Assess - Dietary Evaluation Nutrition/Malnutrition Findings: Nutrition Notes Start: 09/25/21 17:29 Freq: Status: Active Protocol: Document 09/25/21 17:29 EVELIO (Rec: 09/25/21 17:52 EVELIO [id number]) Nutrition Notes 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 Current Diet Renal Diet (since D 09/25). Labs/Tests 09/24: Na 134, K 5.6, Cl 98.9, CO2 20, BUN 94, Crea 17.1, Glu 107, Mg 2.4. Pertinent Medications 09/25: Vit C, Vit D3, ZnSO4, others nutritionally unremarkable. 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 Weight Status Overweight Subjective/Other Information RD consult for skin risk assessment. No reports available on Pt's PO intake of meals at the time , will assess at F/U. Pt is on Nasal Cannula, O2 saturation @ 100%, according to Physical Assesment History notes. Pt has missing teeth, according to Physical Assesment History notes. Pt presents diarrhea, according to Physical Assesment History notes. Pt passed bedside Swallow evaluation on 09/25, according to Progress notes. Pt shows no signs of concern for skin risk at the time, according to Physical Assesment History notes. Percent of energy/protein needs met: Prescribed Renal Diet provides for energy/protein needs (2, 072 Kcal/77 g) during LOS. Burn Absent Trauma Absent GI Symptoms Diarrhea Food Allergy No Skin Integrity/Comment Assessment WNL. Minimum of two criteria No #1 Nutrition Diagnosis No nutrition diagnosis at this time Comments: Will assess Pt's PO intake of meals at F/U. Is patient on ventilator? No Is Patient Ambulatory and/or Out of Bed Yes REE-([facility]-ambulatory/OOB) [ 2422.784 [id number]] Kcal/Kg value to use for calculation 24 Approximate Energy Requirements Using 2232 kcal/Kg Calculation Used for Recommendations Kcal/kg Additional Notes Protein: >1.2 g/Kg ABW; >112 g /day. Fluids: 1 ml/Kcal, or as per MD. Nutrition Intervention Change Diet Order: Continue Renal Diet. Follow-Up By: 10/02/21 Additional Comments Continue monitoring food tolerance, %PO intake of meals , and BM.
--- NOTE | 2021-09-28 10:12 | Progress Note ---
Assessment and Plan Assessment and Plan 46 YO Male with ESRD on Home Dialysis, HUS presents to ED for evaluation. Patient is confused with diminished cognition at the time my evaluation is unable to provide history. Patient history taken from EMS staff, ED staff, as well as the patient's son who is at bedside during exam and interview. Patient sounds at the patient has been "under the weather". Over the past 3 days with persistent and worsening symptoms over the same timeframe. Patient signed acknowledges weakness, fatigue, shortness of breath, body aches, diminished sense of smell, diminished sense of taste. The patient awakened today from sleep at 1100 hrs. and complained of abdominal discomfort. Patient was also f ound to be confused. - Patient Problems # Acute Encephalopathy -resolved today -mostly related to underlying infection and or ESRD -CT brain is unremarkable -Cxy is remarkable for possible pneumonia bilateral -COVID-19 Is negative -Positive blood culture Gram positive cocci -Echo is Ef#55-60 % LVH, No vegetations -Supportive care, treat sepsis, BMP, repeat BMP in a.m., neurochecks # Sepsis -Sepsis protocol: Chest x-ray, CBC, CMP, urinalysis, IV antibiotic therapy, IV fluid resuscitation therapy, maintain mean arterial pressure greater than or equal to 65, serial lactic acid level, monitor fluid balance, IV pressor support as clinically indicated. # Acute hypoxemic respiratory failure -Chest x-ray, supplemental oxygen, pulse oximetry, nebulizer therapy, pulmonary toilet. Will consider high flow supplemental oxygen if patient is unable to maintain pulse oximetry on supplemental oxygen via nasal cannula. # Pneumonia -Pneumonia protocol: Chest x-ray, CBC, CMP, IV antibiotic therapy, IV fluid resuscitation therapy, nebulized therapy, blood culture. # Anemia of chronic disease -Nephrology team consulted. Will consider packed red cell transfusion with dialysis. # End stage renal disease -Nephrology team consulted in ED. Dialysis as per renal team. # DVT prophylaxis -SCD to bilateral lower extremities while in bed, prophylactic anticoagulation. PLAN 1-Treat underlying infection 2- Hemodialysis 3- Correct elctrolytes abnormalities 4- DVT prophylaxis 5- ID is following will follow Subjective Date of service: 09/28/21 Principal diagnosis: ESRD Interval history: More alert interactive Blood c/s is positive last 2 bottles positive for staph aureus ? had dialysis Creat--7.6-- today 10.7 Echo with EF#55-60% with LVH , no vegetation is noted Objective - Vital Sign Vital Signs - 12hr 09/27/21 09/27/21 09/27/21 22:30 23:00 23:01 Temperature Pulse Rate 83 81 83 Pulse Rate [ From Monitor] Respiratory 11 L 11 L 12 Rate Blood Pressure 121/78 126/82 126/82 O2 Sat by Pulse 96 98 Oximetry 09/27/21 09/28/21 09/28/21 23:30 00:00 00:30 Temperature 97.9 F Pulse Rate 80 79 86 Pulse Rate [ From Monitor] Respiratory 17 15 15 Rate Blood Pressure 132/87 127/83 126/85 O2 Sat by Pulse 94 96 97 Oximetry 09/28/21 09/28/21 09/28/21 01:00 01:30 02:00 Temperature Pulse Rate 87 90 75 Pulse Rate [ 72 From Monitor] Respiratory 16 16 16 Rate Blood Pressure 132/89 124/86 121/79 O2 Sat by Pulse 98 93 94 Oximetry 09/28/21 09/28/21 09/28/21 02:30 03:00 03:30 Temperature Pulse Rate 83 83 82 Pulse Rate [ From Monitor] Respiratory 15 16 15 Rate Blood Pressure 108/65 109/66 113/68 O2 Sat by Pulse 93 93 Oximetry 09/28/21 09/28/21 09/28/21 04:00 04:30 05:00 Temperature 97.5 F L Pulse Rate 79 79 81 Pulse Rate [ 79 From Monitor] Respiratory 17 16 13 Rate Blood Pressure 106/67 109/66 128/81 O2 Sat by Pulse 93 91 94 Oximetry 09/28/21 09/28/21 09/28/21 05:30 06:00 09:51 Temperature Pulse Rate 84 81 90 Pulse Rate [ From Monitor] Respiratory 15 27 H Rate Blood Pressure 123/82 127/82 144/95 O2 Sat by Pulse 94 93 Oximetry - General Apperance Constitutional: comfortable - EENT EENT: PERRL, mucous membranes moist - Respiratory Respiratory: lungs clear, rhonchi - Cardiovascular Cardiovascular: regular rate, normal S1, normal S2 Extremities: no peripheral edema bilat, no clubbing, cyanosis - Gastrointestinal Gastrointestinal: normoactive bowel sounds - Integumentary Integumentary: normal - Neurologic Cranial nerve examination: PERRL, EOMI, intact Speech examination: intact Detailed motor examination: grossly full strength in - Laboratory Findings CBC and BMP: 09/27/21 04:06 09/28/21 04:33 Abnormal Lab Findings: Abnormal Labs 09/24/21 09/24/21 09/24/21 14:28 14:28 14:28 WBC 11.9 H RBC 2.47 L Hgb 6.9 L Hct 21.1 L RDW 17.1 H Lymph % (Auto) 8.9 L [place] % (Auto) 12.1 H Lymph # (Auto) 1.1 L [place] # (Auto) 1.4 H Seg Neutrophils % 78.5 H Seg Neutrophils # 9.3 H PT 15.3 H ABG pO2 ABG O2 Saturation ABG Hemoglobin Oxyhemoglobin Sodium 134 L Potassium 5.4 H Chloride 91.9 L Carbon Dioxide BUN 95 H Creatinine 15.8 H Glucose POC Glucose Phosphorus Magnesium Troponin T Albumin Triglycerides HDL Cholesterol 09/24/21 09/24/21 09/25/21 16:12 19:04 07:52 WBC RBC Hgb Hct RDW Lymph % (Auto) [place] % (Auto) Lymph # (Auto) [place] # (Auto) Seg Neutrophils % Seg Neutrophils # PT ABG pO2 56.0 L ABG O2 Saturation 91.4 L ABG Hemoglobin 7.3 L Oxyhemoglobin 89.5 L Sodium 134 L Potassium 5.6 H Chloride 89.9 L Carbon Dioxide 20 L BUN 94 H Creatinine 17.1 H Glucose 107 H POC Glucose 124 H Phosphorus Magnesium 2.40 H Troponin T 0.083 H Albumin 3.7 L Triglycerides 169 H HDL Cholesterol 23 L 09/26/21 09/26/21 09/27/21 04:37 04:37 04:06 WBC RBC 2.76 L 2.95 L Hgb 7.8 L 8.3 L Hct 23.2 L 25.4 L RDW 17.1 H 17.6 H Lymph % (Auto) [place] % (Auto) Lymph # (Auto) [place] # (Auto) Seg Neutrophils % Seg Neutrophils # PT ABG pO2 ABG O2 Saturation ABG Hemoglobin Oxyhemoglobin Sodium Potassium 5.1 H Chloride 96.3 L Carbon Dioxide BUN 51 H Creatinine 9.5 H Glucose 176 H POC Glucose Phosphorus 6.20 H Magnesium Troponin T Albumin Triglycerides HDL Cholesterol 09/27/21 09/28/21 04:06 04:33 WBC RBC Hgb Hct RDW Lymph % (Auto) [place] % (Auto) Lymph # (Auto) [place] # (Auto) Seg Neutrophils % Seg Neutrophils # PT ABG pO2 ABG O2 Saturation ABG Hemoglobin Oxyhemoglobin Sodium 134 L Potassium Chloride 93.3 L 91.1 L Carbon Dioxide BUN 41 H 57 H Creatinine 7.6 H 10.7 H Glucose 148 H 105 H POC Glucose Phosphorus Magnesium Troponin T Albumin Triglycerides HDL Cholesterol
--- NOTE | 2021-09-28 14:28 | Progress Note ---
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 Villegas Subjective Date of service: 09/28/21 Principal diagnosis: ESRD Interval history: Pt seen in bed, states he has some shortness of breath, no acute distress. Pt about to start HD at bedside, transferred to 459 Objective - Vital Signs Vital signs: Vital Signs - 12hr 09/28/21 09/28/21 09/28/21 02:30 03:00 03:30 Temperature Pulse Rate 83 83 82 Pulse Rate [ From Monitor] Respiratory 15 16 15 Rate Blood Pressure 108/65 109/66 113/68 O2 Sat by Pulse 93 93 Oximetry 09/28/21 09/28/21 09/28/21 04:00 04:30 05:00 Temperature 97.5 F L Pulse Rate 79 79 81 Pulse Rate [ 79 From Monitor] Respiratory 17 16 13 Rate Blood Pressure 106/67 109/66 128/81 O2 Sat by Pulse 93 91 94 Oximetry 09/28/21 09/28/21 09/28/21 05:30 06:00 06:30 Temperature Pulse Rate 84 81 77 Pulse Rate [ From Monitor] Respiratory 15 27 H 19 Rate Blood Pressure 123/82 127/82 133/83 O2 Sat by Pulse 94 93 93 Oximetry 09/28/21 09/28/21 09/28/21 07:00 07:30 08:00 Temperature 98.0 F Pulse Rate 81 84 85 Pulse Rate [ From Monitor] Respiratory 17 14 16 Rate Blood Pressure 129/84 127/84 131/86 O2 Sat by Pulse 92 96 96 Oximetry 09/28/21 09/28/21 09/28/21 08:30 09:00 09:30 Temperature Pulse Rate 88 89 86 Pulse Rate [ 77 From Monitor] Respiratory 16 18 21 Rate Blood Pressure 136/89 138/95 145/92 O2 Sat by Pulse 94 98 90 Oximetry 09/28/21 09/28/21 09/28/21 09:51 10:00 10:30 Temperature Pulse Rate 90 77 78 Pulse Rate [ From Monitor] Respiratory 33 H 20 Rate Blood Pressure 144/95 141/95 141/95 O2 Sat by Pulse 96 100 Oximetry 09/28/21 09/28/21 09/28/21 11:00 11:30 12:00 Temperature 98.7 F Pulse Rate 74 75 76 Pulse Rate [ From Monitor] Respiratory 16 15 17 Rate Blood Pressure 139/93 132/88 123/79 O2 Sat by Pulse 98 95 95 Oximetry 09/28/21 09/28/21 12:30 13:32 Temperature Pulse Rate 87 85 Pulse Rate [ From Monitor] Respiratory 16 Rate Blood Pressure 142/105 130/85 O2 Sat by Pulse Oximetry - General Appearance General appearance: well-developed EENT: ATNC Respiratory: Present: Decreased Breath Sounds Cardiology: regular, S1S2, other (ACCESS: Left AVF) Gastrointestinal: normoactive bowel sounds Integumentary: warm and dry Neurologic: alert and oriented x3 Musculoskeletal: other (trace edema to BLE) Psychiatric: cooperative - Lab 09/27/21 04:06 09/28/21 04:33 Most recent lab results ABG pH 7.399 pH Units (7.350-7.450) 09/25/21 07:52 ABG pCO2 38.5 mm Hg 09/25/21 07:52 ABG pO2 56.0 mm Hg (80.0-90.0) L 09/25/21 07:52 ABG HCO3 23.2 mmol/L (20.0-26.0) 09/25/21 07:52 ABG O2 Saturation 91.4 % (95.0-99.0) L 09/25/21 07:52 Calcium 8.8 mg/dL (8.4-10.2) 09/28/21 04:33 Phosphorus 6.20 mg/dL (2.5-4.5) H 09/26/21 04:37 Magnesium 2.40 mg/dL (1.7-2.3) H 09/24/21 16:12 Medications & Allergies - Medications Allergies/Adverse Reactions: Allergies No Known Allergies Allergy (Unverified 09/24/21 12:37) Home Medications: Home Medications Medication Instructions Recorded Confirmed Last Taken Type Acetaminophen with Codeine 1 each PO Q8H PRN 09/25/21 09/25/21 09/16/21 21:00 History [Acetaminophen-Cod #3 Tablet] Cyclobenzaprine [Flexeril] 10 mg PO QHS PRN 09/25/21 09/25/21 09/23/21 21:00 History NIFEdipine [Nifedipine ER] 90 mg PO QDAY 09/25/21 09/25/21 09/23/21 09:00 History Sevelamer Carbonate [Renvela] 800 mg PO TIDWM 09/25/21 09/25/21 09/24/21 17:00 History Zolpidem Tartrate [Zolpidem 12.5 mg PO PRN PRN 09/25/21 09/25/21 09/23/21 21:00 History Tartrate ER] carvediloL 25 mg PO BID 09/25/21 09/25/21 09/23/21 21:00 History Active Medications: Generic Name Dose Route Start Last Admin Trade Name Freq PRN Reason Stop Dose Admin Acetaminophen 650 mg 09/24/21 19:31 09/25/21 11:10 Acetaminophen 325 Mg Tab PO 650 mg Q6H PRN Administration Pain MILD(1-3)/Fever >100.5/GARCIA Albuterol 2.5 mg 09/24/21 19:31 Albuterol 2.5 Mg/3 Ml Nebu IH Q3HRT PRN Shortness Of Breath Ascorbic Acid 500 mg 09/24/21 22:00 09/28/21 09:52 Ascorbic Acid 500 Mg Tab PO 500 mg BID ANTHONY Administration Azithromycin 500 mg 09/26/21 20:00 09/27/21 20:48 Azithromycin 250 Mg Tab PO 09/29/21 20:01 500 mg Q24H ANTHONY Administration Protocol Carvedilol 25 mg 09/26/21 10:00 09/28/21 09:51 Carvedilol 25 Mg Tab PO 25 mg Q12HR ANTHONY Administration Cholecalciferol 1,000 unit 09/27/21 10:00 09/28/21 09:51 Cholecalciferol (Vit D3) 1000 Unit (25 Mcg) Tab PO 1,000 unit QDAY ANTHONY Administration Cyclobenzaprine HCl 10 mg 09/26/21 22:00 09/26/21 22:38 Cyclobenzaprine 10 Mg Tab PO 10 mg QHS PRN Administration Sleep Epoetin Stephen-epbx 20,000 unit 09/26/21 12:22 Epoetin Stephen-Epbx 20,000 Unit/1 Ml Vial IV PRUDENCE PRN hemodialysis Heparin Sodium (Porcine) 5,000 unit 09/24/21 22:00 09/28/21 09:52 Heparin 5,000 Unit/1 Ml Vial SUB-Q 5,000 unit Q12HR ANTHONY Administration Hydralazine HCl 10 mg 09/26/21 00:19 09/26/21 05:45 Hydralazine 20 Mg/1 Ml Inj IV 10 mg Q4HR PRN Administration Increased Blood Pressure Hydralazine HCl 50 mg 09/26/21 14:00 09/28/21 13:32 Hydralazine 25 Mg Tab PO 50 mg Q8HR ANTHONY Administration Hydromorphone HCl 0.25 mg 09/24/21 19:31 09/24/21 19:55 Hydromorphone 0.5 Mg/0.5 Ml Inj IV 0.25 mg Q4H PRN Administration Pain, Moderate (4-6) Hydromorphone HCl 0.5 mg 09/25/21 11:00 09/28/21 00:13 Hydromorphone 0.5 Mg/0.5 Ml Inj IV 0.5 mg Q4H PRN Administration Pain , Severe (7-10) Cefazolin Sodium 2 gm/ Sodium 100 mls @ 200 mls/hr 09/28/21 18:00 Chloride IV Q24H [facility] Protocol Nifedipine 90 mg 09/26/21 10:00 09/28/21 09:51 Nifedipine Xl 90 Mg Tab PO 90 mg QDAY [facility] Administration Ondansetron HCl 4 mg 09/26/21 01:03 09/27/21 00:49 Ondansetron 4 Mg/2 Ml Inj IV 4 mg Q6H PRN Administration Nausea And Vomiting Oxycodone/Acetaminophen 1 tab 09/24/21 19:31 Oxycodone /Acetaminophen 5-325mg Tab PO Q6H PRN Pain, Moderate (4-6) Sevelamer Carbonate 800 mg 09/26/21 08:00 09/28/21 12:02 Sevelamer Carbonate 800 Mg Tab PO 800 mg TIDWM ANTHONY Administration Sodium Chloride 10 ml 09/24/21 22:00 09/28/21 09:52 Sodium Chloride 0.9% 10 Ml Flush Syringe IV 10 ml BID ANTHONY Administration Sodium Chloride 10 ml 09/24/21 19:31 Sodium Chloride 0.9% 10 Ml Flush Syringe IV PRN PRN LINE FLUSH Zinc Sulfate 220 mg 09/24/21 22:00 09/28/21 09:51 Zinc Sulfate 220 Mg Cap PO 220 mg BID ANTHONY Administration
[2021-09-28] MEDS: AZITHROMYCIN 250 MG TAB PO SCH (21:10)
[2021-09-29] MEDS: hydrALAZINE 25 MG TAB PO SCH ×3 (05:14→23:44)
--- NOTE | 2021-09-29 08:42 | Discharge Summary ---
Providers - Providers Date of Admission: 09/24/21 19:31 Attending physician: FARNAZ SCHAFFER MD 09/24/21 19:30 Consult to Physician [CONS] Urgent Comment: Consulting Provider: ANGELA NG Physician Instructions: Reason For Exam: ESRD/hyperkalemia 09/24/21 19:34 Consult to Physician [CONS] Routine Comment: Consulting Provider: GABRIEL ORTIZ Physician Instructions: Reason For Exam: PUI 09/25/21 13:22 Consult to Physician [CONS] Routine Comment: left message on drJaydaphone/carmen Consulting Provider: LEIGHTON CHERY Physician Instructions: Reason For Exam: Acute Metabolic Encephalopathy 09/26/21 08:28 Consult to Physician [CONS] Routine Comment: called office/ doug Consulting Provider: JAMES CULP Physician Instructions: Reason For Exam: abdominal pain Primary care physician: MASTER GLAZIER Hospitalization Reason for admission: Sepsis Condition: Stable Hospital course: 46 YO Male with ESRD on Home Dialysis, HUS presents to ED for evaluation. Patient is confused with diminished cognition at the time my evaluation is unable to provide history. Patient history taken from EMS staff, ED staff, as w ell as the patient's son who is at bedside during exam and interview. Patient sounds at the patient has been "under the weather". Over the past 3 days with persistent and worsening symptoms over the same timeframe. Patient signed acknowledges weakness, fatigue, shortness of breath, body aches, diminished sense of smell, diminished sense of taste. The patient awakened today from sleep at 1100 hrs. and complained of abdominal discomfort. Patient was also found to be confused. EMS was notified and upon arrival the patient was found to be in distress and subsequently transported to [facility] for further care and evaluation of the aforementioned symptoms. The patient was seen and evaluated in the emergency department. All lab and imaging studies reviewed. Patient was found to have a pulse oximetry of 88% on room air which is consistent with acute hypoxemic respiratory failure. Patient underwent chest x-ray and was found to have bilateral pneumonia complicated by sepsis. Patient admitted to [facility] and initiated on sepsis protocol as well as pneumonia protocol, in conjunction with coronavirus protocol. No reports of fever, chills, chest pain, palpitation, skin rash, recent ill contacts, or known exposure to COVID-19. No prior admission for review. No medication listed at time of admission for reconciliation. Advanced care planning conducted in ED. 09/25: Patient remains confused at this time. Work-up so far has been negative CT abdomen pelvis was negative except for small pleural effusion. Testicular ultrasound was reported negative. Still have not been able to speak to the family to obtain further information. Awaiting further cultures and work-up. We will obtain a CT head. We will obtain neurology evaluation if neuro status does not improve. Will reevaluate following HD. Patient at this time is tolerating bedside swallow evaluation so we will start on renal diet. 09/26: Awaiting Neurology eval, restart home meds, continue abx and follow cultures. Mental status showing some improvement but still intermittently confused. Stop IV steroids. Anemia showing some improvement without transfusion. Patient for another HD today. I discussed with the son extensively, patients last HD was on 09/20/21 before admission. Cultures growing staph aureus. Continue antibiotics await further instructions and adjustments by ID. He continues to complain of abdominal pain. Imaging studies and labs have been negative but today was noted to have green bile emesis. Will obtain abdominal ultrasound and also consult GI 09/27: Patient seen and examined, no fever today, repeat culture and Echo pending. Continue HD and Antibiotics 09/28: Patient continues to show remarkable improvements. Renal function stable with HD. He undergoes HD at home. He tells me that he is on the transplant list and his son will be done eating. At this time awaiting for culture at 48 back to normal if any growth. Echocardiogram shows preserved EF with no vegetations noted. If cleared by renal patient can be discharged tomorrow. 09/29: Patient today seen and evaluated remains afebrile. Discussed with infectious disease patient will need IV antibiotic and this is being arranged by them. Extensive counseling was provided to the patient to have close discussion with his ditch digger about his continued home HD. He is on a transplant list according to him. Documentation per ditch digger shows that the patient had a history of failed DD and LAD transplants in the past. Also has a history of HUS. He tells me that his son is going to be his daughter at this time. (1) Sepsis secondary to pneumonia Current Visit: Yes Status: Acute Qualifiers: Acute respiratory failure type: with hypoxia Plan to address problem: Sepsis protocol: Chest x-ray, CBC, CMP, urinalysis, IV antibiotic therapy, IV fluid resuscitation therapy, maintain mean arterial pressure greater than or equal to 65, serial lactic acid level, monitor fluid balance, IV pressor support as clinically indicated. (2) Acute hypoxemic respiratory failure Current Visit: Yes Status: Acute Plan to address problem: Chest x-ray, supplemental oxygen, pulse oximetry, nebulizer therapy, pulmonary toilet. Will consider high flow supplemental oxygen if patient is unable to maintain pulse oximetry on supplemental oxygen via nasal cannula. (3) Pneumonia Current Visit: Yes Status: Acute Plan to address problem: Pneumonia protocol: Chest x-ray, CBC, CMP, IV antibiotic therapy, IV fluid resuscitation therapy, nebulized therapy, blood culture. (4) Anemia of chronic disease Current Visit: Yes Status: Acute Plan to address problem: Nephrology team consulted. Will consider packed red cell transfusion with dialysis. (5) End stage renal disease Current Visit: Yes Status: Acute Plan to address problem: Nephrology team consulted in ED. Dialysis as per renal team. (6) Toxic metabolic encephalopathy Current Visit: Yes Status: Acute Plan to address problem: Supportive care, treat sepsis, BMP, repeat BMP in a.m., neurochecks Will obtain CT of the head (7) Suspected 2019 novel coronavirus infection Current Visit: Yes Status: Acute Plan to address problem: Negative (8) Hyperkalemia likely related to renal failure (9) anemia of chronic disease related to end-stage renal disease (10) MSSA bacteremia (11) Hyperphosphatemia Disposition: 01 HOME / SELF CARE / HOMELESS Final Discharge Diagnosis (Prints w/discharge instructions): (1) Sepsis secondary to pneumonia. (2) Acute hypoxemic respiratory failure. (3) Pneumonia. (4) Anemia of chronic disease. (5) End stage renal disease Time spent for discharge: 35 minutes Core Measure Documentation - Palliative Care Palliative Care/ Comfort Measures: Not Applicable - Core Measures Any of the following diagnoses?: none Exam - Physical Exam Narrative exam: VITAL SIGNS: Reviewed. GENERAL: The patient appears normally developed, Vital signs as documented. HEAD: No signs of head trauma. EYES: Pupils are equal. Extraocular motions intact. EARS: Hearing grossly intact. MOUTH: Oropharynx is normal. NECK: No adenopathy, no JVD. CHEST: Chest with clear breath sounds bilaterally. No wheezes, rales, or rhonchi. CARDIAC: Regular rate and rhythm. S1 and S2, without murmurs, gallops, or rubs. VASCULAR: No Edema. Peripheral pulses normal and equal in all extremities. ABDOMEN: Soft, non tender and non distended. No rebound or guarding, and no masses palpated. Bowel Sounds normal. MUSCULOSKELETAL: Good range of motion of all major joints. Extremities without clubbing, cyanosis or edema. NEUROLOGIC EXAM: Awake and oriented x3. Follows all commands. No dysphagia noted PSYCHIATRIC: Flat affect SKIN: detail exam as documented in skin assessment - Constitutional Vitals: Temp Pulse Resp BP Pulse Ox 98.9 F 89 18 149/109 97 09/29/21 05:07 09/29/21 05:07 09/29/21 05:07 09/29/21 05:14 09/29/21 05:07 Plan Activity: advance as tolerated, fall precautions Diet: renal Special Instructions: restrict fluid intake to (1 liter a day) Follow up with: GABRIEL ORTIZ MD [Staff Physician] - 7 Days ANGELA NG MD [Staff Physician] - 7 Days BRITTANIE TRIANA MD [Staff Physician] - 7 Days Prescriptions: Acetaminophen with Codeine [Acetaminophen-Cod #3 Tablet] 1 each PO Q8H PRN #10 PRN Reason: Pain , Severe (7-10) carvediloL 25 mg PO BID #60 NIFEdipine [Nifedipine ER] 90 mg PO QDAY #30 Sevelamer Carbonate [Renvela] 800 mg PO TIDWM #30
--- NOTE | 2021-09-29 09:47 | Progress Note ---
Assessment and Plan Assessment and Plan 46 YO Male with ESRD on Home Dialysis, HUS presents to ED for evaluation. Patient is confused with diminished cognition at the time my evaluation is unable to provide history. Patient history taken from EMS staff, ED staff, as well as the patient's son who is at bedside during exam and interview. Patient sounds at the patient has been "under the weather". Over the past 3 days with persistent and worsening symptoms over the same timeframe. Patient signed acknowledges weakness, fatigue, shortness of breath, body aches, diminished sense of smell, diminished sense of taste. The patient awakened today from sleep at 1100 hrs. and complained of abdominal discomfort. Patient was also f ound to be confused. - Patient Problems # Acute Encephalopathy -resolved today -mostly related to underlying infection and or ESRD -CT brain is unremarkable -Cxy is remarkable for possible pneumonia bilateral -COVID-19 Is negative -Positive blood culture Gram positive cocci -Echo is Ef#55-60 % LVH, No vegetations -Supportive care, treat sepsis, BMP, repeat BMP in a.m., neurochecks # Sepsis -Sepsis protocol: Chest x-ray, CBC, CMP, urinalysis, IV antibiotic therapy, IV fluid resuscitation therapy, maintain mean arterial pressure greater than or equal to 65, serial lactic acid level, monitor fluid balance, IV pressor support as clinically indicated. # Acute hypoxemic respiratory failure -Chest x-ray, supplemental oxygen, pulse oximetry, nebulizer therapy, pulmonary toilet. Will consider high flow supplemental oxygen if patient is unable to maintain pulse oximetry on supplemental oxygen via nasal cannula. # Pneumonia -Pneumonia protocol: Chest x-ray, CBC, CMP, IV antibiotic therapy, IV fluid resuscitation therapy, nebulized therapy, blood culture. # Anemia of chronic disease -Nephrology team consulted. Will consider packed red cell transfusion with dialysis. # End stage renal disease -Nephrology team consulted in ED. Dialysis as per renal team. # DVT prophylaxis -SCD to bilateral lower extremities while in bed, prophylactic anticoagulation. PLAN 1-Treat underlying infection 2- Hemodialysis 3- Correct elctrolytes abnormalities 4- DVT prophylaxis 5- ID is following will sign off Subjective Date of service: 09/29/21 Principal diagnosis: ESRD Interval history: More alert interactive Blood c/s is positive last 2 bottles positive for staph aureus ? had dialysis Creat--7.6-- today 10.7 Echo with EF#55-60% with LVH , no vegetation is noted Objective - Vital Sign Vital Signs - 12hr 09/28/21 09/28/21 09/29/21 22:00 23:52 00:01 Temperature 98.0 F Pulse Rate 88 70 Respiratory 50 H 18 Rate Respiratory 20 Rate [Back] Blood Pressure 150/99 O2 Sat by Pulse 100 Oximetry 09/29/21 09/29/21 05:07 05:14 Temperature 98.9 F Pulse Rate 89 Respiratory 18 Rate Respiratory Rate [Back] Blood Pressure 149/109 149/109 O2 Sat by Pulse 97 Oximetry - General Apperance Constitutional: comfortable - EENT EENT: PERRL, mucous membranes moist - Respiratory Respiratory: lungs clear, rhonchi - Cardiovascular Cardiovascular: regular rate, normal S1, normal S2 Extremities: no peripheral edema bilat, no clubbing, cyanosis - Gastrointestinal Gastrointestinal: normoactive bowel sounds - Integumentary Integumentary: normal - Neurologic Cranial nerve examination: PERRL, intact Speech examination: intact Detailed motor examination: grossly full strength in - Laboratory Findings CBC and BMP: 09/27/21 04:06 09/28/21 04:33 Abnormal Lab Findings: Abnormal Labs 09/24/21 09/24/21 09/24/21 14:28 14:28 14:28 WBC 11.9 H RBC 2.47 L Hgb 6.9 L Hct 21.1 L RDW 17.1 H Lymph % (Auto) 8.9 L [place] % (Auto) 12.1 H Lymph # (Auto) 1.1 L [place] # (Auto) 1.4 H Seg Neutrophils % 78.5 H Seg Neutrophils # 9.3 H PT 15.3 H ABG pO2 ABG O2 Saturation ABG Hemoglobin Oxyhemoglobin Sodium 134 L Potassium 5.4 H Chloride 91.9 L Carbon Dioxide BUN 95 H Creatinine 15.8 H Glucose POC Glucose Phosphorus Magnesium Troponin T Albumin Triglycerides HDL Cholesterol 09/24/21 09/24/21 09/25/21 16:12 19:04 07:52 WBC RBC Hgb Hct RDW Lymph % (Auto) [place] % (Auto) Lymph # (Auto) [place] # (Auto) Seg Neutrophils % Seg Neutrophils # PT ABG pO2 56.0 L ABG O2 Saturation 91.4 L ABG Hemoglobin 7.3 L Oxyhemoglobin 89.5 L Sodium 134 L Potassium 5.6 H Chloride 89.9 L Carbon Dioxide 20 L BUN 94 H Creatinine 17.1 H Glucose 107 H POC Glucose 124 H Phosphorus Magnesium 2.40 H Troponin T 0.083 H Albumin 3.7 L Triglycerides 169 H HDL Cholesterol 23 L 09/26/21 09/26/21 09/27/21 04:37 04:37 04:06 WBC RBC 2.76 L 2.95 L Hgb 7.8 L 8.3 L Hct 23.2 L 25.4 L RDW 17.1 H 17.6 H Lymph % (Auto) [place] % (Auto) Lymph # (Auto) [place] # (Auto) Seg Neutrophils % Seg Neutrophils # PT ABG pO2 ABG O2 Saturation ABG Hemoglobin Oxyhemoglobin Sodium Potassium 5.1 H Chloride 96.3 L Carbon Dioxide BUN 51 H Creatinine 9.5 H Glucose 176 H POC Glucose Phosphorus 6.20 H Magnesium Troponin T Albumin Triglycerides HDL Cholesterol 09/27/21 09/28/21 04:06 04:33 WBC RBC Hgb Hct RDW Lymph % (Auto) [place] % (Auto) Lymph # (Auto) [place] # (Auto) Seg Neutrophils % Seg Neutrophils # PT ABG pO2 ABG O2 Saturation ABG Hemoglobin Oxyhemoglobin Sodium 134 L Potassium Chloride 93.3 L 91.1 L Carbon Dioxide BUN 41 H 57 H Creatinine 7.6 H 10.7 H Glucose 148 H 105 H POC Glucose Phosphorus Magnesium Troponin T Albumin Triglycerides HDL Cholesterol
[2021-09-29] MEDS: ZINC SULFATE 220 MG CAP PO SCH ×2 (10:29→23:43)
[2021-09-29] MEDS: NIFEdipine XL 90 MG TAB PO SCH (10:29)
[2021-09-29] MEDS: ASCORBIC ACID 500 MG TAB PO SCH ×2 (10:29→23:44)
[2021-09-29] MEDS: carvediloL 25 MG TAB PO SCH ×2 (10:29→23:44)
[2021-09-29] MEDS: SEVELAMER CARBONATE 800 MG TAB PO SCH ×3 (10:29→16:21)
[2021-09-29] MEDS: HEPARIN 5,000 UNIT/1 ML VIAL SUB-Q SCH ×2 (10:29→23:44)
[2021-09-29] MEDS: CHOLECALCIFEROL (VIT D3) 1000 UNIT (25 mcg) TAB PO SCH (10:29)
--- NOTE | 2021-09-29 15:07 | Progress Note ---
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 Villegas Subjective Date of service: 09/29/21 Principal diagnosis: ESRD Interval history: Pt seen in bed, states he feels good today and is supposed to get discharged home on IV Abx Objective - Vital Signs Vital signs: Vital Signs - 12hr 09/29/21 09/29/21 09/29/21 05:07 05:14 10:00 Temperature 98.9 F Pulse Rate 89 78 Respiratory 18 Rate Respiratory 20 Rate [Back] Blood Pressure 149/109 149/109 O2 Sat by Pulse 97 97 Oximetry 09/29/21 11:01 Temperature 97.7 F Pulse Rate 78 Respiratory 18 Rate Respiratory Rate [Back] Blood Pressure 171/114 O2 Sat by Pulse 96 Oximetry - General Appearance General appearance: well-developed EENT: ATNC Neck: no JVD Respiratory: Present: Decreased Breath Sounds Cardiology: regular, S1S2, other (ACCESS: Left AVF + thrill and bruit) Gastrointestinal: normoactive bowel sounds, no tenderness Integumentary: warm and dry Neurologic: alert and oriented x3 Musculoskeletal: other (no edema to BLE) Psychiatric: cooperative - Lab 09/27/21 04:06 09/28/21 04:33 Most recent lab results ABG pH 7.399 pH Units (7.350-7.450) 09/25/21 07:52 ABG pCO2 38.5 mm Hg 09/25/21 07:52 ABG pO2 56.0 mm Hg (80.0-90.0) L 09/25/21 07:52 ABG HCO3 23.2 mmol/L (20.0-26.0) 09/25/21 07:52 ABG O2 Saturation 91.4 % (95.0-99.0) L 09/25/21 07:52 Calcium 8.8 mg/dL (8.4-10.2) 09/28/21 04:33 Phosphorus 6.20 mg/dL (2.5-4.5) H 09/26/21 04:37 Magnesium 2.40 mg/dL (1.7-2.3) H 09/24/21 16:12 Medications & Allergies - Medications Allergies/Adverse Reactions: Allergies No Known Allergies Allergy (Unverified 09/24/21 12:37) Home Medications: Home Medications Medication Instructions Recorded Confirmed Last Taken Type Cyclobenzaprine [Flexeril 10 MG 10 mg PO QHS PRN 09/25/21 09/25/21 09/23/21 21:00 History TAB] Zolpidem Tartrate [Zolpidem 12.5 mg PO PRN PRN 09/25/21 09/25/21 09/23/21 21:00 History Tartrate ER] Acetaminophen with Codeine 1 each PO Q8H PRN #10 09/29/21 Unknown Rx [Acetaminophen-Cod #3 Tablet] NIFEdipine [Nifedipine ER] 90 mg PO QDAY #30 09/29/21 Unknown Rx Sevelamer Carbonate [Renvela] 800 mg PO TIDWM #30 09/29/21 Unknown Rx carvediloL 25 mg PO BID #60 09/29/21 Unknown Rx Active Medications: Generic Name Dose Route Start Last Admin Trade Name Freq PRN Reason Stop Dose Admin Acetaminophen 650 mg 09/24/21 19:31 09/25/21 11:10 Acetaminophen 325 Mg Tab PO 650 mg Q6H PRN Administration Pain MILD(1-3)/Fever >100.5/GARCIA Albuterol 2.5 mg 09/24/21 19:31 Albuterol 2.5 Mg/3 Ml Nebu IH Q3HRT PRN Shortness Of Breath Ascorbic Acid 500 mg 09/24/21 22:00 09/29/21 10:29 Ascorbic Acid 500 Mg Tab PO 500 mg BID ANTHONY Administration Azithromycin 500 mg 09/26/21 20:00 09/28/21 21:10 Azithromycin 250 Mg Tab PO 09/29/21 20:01 500 mg Q24H ANTHONY Administration Protocol Carvedilol 25 mg 09/26/21 10:00 09/29/21 10:29 Carvedilol 25 Mg Tab PO 25 mg Q12HR ANHTONY Administration Cholecalciferol 1,000 unit 09/27/21 10:00 09/29/21 10:29 Cholecalciferol (Vit D3) 1000 Unit (25 Mcg) Tab PO 1,000 unit QDAY ANTHONY Administration Cyclobenzaprine HCl 10 mg 09/26/21 22:00 09/26/21 22:38 Cyclobenzaprine 10 Mg Tab PO 10 mg QHS PRN Administration Sleep Epoetin Stephen-epbx 20,000 unit 09/26/21 12:22 Epoetin Stephen-Epbx 20,000 Unit/1 Ml Vial IV PRUDENCE PRN hemodialysis Heparin Sodium (Porcine) 5,000 unit 09/24/21 22:00 09/29/21 10:29 Heparin 5,000 Unit/1 Ml Vial SUB-Q Not Given Q12HR [facility] Hydralazine HCl 10 mg 09/26/21 00:19 09/26/21 05:45 Hydralazine 20 Mg/1 Ml Inj IV 10 mg Q4HR PRN Administration Increased Blood Pressure Hydralazine HCl 50 mg 09/26/21 14:00 09/29/21 14:52 Hydralazine 25 Mg Tab PO 50 mg Q8HR ANTHONY Administration Hydromorphone HCl 0.25 mg 09/24/21 19:31 09/24/21 19:55 Hydromorphone 0.5 Mg/0.5 Ml Inj IV 0.25 mg Q4H PRN Administration Pain, Moderate (4-6) Hydromorphone HCl 0.5 mg 09/25/21 11:00 09/28/21 23:47 Hydromorphone 0.5 Mg/0.5 Ml Inj IV 0.5 mg Q4H PRN Administration Pain , Severe (7-10) Cefazolin Sodium 2 gm/ Sodium 100 mls @ 200 mls/hr 09/28/21 18:00 09/28/21 19:49 Chloride IV 200 mls/hr Q24H ANTHONY Administration Protocol Nifedipine 90 mg 09/26/21 10:00 09/29/21 10:29 Nifedipine Xl 90 Mg Tab PO 90 mg QDAY [facility] Administration Ondansetron HCl 4 mg 09/26/21 01:03 09/27/21 00:49 Ondansetron 4 Mg/2 Ml Inj IV 4 mg Q6H PRN Administration Nausea And Vomiting Oxycodone/Acetaminophen 1 tab 09/24/21 19:31 Oxycodone /Acetaminophen 5-325mg Tab PO Q6H PRN Pain, Moderate (4-6) Sevelamer Carbonate 800 mg 09/26/21 08:00 09/29/21 14:52 Sevelamer Carbonate 800 Mg Tab PO 800 mg TIDWM ANTHONY Administration Sodium Chloride 10 ml 09/24/21 22:00 09/29/21 10:29 Sodium Chloride 0.9% 10 Ml Flush Syringe IV 10 ml BID ANTHONY Administration Sodium Chloride 10 ml 09/24/21 19:31 Sodium Chloride 0.9% 10 Ml Flush Syringe IV PRN PRN LINE FLUSH Zinc Sulfate 220 mg 09/24/21 22:00 09/29/21 10:29 Zinc Sulfate 220 Mg Cap PO Not Given BID ANTHONY
[2021-09-29] MEDS: HYDROmorphone 0.5 MG/0.5 ML INJ IV PRN (23:45)
[2021-09-29] MEDS: AZITHROMYCIN 250 MG TAB PO SCH (23:46)
[2021-09-30] MEDS: hydrALAZINE 20 MG/1 ML INJ IV PRN (00:25)
[2021-09-30] MEDS: hydrALAZINE 25 MG TAB PO SCH ×3 (06:30→22:30)
[2021-09-30] MEDS: NIFEdipine XL 90 MG TAB PO SCH (09:52)
[2021-09-30] MEDS: HEPARIN 5,000 UNIT/1 ML VIAL SUB-Q SCH ×2 (09:52→22:30)
[2021-09-30] MEDS: carvediloL 25 MG TAB PO SCH ×2 (09:52→22:30)
[2021-09-30] MEDS: SEVELAMER CARBONATE 800 MG TAB PO SCH ×3 (09:52→17:04)
[2021-09-30] MEDS: ASCORBIC ACID 500 MG TAB PO SCH (09:53)
[2021-09-30] MEDS: CHOLECALCIFEROL (VIT D3) 1000 UNIT (25 mcg) TAB PO SCH (09:53)
[2021-09-30] MEDS: ZINC SULFATE 220 MG CAP PO SCH (09:53)
--- NOTE | 2021-09-30 10:42 | Progress Note ---
Assessment and Plan Assessment and plan: #Sepsis secondary to pneumonia and bacteremia-resolved #Pneumonia #MSSA bacteremia -not requiring supplemental O2 -continue cefazolin until 10/25/2021 -awaiting IV abx set up -ID following, assistance appreciated #Acute hypoxemic respiratory failure-resolved -currently on RA -secondary to pneumonia #Anemia of chronic disease -stable -likely secondary to ESRD -transfuse for Hgb less than 7 #End stage renal disease requiring dialysis #Hyperkalemia-resolved -performs dialysis at home -HD while inpatient -Nephrology following, assistance appreciated #Hypertension -uncontrolled -continue hydralazine, nifedipine, and coreg -continue PRN medications #Toxic metabolic encephalopathy-resolved -likely secondary to sepsis #Advance care planning -Disease education data, care plan discussed, diagnoses discussed, prognosis discussed, patient is full code. Patient family knowledges understanding and agreement with care plan, +30 minutes. History Interval history: No acute events overnight. Patient upset about not being discharged due to IV antibiotics not being set up. He has no complaints at this time. Hospitalist Physical - Physical exam Narrative exam: GENERAL: Well-developed well-nourished. In no acute distress. HEENT: Normocephalic. Atraumatic. CHEST/LUNGS: CTAB on room air HEART/CARDIOVASCULAR: RRR. No murmur, rubs or gallops appreciated. ABDOMEN: +BS. NT/ND. NEURO: No focal motor deficit. Follows all commands and is ambulatory. MUSCULOSKELETAL: No joint effusion EXTREMITIES: No cyanosis, clubbing or edema. PSYCH: Cooperative. - Constitutional Vitals: Temp Pulse Resp BP Pulse Ox 98.2 F 76 20 179/113 97 09/30/21 08:00 09/30/21 10:00 09/30/21 10:00 09/30/21 08:00 09/30/21 10:00 General appearance: Present: mild distress HEART Score - HEART Score Troponin: Troponin T 0.083 ng/mL (0.00-0.029) H 09/24/21 16:12 Results - Labs CBC & Chem 7: 09/27/21 04:06 09/28/21 04:33 Labs: Laboratory Last Values WBC 9.1 K/mm3 (4.5-11.0) 09/27/21 04:06 RBC 2.95 M/mm3 (3.65-5.03) L 09/27/21 04:06 Hgb 8.3 gm/dl (11.8-15.2) L 09/27/21 04:06 Hct 25.4 % (35.5-45.6) L 09/27/21 04:06 MCV 86 fl (84-94) 09/27/21 04:06 MCH 28 pg (28-32) 09/27/21 04:06 MCHC 33 % (32-34) 09/27/21 04:06 RDW 17.6 % (13.2-15.2) H 09/27/21 04:06 Plt Count 200 K/mm3 (140-440) 09/27/21 04:06 Lymph % (Auto) 8.9 % (13.4-35.0) L 09/24/21 14:28 [place] % (Auto) 12.1 % (0.0-7.3) H 09/24/21 14:28 Eos % (Auto) 0.1 % (0.0-4.3) 09/24/21 14:28 Baso % (Auto) 0.4 % (0.0-1.8) 09/24/21 14:28 Lymph # (Auto) 1.1 K/mm3 (1.2-5.4) L 09/24/21 14:28 [place] # (Auto) 1.4 K/mm3 (0.0-0.8) H 09/24/21 14:28 Eos # (Auto) 0.0 K/mm3 (0.0-0.4) 09/24/21 14:28 Baso # (Auto) 0.1 K/mm3 (0.0-0.1) 09/24/21 14:28 Seg Neutrophils % 78.5 % (40.0-70.0) H 09/24/21 14:28 Seg Neutrophils # 9.3 K/mm3 (1.8-7.7) H 09/24/21 14:28 PT 15.3 Sec. (12.2-14.9) H 09/24/21 14:28 INR 1.09 (0.87-1.13) 09/24/21 14:28 ABG pH 7.399 pH Units (7.350-7.450) 09/25/21 07:52 ABG pCO2 38.5 mm Hg 09/25/21 07:52 ABG pO2 56.0 mm Hg (80.0-90.0) L 09/25/21 07:52 ABG HCO3 23.2 mmol/L (20.0-26.0) 09/25/21 07:52 ABG O2 Saturation 91.4 % (95.0-99.0) L 09/25/21 07:52 ABG O2 Content 9.3 (0.0-44) 09/25/21 07:52 ABG Base Excess -1.4 mmol/L (-2.0-3.0) 09/25/21 07:52 ABG Hemoglobin 7.3 gm/dl (14.0-18.0) L 09/25/21 07:52 ABG Carboxyhemoglobin 1.7 % (0.0-5.0) 09/25/21 07:52 ABG Methemoglobin 0.5 % (0.0-1.5) 09/25/21 07:52 Oxyhemoglobin 89.5 % (95.0-99.0) L 09/25/21 07:52 FiO2 21 % 09/25/21 07:52 Sodium 134 mmol/L (137-145) L 09/28/21 04:33 Potassium 3.6 mmol/L (3.6-5.0) 09/28/21 04:33 Chloride 91.1 mmol/L (98-107) L 09/28/21 04:33 Carbon Dioxide 25 mmol/L (22-30) 09/28/21 04:33 Anion Gap 22 mmol/L 09/28/21 04:33 BUN 57 mg/dL (9-20) H 09/28/21 04:33 Creatinine 10.7 mg/dL (0.8-1.3) H 09/28/21 04:33 Estimated GFR 6 ml/min 09/28/21 04:33 BUN/Creatinine Ratio 5 % 09/28/21 04:33 Glucose 105 mg/dL (75-100) H 09/28/21 04:33 POC Glucose 124 mg/dL (70-105) H 09/24/21 19:04 Lactic Acid 1.40 mmol/L (0.7-2.0) 09/24/21 20:48 Calcium 8.8 mg/dL (8.4-10.2) 09/28/21 04:33 Phosphorus 6.20 mg/dL (2.5-4.5) H 09/26/21 04:37 Magnesium 2.40 mg/dL (1.7-2.3) H 09/24/21 16:12 Total Bilirubin 0.50 mg/dL (0.1-1.2) 09/24/21 16:12 AST 15 units/L (5-40) 09/24/21 16:12 ALT 18 units/L (7-56) 09/24/21 16:12 Alkaline Phosphatase 125 units/L (35-129) 09/24/21 16:12 Total Creatine Kinase 63 units/L (55-170) 09/24/21 16:12 Troponin T 0.083 ng/mL (0.00-0.029) H 09/24/21 16:12 Total Protein 8.2 g/dL (6.3-8.2) 09/24/21 16:12 Albumin 3.7 g/dL (3.9-5) L 09/24/21 16:12 Albumin/Globulin Ratio 0.8 % 09/24/21 16:12 Triglycerides 169 mg/dL (2-149) H 09/24/21 16:12 Cholesterol 117 mg/dL (50-199) 09/24/21 16:12 LDL Cholesterol Direct 50 mg/dL (50-130) 09/24/21 16:12 HDL Cholesterol 23 mg/dL (40-59) L 09/24/21 16:12 Cholesterol/HDL Ratio 5.08 % 09/24/21 16:12 Lipase 14 units/L (13-60) 09/24/21 14:28 Nasal Screen MRSA (PCR) Negative (Negative) 09/25/21 Unknown Random Vancomycin 16.0 ug/mL (0-40.0) 09/26/21 09:40 Coronavirus (PCR) Negative (Negative) 09/25/21 Unknown Hepatitis A IgM Ab Non-reactive (NonReactive) 09/25/21 13:32 Hep Bs Antigen Non-reactive (Negative) 09/25/21 13:32 Hep B Core IgM Ab Non-reactive (NonReactive) 09/25/21 13:32 Hepatitis C Antibody Non-reactive (NonReactive) 09/25/21 13:32 Microbiology: Microbiology 09/26/21 15:46 Peripheral/Venous Blood Culture - Preliminary NO GROWTH AFTER 72 HOURS 09/26/21 15:46 Peripheral/Venous Blood Culture - Preliminary NO GROWTH AFTER 72 HOURS Active Medications - Current Medications Current Medications: Generic Name Dose Route Start Last Admin Trade Name Freq PRN Reason Stop Dose Admin Acetaminophen 650 mg 09/24/21 19:31 09/25/21 11:10 Acetaminophen 325 Mg Tab PO 650 mg Q6H PRN Administration Pain MILD(1-3)/Fever >100.5/GARCIA Albuterol 2.5 mg 09/24/21 19:31 Albuterol 2.5 Mg/3 Ml Nebu IH Q3HRT PRN Shortness Of Breath Ascorbic Acid 500 mg 09/24/21 22:00 09/30/21 09:53 Ascorbic Acid 500 Mg Tab PO 500 mg BID ANTHONY Administration Carvedilol 25 mg 09/26/21 10:00 09/30/21 09:52 Carvedilol 25 Mg Tab PO 25 mg Q12HR ANTHONY Administration Cholecalciferol 1,000 unit 09/27/21 10:00 09/30/21 09:53 Cholecalciferol (Vit D3) 1000 Unit (25 Mcg) Tab PO 1,000 unit QDAY ANTHONY Administration Cyclobenzaprine HCl 10 mg 09/26/21 22:00 09/26/21 22:38 Cyclobenzaprine 10 Mg Tab PO 10 mg QHS PRN Administration Sleep Epoetin Stephen-epbx 20,000 unit 09/26/21 12:22 Epoetin Stephen-Epbx 20,000 Unit/1 Ml Vial IV PRUDENCE PRN hemodialysis Heparin Sodium (Porcine) 5,000 unit 09/24/21 22:00 09/30/21 09:52 Heparin 5,000 Unit/1 Ml Vial SUB-Q 5,000 unit Q12HR ANTHONY Administration Hydralazine HCl 10 mg 09/26/21 00:19 09/30/21 00:25 Hydralazine 20 Mg/1 Ml Inj IV 10 mg Q4HR PRN Administration Increased Blood Pressure Hydralazine HCl 50 mg 09/26/21 14:00 09/30/21 06:30 Hydralazine 25 Mg Tab PO 50 mg Q8HR ANTHONY Administration Hydromorphone HCl 0.25 mg 09/24/21 19:31 09/24/21 19:55 Hydromorphone 0.5 Mg/0.5 Ml Inj IV 0.25 mg Q4H PRN Administration Pain, Moderate (4-6) Hydromorphone HCl 0.5 mg 09/25/21 11:00 09/29/21 23:45 Hydromorphone 0.5 Mg/0.5 Ml Inj IV 0.5 mg Q4H PRN Administration Pain , Severe (7-10) Cefazolin Sodium 2 gm/ Sodium 100 mls @ 200 mls/hr 09/28/21 18:00 09/29/21 18:21 Chloride IV 200 mls/hr Q24H ANTHONY Administration Protocol Nifedipine 90 mg 09/26/21 10:00 09/30/21 09:52 Nifedipine Xl 90 Mg Tab PO 90 mg QDAY ANTHONY Administration Ondansetron HCl 4 mg 09/26/21 01:03 09/27/21 00:49 Ondansetron 4 Mg/2 Ml Inj IV 4 mg Q6H PRN Administration Nausea And Vomiting Oxycodone/Acetaminophen 1 tab 09/24/21 19:31 Oxycodone /Acetaminophen 5-325mg Tab PO Q6H PRN Pain, Moderate (4-6) Sevelamer Carbonate 800 mg 09/26/21 08:00 09/30/21 09:52 Sevelamer Carbonate 800 Mg Tab PO 800 mg TIDWM ANTHONY Administration Sodium Chloride 10 ml 09/24/21 22:00 09/30/21 09:53 Sodium Chloride 0.9% 10 Ml Flush Syringe IV 10 ml BID ANTHONY Administration Sodium Chloride 10 ml 09/24/21 19:31 Sodium Chloride 0.9% 10 Ml Flush Syringe IV PRN PRN LINE FLUSH Zinc Sulfate 220 mg 09/24/21 22:00 09/30/21 09:53 Zinc Sulfate 220 Mg Cap PO 220 mg BID ANTHONY Administration Nutrition/Malnutrition Assess - Dietary Evaluation Nutrition/Malnutrition Findings: Nutrition Notes Start: 09/25/21 17:29 Freq: Status: Active Protocol: Document 09/25/21 17:29 EVELIO (Rec: 09/25/21 17:52 EVELIO [id number]) Nutrition Notes Need for Assessment generated from: housefellow Initial or Follow up Assessment Current Diagnosis CKD (stage V CKD),Sepsis Other Pertinent Diagnosis ESRD+HD, Pneumonia, Anemia, Metabolic Encephalopathy, COVID-19 pui, ... Current Diet Renal Diet (since D 09/25). Labs/Tests 09/24: Na 134, K 5.6, Cl 98.9, CO2 20, BUN 94, Crea 17.1, Glu 107, Mg 2.4. Pertinent Medications 09/25: Vit C, Vit D3, ZnSO4, others nutritionally unremarkable. Height 6 ft 1 in Weight 92.98 kg [place] Body Weight (kg) 83.63 BMI 27.0 Intake Prior to Admission Good Weight change and time frame Pt states not having loss body weight [employer]. Weight Status Overweight Subjective/Other Information RD consult for skin risk assessment. No reports available on Pt's PO intake of meals at the time , will assess at F/U. Pt is on Nasal Cannula, O2 saturation @ 100%, according to Physical Assesment History notes. Pt has missing teeth, according to Physical Assesment History notes. Pt presents diarrhea, according to Physical Assesment History notes. Pt passed bedside Swallow evaluation on 09/25, according to Progress notes. Pt shows no signs of concern for skin risk at the time, according to Physical Assesment History notes. Percent of energy/protein needs met: Prescribed Renal Diet provides for energy/protein needs (2, 072 Kcal/77 g) during LOS. Burn Absent Trauma Absent GI Symptoms Diarrhea Food Allergy No Skin Integrity/Comment Assessment WNL. Minimum of two criteria No #1 Nutrition Diagnosis No nutrition diagnosis at this time Comments: Will assess Pt's PO intake of meals at F/U. Is patient on ventilator? No Is Patient Ambulatory and/or Out of Bed Yes REE-([facility]-ambulatory/OOB) [ 2422.784 [id number]] Kcal/Kg value to use for calculation 24 Approximate Energy Requirements Using 2232 kcal/Kg Calculation Used for Recommendations Kcal/kg Additional Notes Protein: >1.2 g/Kg ABW; >112 g /day. Fluids: 1 ml/Kcal, or as per MD. Nutrition Intervention Change Diet Order: Continue Renal Diet. Follow-Up By: 10/02/21 Additional Comments Continue monitoring food tolerance, %PO intake of meals , and BM.
--- NOTE | 2021-09-30 10:42 | Progress Note ---
Assessment and Plan Cultures: Blood culture MSSA COVID-19 pending A/P: 46-year-old male past medical history ESRD on home dialysis now with: #Acute sepsis: With leukocytosis, tachypnea. Likely secondary to gram-positive bacteremia, possible COVID-19. #Staph bacteremia: MSSA. Likely secondary to dialysis. #Pneumonia: Negative COVID-19 PCR. #ESRD on HD: Renally dose medications. Recs: -systems development manager consulted for Ancef 2g-2g-3g with HD until 10/25/2021 Thank you for the consult, we will sign off. Okay to discharge after HD antibiotics arranged. Isidro Sprague MD [facility] ([facility]) O: [phone] F: [phone] Subjective Date of service: 09/30/21 Principal diagnosis: ESRD Interval history: Afebrile, normal white count. Objective - Exam Narrative Exam: Physical exam deferred to reduce risk of transmission of COVID-19. Please refer to primary team's note. - Constitutional Vitals: Vital Signs Temp Pulse Resp BP Pulse Ox 98.2 F 76 20 179/113 97 09/30/21 08:00 09/30/21 10:00 09/30/21 10:00 09/30/21 08:00 09/30/21 10:00 Temperature -Last 24 Hours Temperature 98.2 F Temperature 98.3 F Temperature 98.1 F Temperature 97.7 F - Labs CBC & Chem 7: 09/27/21 04:06 09/28/21 04:33
--- NOTE | 2021-09-30 14:21 | Progress Note ---
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 Villegas Subjective Date of service: 09/30/21 Principal diagnosis: ESRD Interval history: Pt seen in the chair on the phone, states he feels ok today, no family at bedside Objective - Vital Signs Vital signs: Vital Signs - 12hr 09/30/21 09/30/21 09/30/21 04:39 08:00 10:00 Temperature 98.2 F Pulse Rate 103 H 73 76 Respiratory 18 Rate Respiratory 20 Rate [Back] Blood Pressure 148/99 179/113 O2 Sat by Pulse 99 97 97 Oximetry - General Appearance General appearance: well-developed EENT: ATNC Neck: no JVD Respiratory: Present: Decreased Breath Sounds Cardiology: regular, S1S2, other (ACCESS: Left AVF + thrill and bruit noted) Gastrointestinal: normoactive bowel sounds, no tenderness Integumentary: warm and dry Neurologic: alert and oriented x3 Musculoskeletal: other (no edema to BLE) Psychiatric: cooperative - Lab 09/27/21 04:06 09/28/21 04:33 Most recent lab results ABG pH 7.399 pH Units (7.350-7.450) 09/25/21 07:52 ABG pCO2 38.5 mm Hg 09/25/21 07:52 ABG pO2 56.0 mm Hg (80.0-90.0) L 09/25/21 07:52 ABG HCO3 23.2 mmol/L (20.0-26.0) 09/25/21 07:52 ABG O2 Saturation 91.4 % (95.0-99.0) L 09/25/21 07:52 Calcium 8.8 mg/dL (8.4-10.2) 09/28/21 04:33 Phosphorus 6.20 mg/dL (2.5-4.5) H 09/26/21 04:37 Magnesium 2.40 mg/dL (1.7-2.3) H 09/24/21 16:12 Medications & Allergies - Medications Allergies/Adverse Reactions: Allergies No Known Allergies Allergy (Unverified 09/24/21 12:37) Home Medications: Home Medications Medication Instructions Recorded Confirmed Last Taken Type Cyclobenzaprine [Flexeril 10 MG 10 mg PO QHS PRN 09/25/21 09/25/21 09/23/21 21:00 History TAB] Zolpidem Tartrate [Zolpidem 12.5 mg PO PRN PRN 09/25/21 09/25/21 09/23/21 21:00 History Tartrate ER] Acetaminophen with Codeine 1 each PO Q8H PRN #10 09/29/21 Unknown Rx [Acetaminophen-Cod #3 Tablet] NIFEdipine [Nifedipine ER] 90 mg PO QDAY #30 09/29/21 Unknown Rx Sevelamer Carbonate [Renvela] 800 mg PO TIDWM #30 09/29/21 Unknown Rx carvediloL 25 mg PO BID #60 09/29/21 Unknown Rx Active Medications: Generic Name Dose Route Start Last Admin Trade Name Saranq PRN Reason Stop Dose Admin Acetaminophen 650 mg 09/24/21 19:31 09/25/21 11:10 Acetaminophen 325 Mg Tab PO 650 mg Q6H PRN Administration Pain MILD(1-3)/Fever >100.5/GARCIA Albuterol 2.5 mg 09/24/21 19:31 Albuterol 2.5 Mg/3 Ml Nebu IH Q3HRT PRN Shortness Of Breath Carvedilol 25 mg 09/26/21 10:00 09/30/21 09:52 Carvedilol 25 Mg Tab PO 25 mg Q12HR ANTHONY Administration Cholecalciferol 1,000 unit 09/27/21 10:00 09/30/21 09:53 Cholecalciferol (Vit D3) 1000 Unit (25 Mcg) Tab PO 1,000 unit QDAY ANTHONY Administration Cyclobenzaprine HCl 10 mg 09/26/21 22:00 09/26/21 22:38 Cyclobenzaprine 10 Mg Tab PO 10 mg QHS PRN Administration Sleep Epoetin Stephen-epbx 20,000 unit 09/26/21 12:22 Epoetin Stephen-Epbx 20,000 Unit/1 Ml Vial IV PRUDENCE PRN hemodialysis Heparin Sodium (Porcine) 5,000 unit 09/24/21 22:00 09/30/21 09:52 Heparin 5,000 Unit/1 Ml Vial SUB-Q 5,000 unit Q12HR ANTHONY Administration Hydralazine HCl 10 mg 09/26/21 00:19 09/30/21 00:25 Hydralazine 20 Mg/1 Ml Inj IV 10 mg Q4HR PRN Administration Increased Blood Pressure Hydralazine HCl 50 mg 09/26/21 14:00 09/30/21 06:30 Hydralazine 25 Mg Tab PO 50 mg Q8HR ANTHONY Administration Hydromorphone HCl 0.25 mg 09/24/21 19:31 09/24/21 19:55 Hydromorphone 0.5 Mg/0.5 Ml Inj IV 0.25 mg Q4H PRN Administration Pain, Moderate (4-6) Hydromorphone HCl 0.5 mg 09/25/21 11:00 09/29/21 23:45 Hydromorphone 0.5 Mg/0.5 Ml Inj IV 0.5 mg Q4H PRN Administration Pain , Severe (7-10) Cefazolin Sodium 2 gm/ Sodium 100 mls @ 200 mls/hr 09/28/21 18:00 09/29/21 18:21 Chloride IV 200 mls/hr Q24H ANTHONY Administration Protocol Nifedipine 90 mg 09/26/21 10:00 09/30/21 09:52 Nifedipine Xl 90 Mg Tab PO 90 mg QDAY ANTHONY Administration Ondansetron HCl 4 mg 09/26/21 01:03 09/27/21 00:49 Ondansetron 4 Mg/2 Ml Inj IV 4 mg Q6H PRN Administration Nausea And Vomiting Oxycodone/Acetaminophen 1 tab 09/24/21 19:31 Oxycodone /Acetaminophen 5-325mg Tab PO Q6H PRN Pain, Moderate (4-6) Sevelamer Carbonate 800 mg 09/26/21 08:00 09/30/21 09:52 Sevelamer Carbonate 800 Mg Tab PO 800 mg TIDWM ANTHONY Administration Sodium Chloride 10 ml 09/24/21 22:00 09/30/21 09:53 Sodium Chloride 0.9% 10 Ml Flush Syringe IV 10 ml BID ANTHONY Administration Sodium Chloride 10 ml 09/24/21 19:31 Sodium Chloride 0.9% 10 Ml Flush Syringe IV PRN PRN LINE FLUSH
[2021-09-30] MEDS: CYCLOBENZAPRINE 10 MG TAB PO PRN (23:00)
[2021-10-01 05:08] LABS: Calcium 9.3 mg/dL (8.4-10.2)
[2021-10-01] MEDS: HYDROmorphone 0.5 MG/0.5 ML INJ IV PRN (06:56)
[2021-10-01] MEDS: hydrALAZINE 25 MG TAB PO SCH ×2 (06:56→15:24)
[2021-10-01] MEDS: CHOLECALCIFEROL (VIT D3) 1000 UNIT (25 mcg) TAB PO SCH (09:44)
[2021-10-01] MEDS: carvediloL 25 MG TAB PO SCH (09:44)
[2021-10-01] MEDS: NIFEdipine XL 90 MG TAB PO SCH (09:44)
[2021-10-01] MEDS: SEVELAMER CARBONATE 800 MG TAB PO SCH ×2 (09:44→15:05)
[2021-10-01] MEDS: HEPARIN 5,000 UNIT/1 ML VIAL SUB-Q SCH (09:45)
--- NOTE | 2021-10-01 10:28 | Progress Note ---
Assessment and Plan Assessment: ESRD on hemodialysis Hypertension AMS Sepsis Anemia Hyperkalemia, Resolved Hyperphosphatemia Plan: Hemodialysis today for UF and clearance. 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 Villegas Subjective Date of service: 10/01/21 Principal diagnosis: ESRD Interval history: Patient seen sitting up in bed. Reviewed renal plan for HD today. Objective - Vital Signs Vital signs: Vital Signs - 12hr 10/01/21 10/01/21 10/01/21 00:00 00:31 04:35 Temperature 98.6 F 98.0 F Pulse Rate 97 H 96 H Respiratory 20 18 18 Rate Blood Pressure 137/86 143/83 O2 Sat by Pulse 90 90 Oximetry 10/01/21 10/01/21 08:12 08:16 Temperature 98.5 F Pulse Rate 104 H Respiratory Rate Blood Pressure 153/93 O2 Sat by Pulse 90 95 Oximetry - General Appearance General appearance: well-developed, appears stated age EENT: ATNC, PERRL, hearing intact, vision intact Neck: no JVD, supple Respiratory: Present: Decreased Breath Sounds Cardiology: S1S2 Gastrointestinal: normoactive bowel sounds Integumentary: warm and dry Neurologic: alert and oriented x3 Musculoskeletal: other (No edema) - Lab 09/27/21 04:06 10/01/21 03:52 Most recent lab results ABG pH 7.399 pH Units (7.350-7.450) 09/25/21 07:52 ABG pCO2 38.5 mm Hg 09/25/21 07:52 ABG pO2 56.0 mm Hg (80.0-90.0) L 09/25/21 07:52 ABG HCO3 23.2 mmol/L (20.0-26.0) 09/25/21 07:52 ABG O2 Saturation 91.4 % (95.0-99.0) L 09/25/21 07:52 Calcium 9.3 mg/dL (8.4-10.2) 10/01/21 03:52 Phosphorus 6.20 mg/dL (2.5-4.5) H 09/26/21 04:37 Magnesium 2.40 mg/dL (1.7-2.3) H 09/24/21 16:12 Medications & Allergies - Medications Allergies/Adverse Reactions: Allergies No Known Allergies Allergy (Unverified 09/24/21 12:37) Home Medications: Home Medications Medication Instructions Recorded Confirmed Last Taken Type Cyclobenzaprine [Flexeril 10 MG 10 mg PO QHS PRN 09/25/21 09/25/21 09/23/21 21:00 History TAB] Zolpidem Tartrate [Zolpidem 12.5 mg PO PRN PRN 09/25/21 09/25/21 09/23/21 21:00 History Tartrate ER] Acetaminophen with Codeine 1 each PO Q8H PRN #10 09/29/21 Unknown Rx [Acetaminophen-Cod #3 Tablet] NIFEdipine [Nifedipine ER] 90 mg PO QDAY #30 09/29/21 Unknown Rx Sevelamer Carbonate [Renvela] 800 mg PO TIDWM #30 09/29/21 Unknown Rx carvediloL 25 mg PO BID #60 09/29/21 Unknown Rx Active Medications: Generic Name Dose Route Start Last Admin Trade Name Saranq PRN Reason Stop Dose Admin Acetaminophen 650 mg 09/24/21 19:31 09/25/21 11:10 Acetaminophen 325 Mg Tab PO 650 mg Q6H PRN Administration Pain MILD(1-3)/Fever >100.5/GARCIA Albuterol 2.5 mg 09/24/21 19:31 Albuterol 2.5 Mg/3 Ml Nebu IH Q3HRT PRN Shortness Of Breath Carvedilol 25 mg 09/26/21 10:00 10/01/21 09:44 Carvedilol 25 Mg Tab PO 25 mg Q12HR ANTHONY Administration Cholecalciferol 1,000 unit 09/27/21 10:00 10/01/21 09:44 Cholecalciferol (Vit D3) 1000 Unit (25 Mcg) Tab PO 1,000 unit QDAY ANTHONY Administration Cyclobenzaprine HCl 10 mg 09/26/21 22:00 09/30/21 23:00 Cyclobenzaprine 10 Mg Tab PO 10 mg QHS PRN Administration Sleep Epoetin Stephen-epbx 20,000 unit 09/26/21 12:22 Epoetin Stephen-Epbx 20,000 Unit/1 Ml Vial IV PRUDENCE PRN hemodialysis Heparin Sodium (Porcine) 5,000 unit 09/24/21 22:00 10/01/21 09:45 Heparin 5,000 Unit/1 Ml Vial SUB-Q Not Given Q12HR [facility] Hydralazine HCl 10 mg 09/26/21 00:19 09/30/21 00:25 Hydralazine 20 Mg/1 Ml Inj IV 10 mg Q4HR PRN Administration Increased Blood Pressure Hydralazine HCl 50 mg 09/26/21 14:00 10/01/21 06:56 Hydralazine 25 Mg Tab PO 50 mg Q8HR ANTHONY Administration Hydromorphone HCl 0.25 mg 09/24/21 19:31 09/24/21 19:55 Hydromorphone 0.5 Mg/0.5 Ml Inj IV 0.25 mg Q4H PRN Administration Pain, Moderate (4-6) Hydromorphone HCl 0.5 mg 09/25/21 11:00 10/01/21 06:56 Hydromorphone 0.5 Mg/0.5 Ml Inj IV 0.5 mg Q4H PRN Administration Pain , Severe (7-10) Cefazolin Sodium 2 gm/ Sodium 100 mls @ 200 mls/hr 09/28/21 18:00 09/30/21 17:04 Chloride IV 200 mls/hr Q24H ANTHONY Administration Protocol Nifedipine 90 mg 09/26/21 10:00 10/01/21 09:44 Nifedipine Xl 90 Mg Tab PO 90 mg QDAY ANTHONY Administration Ondansetron HCl 4 mg 09/26/21 01:03 09/27/21 00:49 Ondansetron 4 Mg/2 Ml Inj IV 4 mg Q6H PRN Administration Nausea And Vomiting Oxycodone/Acetaminophen 1 tab 09/24/21 19:31 09/30/21 23:00 Oxycodone /Acetaminophen 5-325mg Tab PO 1 tab Q6H PRN Administration Pain, Moderate (4-6) Sevelamer Carbonate 800 mg 09/26/21 08:00 10/01/21 09:44 Sevelamer Carbonate 800 Mg Tab PO 800 mg TIDWM ANTHONY Administration Sodium Chloride 10 ml 05/24/22 22:00 10/01/21 09:45 Sodium Chloride 0.9% 10 Ml Flush Syringe IV 10 ml BID ANTHONY Administration Sodium Chloride 10 ml 09/24/21 19:31 Sodium Chloride 0.9% 10 Ml Flush Syringe IV PRN PRN LINE FLUSH
--- NOTE | 2021-10-01 15:18 | Progress Note ---
Assessment and Plan Assessment and plan: #Sepsis secondary to pneumonia and bacteremia-resolved #Pneumonia #MSSA bacteremia -not requiring supplemental O2 -continue cefazolin until 10/25/2021 -awaiting IV abx set up -ID following, assistance appreciated #Acute hypoxemic respiratory failure-resolved -currently on RA -secondary to pneumonia #Anemia of chronic disease -stable -likely secondary to ESRD -transfuse for Hgb less than 7 #End stage renal disease requiring dialysis #Hyperkalemia-resolved -performs dialysis at home -HD while inpatient -Nephrology following, assistance appreciated #Hypertension -uncontrolled -continue hydralazine, nifedipine, and coreg -continue PRN medications #Toxic metabolic encephalopathy-resolved -likely secondary to sepsis #Advance care planning -Disease education data, care plan discussed, diagnoses discussed, prognosis discussed, patient is full code. Patient family knowledges understanding and agreement with care plan, +30 minutes. #Discharge planning - Patient is pending setting up IV antibiotics in the outpatient setting. - Case management has been made aware. Disposition Plan: Continue medical management Total Time Spent with Patient (Minutes): 45 minutes History Interval history: No acute events overnight. Hospitalist Physical - Constitutional Vitals: Temp Pulse Resp BP Pulse Ox 98.5 F 104 H 18 153/93 95 10/01/21 08:12 10/01/21 08:12 10/01/21 04:35 10/01/21 08:12 10/01/21 08:16 General appearance: Present: no acute distress, well-nourished - EENT Eyes: Present: PERRL, EOM intact ENT: hearing intact, clear oral mucosa, dentition normal - Neck Neck: Present: supple, normal ROM - Respiratory Respiratory effort: normal Respiratory: bilateral: CTA - Cardiovascular Rhythm: regular Heart Sounds: Present: S1 & S2 - Extremities Extremities: no ischemia, pulses intact, pulses symmetrical, No edema, normal temperature, normal color, Full ROM, abnormal (Left upper extremity AV fistula with palpable thrill) Peripheral Pulses: within normal limits - Abdominal General gastrointestinal: soft, non-tender, non-distended, normal bowel sounds - Integumentary Integumentary: Present: clear, warm, dry - Psychiatric Psychiatric: appropriate mood/affect, intact judgment & insight, memory intact, cooperative - Neurologic Neurologic: CNII-XII intact, moves all extremities - Allied Health Allied health notes reviewed: nursing HEART Score - HEART Score Troponin: Troponin T 0.083 ng/mL (0.00-0.029) H 09/24/21 16:12 Results - Labs CBC & Chem 7: 09/27/21 04:06 10/01/21 03:52 Labs: Laboratory Last Values WBC 9.1 K/mm3 (4.5-11.0) 09/27/21 04:06 RBC 2.95 M/mm3 (3.65-5.03) L 09/27/21 04:06 Hgb 8.3 gm/dl (11.8-15.2) L 09/27/21 04:06 Hct 25.4 % (35.5-45.6) L 09/27/21 04:06 MCV 86 fl (84-94) 09/27/21 04:06 MCH 28 pg (28-32) 09/27/21 04:06 MCHC 33 % (32-34) 09/27/21 04:06 RDW 17.6 % (13.2-15.2) H 09/27/21 04:06 Plt Count 200 K/mm3 (140-440) 09/27/21 04:06 Lymph % (Auto) 8.9 % (13.4-35.0) L 09/24/21 14:28 Rock % (Auto) 12.1 % (0.0-7.3) H 09/24/21 14:28 Eos % (Auto) 0.1 % (0.0-4.3) 09/24/21 14:28 Baso % (Auto) 0.4 % (0.0-1.8) 09/24/21 14:28 Lymph # (Auto) 1.1 K/mm3 (1.2-5.4) L 09/24/21 14:28 Rock # (Auto) 1.4 K/mm3 (0.0-0.8) H 09/24/21 14:28 Eos # (Auto) 0.0 K/mm3 (0.0-0.4) 09/24/21 14:28 Baso # (Auto) 0.1 K/mm3 (0.0-0.1) 09/24/21 14:28 Seg Neutrophils % 78.5 % (40.0-70.0) H 09/24/21 14:28 Seg Neutrophils # 9.3 K/mm3 (1.8-7.7) H 09/24/21 14:28 PT 15.3 Sec. (12.2-14.9) H 09/24/21 14:28 INR 1.09 (0.87-1.13) 09/24/21 14:28 ABG pH 7.399 pH Units (7.350-7.450) 09/25/21 07:52 ABG pCO2 38.5 mm Hg 09/25/21 07:52 ABG pO2 56.0 mm Hg (80.0-90.0) L 09/25/21 07:52 ABG HCO3 23.2 mmol/L (20.0-26.0) 09/25/21 07:52 ABG O2 Saturation 91.4 % (95.0-99.0) L 09/25/21 07:52 ABG O2 Content 9.3 (0.0-44) 09/25/21 07:52 ABG Base Excess -1.4 mmol/L (-2.0-3.0) 09/25/21 07:52 ABG Hemoglobin 7.3 gm/dl (14.0-18.0) L 09/25/21 07:52 ABG Carboxyhemoglobin 1.7 % (0.0-5.0) 09/25/21 07:52 ABG Methemoglobin 0.5 % (0.0-1.5) 09/25/21 07:52 Oxyhemoglobin 89.5 % (95.0-99.0) L 09/25/21 07:52 FiO2 21 % 09/25/21 07:52 Sodium 133 mmol/L (137-145) L 10/01/21 03:52 Potassium 4.1 mmol/L (3.6-5.0) 10/01/21 03:52 Chloride 91.2 mmol/L (98-107) L 10/01/21 03:52 Carbon Dioxide 21 mmol/L (22-30) L 10/01/21 03:52 Anion Gap 25 mmol/L 10/01/21 03:52 BUN 70 mg/dL (9-20) H 10/01/21 03:52 Creatinine 13.8 mg/dL (0.8-1.3) H 10/01/21 03:52 Estimated GFR 5 ml/min 10/01/21 03:52 BUN/Creatinine Ratio 5 % 10/01/21 03:52 Glucose 89 mg/dL (75-100) 10/01/21 03:52 POC Glucose 124 mg/dL (70-105) H 09/24/21 19:04 Lactic Acid 1.40 mmol/L (0.7-2.0) 09/24/21 20:48 Calcium 9.3 mg/dL (8.4-10.2) 10/01/21 03:52 Phosphorus 6.20 mg/dL (2.5-4.5) H 09/26/21 04:37 Magnesium 2.40 mg/dL (1.7-2.3) H 09/24/21 16:12 Total Bilirubin 0.50 mg/dL (0.1-1.2) 09/24/21 16:12 AST 15 units/L (5-40) 09/24/21 16:12 ALT 18 units/L (7-56) 09/24/21 16:12 Alkaline Phosphatase 125 units/L (35-129) 09/24/21 16:12 Total Creatine Kinase 63 units/L (55-170) 09/24/21 16:12 Troponin T 0.083 ng/mL (0.00-0.029) H 09/24/21 16:12 Total Protein 8.2 g/dL (6.3-8.2) 09/24/21 16:12 Albumin 3.7 g/dL (3.9-5) L 09/24/21 16:12 Albumin/Globulin Ratio 0.8 % 09/24/21 16:12 Triglycerides 169 mg/dL (2-149) H 09/24/21 16:12 Cholesterol 117 mg/dL (50-199) 09/24/21 16:12 LDL Cholesterol Direct 50 mg/dL (50-130) 09/24/21 16:12 HDL Cholesterol 23 mg/dL (40-59) L 09/24/21 16:12 Cholesterol/HDL Ratio 5.08 % 09/24/21 16:12 Lipase 14 units/L (13-60) 09/24/21 14:28 Nasal Screen MRSA (PCR) Negative (Negative) 09/25/21 Unknown Random Vancomycin 16.0 ug/mL (0-40.0) 09/26/21 09:40 Coronavirus (PCR) Negative (Negative) 09/25/21 Unknown Hepatitis A IgM Ab Non-reactive (NonReactive) 09/25/21 13:32 Hep Bs Antigen Non-reactive (Negative) 09/25/21 13:32 Hep B Core IgM Ab Non-reactive (NonReactive) 09/25/21 13:32 Hepatitis C Antibody Non-reactive (NonReactive) 09/25/21 13:32 Microbiology: Microbiology 09/26/21 15:46 Peripheral/Venous Blood Culture - Preliminary NO GROWTH AFTER 4 DAYS 09/26/21 15:46 Peripheral/Venous Blood Culture - Preliminary NO GROWTH AFTER 4 DAYS 09/24/21 17:50 Peripheral/Venous Blood Culture - Final Staphylococcus Aureus Active Medications - Current Medications Current Medications: Generic Name Dose Route Start Last Admin Trade Name Freq PRN Reason Stop Dose Admin Acetaminophen 650 mg 09/24/21 19:31 09/25/21 11:10 Acetaminophen 325 Mg Tab PO 650 mg Q6H PRN Administration Pain MILD(1-3)/Fever >100.5/GARCIA Albuterol 2.5 mg 09/24/21 19:31 Albuterol 2.5 Mg/3 Ml Nebu IH Q3HRT PRN Shortness Of Breath Carvedilol 25 mg 09/26/21 10:00 10/01/21 09:44 Carvedilol 25 Mg Tab PO 25 mg Q12HR ANTHONY Administration Cholecalciferol 1,000 unit 09/27/21 10:00 10/01/21 09:44 Cholecalciferol (Vit D3) 1000 Unit (25 Mcg) Tab PO 1,000 unit QDAY ANTHONY Administration Cyclobenzaprine HCl 10 mg 09/26/21 22:00 09/30/21 23:00 Cyclobenzaprine 10 Mg Tab PO 10 mg QHS PRN Administration Sleep Epoetin Stephen-epbx 20,000 unit 09/26/21 12:22 Epoetin Stephen-Epbx 20,000 Unit/1 Ml Vial IV PRUDENCE PRN hemodialysis Heparin Sodium (Porcine) 5,000 unit 09/24/21 22:00 10/01/21 09:45 Heparin 5,000 Unit/1 Ml Vial SUB-Q Not Given Q12HR ANTHONY Hydralazine HCl 10 mg 09/26/21 00:19 09/30/21 00:25 Hydralazine 20 Mg/1 Ml Inj IV 10 mg Q4HR PRN Administration Increased Blood Pressure Hydralazine HCl 50 mg 09/26/21 14:00 10/01/21 06:56 Hydralazine 25 Mg Tab PO 50 mg Q8HR ANTHONY Administration Hydromorphone HCl 0.25 mg 09/24/21 19:31 09/24/21 19:55 Hydromorphone 0.5 Mg/0.5 Ml Inj IV 0.25 mg Q4H PRN Administration Pain, Moderate (4-6) Hydromorphone HCl 0.5 mg 09/25/21 11:00 10/01/21 06:56 Hydromorphone 0.5 Mg/0.5 Ml Inj IV 0.5 mg Q4H PRN Administration Pain , Severe (7-10) Cefazolin Sodium 2 gm/ Sodium 100 mls @ 200 mls/hr 09/28/21 18:00 09/30/21 17:04 Chloride IV 10/25/21 18:29 200 mls/hr Q24H ANTHONY Administration Protocol Nifedipine 90 mg 09/26/21 10:00 10/01/21 09:44 Nifedipine Xl 90 Mg Tab PO 90 mg QDAY ANTHONY Administration Ondansetron HCl 4 mg 09/26/21 01:03 09/27/21 00:49 Ondansetron 4 Mg/2 Ml Inj IV 4 mg Q6H PRN Administration Nausea And Vomiting Oxycodone/Acetaminophen 1 tab 09/24/21 19:31 09/30/21 23:00 Oxycodone /Acetaminophen 5-325mg Tab PO 1 tab Q6H PRN Administration Pain, Moderate (4-6) Sevelamer Carbonate 800 mg 09/26/21 08:00 10/01/21 15:05 Sevelamer Carbonate 800 Mg Tab PO Not Given TIDWM ANTHONY Sodium Chloride 10 ml 09/24/21 22:00 10/01/21 09:45 Sodium Chloride 0.9% 10 Ml Flush Syringe IV 10 ml BID ANTHONY Administration Sodium Chloride 10 ml 09/24/21 19:31 Sodium Chloride 0.9% 10 Ml Flush Syringe IV PRN PRN LINE FLUSH Nutrition/Malnutrition Assess - Dietary Evaluation Nutrition/Malnutrition Findings: Nutrition Notes Start: 09/25/21 17:29 Freq: Status: Active Protocol: Document 09/25/21 17:29 EVELIO (Rec: 09/25/21 17:52 EVELIO [id number]) Nutrition Notes Need for Assessment generated from: health tech Initial or Follow up Assessment Current Diagnosis CKD (stage V CKD),Sepsis Other Pertinent Diagnosis ESRD+HD, Pneumonia, Anemia, Metabolic Encephalopathy, COVID-19 pui, ... Current Diet Renal Diet (since D 09/25). Labs/Tests 09/24: Na 134, K 5.6, Cl 98.9, CO2 20, BUN 94, Crea 17.1, Glu 107, Mg 2.4. Pertinent Medications 09/25: Vit C, Vit D3, ZnSO4, others nutritionally unremarkable. Height 6 ft 1 in Weight 92.98 kg Jenkins Body Weight (kg) 83.63 BMI 27.0 Intake Prior to Admission Good Weight change and time frame Pt states not having loss body weight [employer]. Weight Status Overweight Subjective/Other Information RD consult for skin risk assessment. No reports available on Pt's PO intake of meals at the time , will assess at F/U. Pt is on Nasal Cannula, O2 saturation @ 100%, according to Physical Assesment History notes. Pt has missing teeth, according to Physical Assesment History notes. Pt presents diarrhea, according to Physical Assesment History notes. Pt passed bedside Swallow evaluation on 09/25, according to Progress notes. Pt shows no signs of concern for skin risk at the time, according to Physical Assesment History notes. Percent of energy/protein needs met: Prescribed Renal Diet provides for energy/protein needs (2, 072 Kcal/77 g) during LOS. Burn Absent Trauma Absent GI Symptoms Diarrhea Food Allergy No Skin Integrity/Comment Assessment WNL. Minimum of two criteria No #1 Nutrition Diagnosis No nutrition diagnosis at this time Comments: Will assess Pt's PO intake of meals at F/U. Is patient on ventilator? No Is Patient Ambulatory and/or Out of Bed Yes REE-(Willard-St. Jeor-ambulatory/OOB) [ 2422.784 [id number]] Kcal/Kg value to use for calculation 24 Approximate Energy Requirements Using 2232 kcal/Kg Calculation Used for Recommendations Kcal/kg Additional Notes Protein: >1.2 g/Kg ABW; >112 g /day. Fluids: 1 ml/Kcal, or as per MD. Nutrition Intervention Change Diet Order: Continue Renal Diet. Follow-Up By: 10/02/21 Additional Comments Continue monitoring food tolerance, %PO intake of meals , and BM.
[2021-10-01 16:15] VITALS: BP 150/93
== END 2021-10-01 16:40 | disposition home health service (06) | DRG 871 ==
LOC: ED 12:27 → IMCU 19:31 → 4A 09-28 17:43 → UNDODISIN 10-01 16:39
PROVIDERS: ADMIT Internal Medicine; ATTEND Student in an Organized Health Care Education/Training Program
PROC: 5A1D70Z Performance of Urinary Filtration, Intermittent, Less than 6 Hours Per Day (ICD-10-PCS; principal; 2021-09-25)
PROC: 4A033R1 Measurement of Arterial Saturation, Peripheral, Percutaneous Approach (ICD-10-PCS; 2021-09-25)
PROC: 5A1D70Z Performance of Urinary Filtration, Intermittent, Less than 6 Hours Per Day (ICD-10-PCS; 2021-09-26)
PROC: 5A1D70Z Performance of Urinary Filtration, Intermittent, Less than 6 Hours Per Day (ICD-10-PCS; 2021-09-28)
PROC: 5A1D70Z Performance of Urinary Filtration, Intermittent, Less than 6 Hours Per Day (ICD-10-PCS; 2021-10-01)
DX: A41.01 Sepsis due to Methicillin susceptible Staphylococcus aureus (principal); J96.01 Acute respiratory failure with hypoxia; J18.9 Pneumonia, unspecified organism; G92.8 Other toxic encephalopathy; N18.6 End stage renal disease; I12.0 Hypertensive chronic kidney disease with stage 5 chronic kidney disease or end stage renal disease; F05 Delirium due to known physiological condition; Z20.822 Contact with and (suspected) exposure to COVID-19; E87.5 Hyperkalemia; E83.39 Other disorders of phosphorus metabolism; K76.0 Fatty (change of) liver, not elsewhere classified; D63.8 Anemia in other chronic diseases classified elsewhere; Z99.2 Dependence on renal dialysis; Z79.899 Other long term (current) drug therapy
CPT/HCPCS: 36415; 36600; 70450; 71045; 74177; 76705; 80048; 80053; 80061; 80074; 80202; 82140; 82550; 82803; 82962; 83690; 83735; 84100; 84484; 85025; 85027; 85610; 86403; 87040; 87076; 87186; 87641; 90732; 93005; 93306; 93975; 94760; G0378; J3490; Q9967; C8929; J0360; J0456; J0610; J0690; J0696; J0885; J1100; J1170; J1644; J1815; J2405; J2920; J3370; J7030; J7040; U0003